=== PATIENT | male | born 1965 | race Caucasian/White ===

== ENCOUNTER → 2018-10-01 | Outpatient (CLI) | payer BC ==
--- NOTE | 2018-10-01 14:29 | ECHOF ---
Referral Reason:R07.9 Chest Pain MEASUREMENTS -------- HEIGHT: 180.3 cm WEIGHT: 95.3 kg BP: 106/49 RVIDd: 2.8 cm (< 3.3) IVSd: 1.2 cm (0.6 - 1.1) LVIDd: 4.1 cm (3.9 - 5.3) LVPWd: 1.3 cm (0.6 - 1.1) IVSs: 1.8 cm LVIDs: 2.3 cm LVPWs: 1.6 cm LA Diam: 3.8 cm (2.7 - 3.8) LAESV Index (A-L): 20.46 ml/m Ao Diam: 3.0 cm (2.0 - 3.7) AV Cusp: 2.0 cm (1.5 - 2.6) MV EXCURSION: 24.078 mm (> 18.000) MV EF SLOPE: 111 mm/s (70 - 150) EPSS: 0.5 cm MV E Todd: 1.04 m/s MV DecT: 201 ms MV A Todd: 0.70 m/s MV E/A Ratio: 1.48 RAP: 5.00 mmHg RVSP: 22.70 mmHg FINDINGS -------- Sinus rhythm. This was a technically good study. The left ventricular size is normal. There is mild concentric left ventricular hypertrophy. Overa ll left ventricular systolic function is normal with, an EF between 60 - 65 %. The right ventricle is normal in size. Normal LA size by volume 22+/-6 ml/m2. The right atrium is normal in size. Interatrial and interventricular septum intact. The aortic valve is trileaflet and appears structurally normal. Trace amount of aortic regurgitatio n. There is trace mitral regurgitation. Mild tricuspid regurgitation present. Right ventricular systolic pressure is normal at < 35 mmHg. Trace/mild (physiologic) pulmonic regurgitation. The aortic root size is normal. Normal inferior vena cava with normal inspiratory collapse consistent with estimated right atrial pre ssure of 5 mmHg. There is no pericardial effusion. CONCLUSIONS -------- 1. Sinus rhythm. 2. This was a technically good study. 3. The left ventricular size is normal. 4. There is mild concentric left ventricular hypertrophy. 5. Overall left ventricular systolic function is normal with, an EF between 60 - 65 %. 6. The right ventricle is normal in size. 7. Normal LA size by volume 22+/-6 ml/m2. 8. The right atrium is normal in size. 9. Interatrial and interventricular septum intact. 10. The aortic valve is trileaflet and appears structurally normal. 11. Trace amount of aortic regurgitation. 12. There is trace mitral regurgitation. 13. Mild tricuspid regurgitation present. 14. Right ventricular systolic pressure is normal at < 35 mmHg. 15. Trace/mild (physiologic) pulmonic regurgitation. 16. The aortic root size is normal. 17. Normal inferior vena cava with normal inspiratory collapse consistent with estimated right atrial pressure of 5 mmHg. 18. There is no pericardial effusion. MOTORCYCLE FABRICATOR: Janell Gil RDCS
--- NOTE | 2018-10-01 15:06 | ECHOS ---
STRESS ECHOCARDIOGRAM DATE OF SERVICE: 10/01/2018 INDICATIONS: Chest pain. MEDICATIONS: Dutasteride, bupropion. BASELINE HEART RATE: 75 BASELINE BLOOD PRESSURE: 106/49 MAXIMUM HEART RATE: 147 MAXIMUM BLOOD PRESSURE: 150/66 85% MPHR: 142 100% MPHR: 167 METS: 9.7 MAXIMUM STAGE REACHED: 3 TOTAL EXERCISE TIME: 8:00 CLINICAL INFORMATION: STRESS DATA: Heart rate is 75. Pressure is 106/49 mmHg. Baseline EKG showed sinus mechanism. The patient exercised on a treadmill according to Lior protocol for a total of 8 minutes and achieved 9.7 METS. Maximum heart rate was 147, which is about 88% of maximum predicted heart rate. Maximum blood pressure was 150/66 mmHg. Clinically the patient developed chest discomfort in response to exercise, and the EKG did show significant ST and T-wave abnormalities concerning for ischemia. ECHOCARDIOGRAM IMAGES: Echocardiogram images from parasternal long-axis view, parasternal short-axis view, apical 4-chamber and apical 2-chamber view were obtained as the baseline images, at the peak of the heart rate as well as on recovery. Wall motion abnormalities concerning for ischemia in the anterior and lateral segments of the LV. CONCLUSION: 1. Good exercise tolerance. 2. EKG changes in response to exercise concerning for ischemia. 3. Echocardiogram in response to exercise concerning for severe CAD. 4. Essentially abnormal stress echocardiogram for the patient. MMODL / IJN: [id number] /
== END | disposition home or self-care (01) ==
LOC: RADECHMAIN 08:20
PROVIDERS: ATTEND Family Medicine
DX: I37.1 Nonrheumatic pulmonary valve insufficiency (principal); I07.1 Rheumatic tricuspid insufficiency; R94.31 Abnormal electrocardiogram [ECG] [EKG]; R07.9 Chest pain, unspecified
CPT/HCPCS: 93306; 93351

== ENCOUNTER 2018-10-11 06:22 | Inpatient (IN) | payer BC ==
[~2018-10-11 06:22] MED LIST: ALPRAZolam 0.25 MG TAB PO PRN; ALPRAZolam 0.5 MG TAB PO PRN; ASPIRIN 325 MG TAB PO STA; ATORVASTATIN 80 MG TAB PO STA; NITROGLYCERIN SL TABS 0.4 MG TAB SUBLINGUAL PRN; SODIUM CHLORIDE 0.9% 1,000 ML in EMPTY BAG 1 BAG IV ONE
[2018-10-11] MEDS ORDERED: LIDOCAINE 1% INJ 10MG/ML (20 ML MDV) SQ ONE (07:50)
[2018-10-11] MEDS ORDERED: MIDAZOLAM (PF) 2 MG/2 ML VIAL IV ONE (07:50)
[2018-10-11] MEDS ORDERED: VERAPAMIL SYRINGE (5 MG/10 ML) INTRAARTER ONE (07:51)
[2018-10-11] MEDS ORDERED: HEPARIN SODIUM 1,000 UN/ML (10ML VL) IV ONE (07:52)
[2018-10-11] MEDS ORDERED: IOPAMIDOL-370 125ML BTL INJ ONE (07:59)
[2018-10-11] MEDS ORDERED: RX INFO: IV CONTRAST WAS GIVEN 1 EACH MISC MISCELLANE PRN (08:26)
[2018-10-11] MEDS ORDERED: SODIUM CHLORIDE 0.9% 1,000 ML IV SCH (08:30)
--- NOTE | 2018-10-11 08:35 | P.PCN ---
Date of Procedure: 10/11/18 Operative Findings: CARDIAC CATHETERIZATION PERFORMING PHYSICIAN: Aung Sheffield MD, VI PREPROCEDURE DIAGNOSES: #1 exertional shortness of breath concerning for angina #2 abnormal stress echocardiogram with evidence off anterior hypokinesia #3 significant family history of coronary artery disease POSTPROCEDURE DIAGNOSES: #1 critical disease involving the distal left main with a complex plaque #2 calcified right and left coronary system PROCEDURE PERFORMED: 1. Selective right and left coronary angiogram 2. Left heart catheterization APPROACH: Right radial artery PROCEDURE DESCRIPTION: After obtaining an informed consent and explaining the procedure benefits, risks, and complications, the patient was brought to cardiac component lab tech. Local anesthesia was performed using lidocaine subcutaneously. The right radial artery was cannulated using Seldinger technique, the guidewire passed easily, following that we advanced a 6-Nepalese sheath dilator assembly, the wire and dilator were removed and sheath was flushed. Following that, 2 mg of verapamil along with 3000 unit heparin were given. Selective right and left coronary angiogram using a 6-Nepalese JR4 and JL 3.5 catheters. Following that we did left heart catheterization using 6-Nepalese pigtail catheter. The procedure was completed there was no complication. SELECTIVE CORONARY ANGIOGRAM: The right coronary artery: Is a large caliber vessel and is a dominant vessel. It does have mild disease only. Distally bifurcates into PDA and PLV branches and both appeared to have mild disease only. Left main: Is a large caliber vessel with distal disease appears to be in the range of 80- 90% with a complex plaque involving the LCx and LAD. The left circumflex: Is a large caliber vessel and codominant vessel. The proximal LCx has mild disease only. The mid LCx appeared to be angiographically normal and gives rises into an OM branch which is a large caliber vessel was mild disease only. Distally the LCx bifurcates into PDA and PLV branches and both appeared to be angiographically normal. The left anterior descending artery: It is a large caliber vessel. The proximal LAD appears to have mild disease only. It gives rises into a small diagonal branch. The mid LAD has mild disease only as well and gives rises into the second diagonal branch which appears to have mild disease only. The LAD distally appears to be angiographically normal. HEMODYNAMICS: The left ventricular end-diastolic pressure was 10-15 mmHg without significant gradient across aortic valve POSTPROCEDURE MANAGEMENT: #1 refer the patient to undergo coronary artery bypass grafting after he will be seen by a cardiothoracic surgeon #2 I did recommend the patient to stay in the hospital and to be started on heparin until he has his surgery done.
[2018-10-11] MEDS ORDERED: MD COMMUNICATION TO PHARMACY 1 EACH MISC PO ONE (10:54)
[2018-10-11 12:24] LABS: Basophils % (A) 1 %; Eosinophils # (A) 0.1 k/uL (0-0.7); Eosinophils % (A) 2 %; HCT 39.5 % (39.0-53.0); HGB 12.8 gm/dL (13.0-17.5); Lymphocytes # (A) 1.9 k/uL (1.0-4.8); Lymphocytes % (A) 27 %; MCH 28.3 pg (25.0-35.0); MCHC 32.4 g/dL (31.0-37.0); MCV 87.5 fL (80.0-100.0); Mean Platelet Volume 7.7; Monocytes # (A) 0.3 k/uL (0-1.0); Monocytes % (A) 4 %; Neutrophils # (A) 4.8 k/uL (1.3-7.7); Neutrophils % (A) 65 %; Platelet Count 225 k/uL (150-450); RBC 4.51 m/uL (4.30-5.90); RDW 14.2 % (11.5-15.5); WBC 7.3 k/uL (3.8-10.6)
[2018-10-11 12:31] LABS: ALT 28 U/L (21-72); AST 21 U/L (17-59); African American GFR (CKD) >90 (>60 ml/min/1.73 sqM); Albumin 3.6 g/dL (3.5-5.0); Alkaline Phosphatase 57 U/L (38-126); Anion Gap 6 mmol/L; Blood Urea Nitrogen 12 mg/dL (9-20); Calcium 8.7 mg/dL (8.4-10.2); Carbon Dioxide 25 mmol/L (22-30); Chloride 109 mmol/L (98-107); Cholesterol 83 mg/dL (<200); Glucose 90 mg/dL (74-99); HDL Cholesterol 28 mg/dL (40-60); LDL Cholesterol,Calculated 46 mg/dL (0-99); Magnesium 2.1 mg/dL (1.6-2.3); Partial Thromboplastin Time 41.7 sec (22.0-30.0); Potassium 4.6 mmol/L (3.5-5.1); Prothrombin Time 10.4 sec (9.0-12.0); Sodium 140 mmol/L (137-145); Total Bilirubin 1.4 mg/dL (0.2-1.3); Total Protein 6.3 g/dL (6.3-8.2); Triglycerides 44 mg/dL (<150)
[2018-10-11 12:50] LABS: Appearance,Urine Clear (Clear); Bilirubin,Urine Negative (Negative); Blood,Urine Negative (Negative); Color,Urine Light Yellow; Glucose,Urine (UA) Negative (Negative); Ketones,Urine Negative (Negative); Leukocyte Esterase,Urine Negative (Negative); Nitrite,Urine Negative (Negative); PH, Urine 6.5 (5.0-8.0); Protein,Urine Negative (Negative); Specific Gravity,Urine 1.015 (1.001-1.035); Urobilinogen,Urine <2.0 mg/dL (<2.0)
--- NOTE | 2018-10-11 13:20 | P.GSCN ---
<Aisha Hickman - Last Filed: 10/11/18 12:55> History of Present Illness Consult date: 10/11/18 Reason for Consult: Coronary artery disease with significant left main disease, surgical recommendat ions Requesting physician: Aung Sheffield History of present illness: This is a 53-year-old active gentleman who follows on an outpatient basis with Dr. Gentry Banegas. He has no significant previous medical history other than obstructive sleep apnea with home CPAP use, remote tobacco dependence greater than 30 years ago and significant family history of coronary artery disease. He had been experiencing exertional chest tightness and burning sensation associated with shortness of breath for approximately 1 year. He did discuss this at his yearly follow-up exams with Dr. Banegas, however EKG done in the office was normal and he was having no other symptoms so this continued to be monitored. His symptoms continued, he had decreased exercise tolerance associated with shortness of breath and profuse sweating, and he was referred to Dr. Sheffield at [facility] for evaluation. He underwent stress testing which demonstrated anterior and lateral wall EKG changes. He was recommended to undergo heart catheterization which was completed today and which demonstrated distal left main disease with 80-90% stenosis at the bifurcation of the LAD and left circumflex with no other significant arterial stenosis. Due to the patient's symptoms and significant left main disease consultation was placed to Dr. Tijerina for surgical revascularization recommendations. Of note, the patient had a transthoracic echocardiogram on 10/01/2018 which demonstrated normal LV function with EF 60-65%, trace aortic regurgitation, trace mitral regurgitation, and mild tricuspid regurgitation. Review of Systems Review of systems was completed and was negative except as noted. - Cardiovascular Reports as per HPI, Reports chest pain, Reports decreased exercise tolerance, Reports dyspnea on exertion, Reports shortness of breath Past Medical History Past Medical History: Chest Pain / Angina, Sleep Apnea/CPAP/BIPAP Additional Past Medical History / Comment(s): chest discomfort & burning w/exertion History of Any Multi-Drug Resistant Organisms: None Reported Past Surgical History: Hernia Repair Past Anesthesia/Blood Transfusion Reactions: No Reported Reaction Past Psychological History: No Psychological Hx Reported Smoking Status: Former smoker Past Alcohol Use History: Rare Past Drug Use History: None Reported - Past Family History Father Family Medical History: Myocardial Infarction ([place]) Additional Family Medical History / Comment(s): Cardiac stenting and 62 years old. Also maternal grandfather of massive myocardial infarction Medications and Allergies Home Medications Medication Instructions Recorded Confirmed Type Aspirin 81 mg PO DAILY 10/07/18 10/11/18 History Atorvastatin [Lipitor] 80 mg PO DAILY 10/07/18 10/11/18 History Dutasteride 0.5 mg PO DAILY 10/07/18 10/11/18 History Isosorbide Mononitrate [Isosorbide 30 mg PO DAILY 10/07/18 10/11/18 History Mononitrate ER] Metoprolol Tartrate [Lopressor] 12.5 mg PO BID 10/07/18 10/11/18 History buPROPion HCL [Wellbutrin Sr] 100 mg PO DAILY 10/07/18 10/11/18 History Allergies Allergy/AdvReac Type Severity Reaction Status Date / Time bee venom protein (honey bee) Allergy Rash/Hives Verified 10/11/18 19:44 Sulfa (Sulfonamide Allergy Rash/Hives Verified 10/11/18 19:44 Antibiotics) Surgical - Exam Vital Signs Temp Pulse Resp BP Pulse Ox 98.1 F 63 18 112/67 97 10/11/18 07:02 10/11/18 07:02 10/11/18 07:02 10/11/18 07:02 10/11/18 07:02 - General well developed, well nourished, no distress, no pain - Eyes PERRL, normal ocular movement - ENT no hearing loss - Neck no masses, no bruits, trachea midline - Respiratory Lungs sounds clear bilaterally. Respirations even, nonlabored. Currently on room air oxygen saturation 95%. No chest wall deformities. - Cardiovascular S1, S2 present. Slow but regular rate and rhythm, sinus bradycardia on telemetry with heart rate in the 50s. Palpable peripheral pulses bilaterally. No edema present. No calf pain or tenderness noted. No varicosities noted. Negative Cornelius's test to left radial artery. Right radial heart catheterization site without swelling or drainage, T-Band in place. - Abdomen Abdomen: soft, non tender, bowel sounds - Genitourinary Deferred - Rectum Deferred - Integumentary no rash, no growths, no abnormal pigmentation - Neurologic normal coordination, normal sensation - Musculoskeletal normal posture - Psychiatric oriented to time, oriented to person, oriented to place, speech is normal, memory intact Results - Labs 10/11/18 11:53 10/11/18 11:53 Abnormal Lab Results - Last 24 Hours (Table) 10/11/18 10/11/18 10/11/18 Range/Units 11:53 11:53 11:53 Hgb 12.8 L (13.0-17.5) gm/dL APTT 41.7 H (22.0-30.0) sec Chloride 109 H (98-107) mmol/L Total Bilirubin 1.4 H (0.2-1.3) mg/dL HDL Cholesterol 28 L (40-60) mg/dL Diabetes panel 10/11/18 Range/Units 11:53 Sodium 140 (137-145) mmol/L Potassium 4.6 (3.5-5.1) mmol/L Chloride 109 H (98-107) mmol/L Carbon Dioxide 25 (22-30) mmol/L BUN 12 (9-20) mg/dL Creatinine 0.77 (0.66-1.25) mg/dL Glucose 90 (74-99) mg/dL Calcium 8.7 (8.4-10.2) mg/dL AST 21 (17-59) U/L ALT 28 (21-72) U/L Alkaline Phosphatase 57 (38-126) U/L Total Protein 6.3 (6.3-8.2) g/dL Albumin 3.6 (3.5-5.0) g/dL Triglycerides 44 (<150) mg/dL HDL Cholesterol 28 L (40-60) mg/dL Calcium panel 10/11/18 Range/Units 11:53 Calcium 8.7 (8.4-10.2) mg/dL Albumin 3.6 (3.5-5.0) g/dL Pituitary panel 10/11/18 Range/Units 11:53 Sodium 140 (137-145) mmol/L Potassium 4.6 (3.5-5.1) mmol/L Chloride 109 H (98-107) mmol/L Carbon Dioxide 25 (22-30) mmol/L BUN 12 (9-20) mg/dL Creatinine 0.77 (0.66-1.25) mg/dL Glucose 90 (74-99) mg/dL Calcium 8.7 (8.4-10.2) mg/dL Adrenal panel 10/11/18 Range/Units 11:53 Sodium 140 (137-145) mmol/L Potassium 4.6 (3.5-5.1) mmol/L Chloride 109 H (98-107) mmol/L Carbon Dioxide 25 (22-30) mmol/L BUN 12 (9-20) mg/dL Creatinine 0.77 (0.66-1.25) mg/dL Glucose 90 (74-99) mg/dL Calcium 8.7 (8.4-10.2) mg/dL Total Bilirubin 1.4 H (0.2-1.3) mg/dL AST 21 (17-59) U/L ALT 28 (21-72) U/L Alkaline Phosphatase 57 (38-126) U/L Total Protein 6.3 (6.3-8.2) g/dL Albumin 3.6 (3.5-5.0) g/dL - Imaging Additional studies: Heart catheterization results reviewed Assessment and Plan Assessment: 1. Coronary artery disease with significant left main disease 2. Obstructive sleep apnea with home CPAP use 3. Family history of significant coronary artery disease 4. Remote tobacco dependence Plan: The patient was seen and examined at the bedside in the extended stay unit. Chart/diagnostics were reviewed. The case will be discussed in detail with Dr. Tijerina. The usual perioperative course was discussed in detail with the patient and his , all risks and benefits were explained, all questions were answer ed. Preoperative testing was initiated. The patient remains chest pain free. At this time we recommend continuing to maximize medical therapy with aspirin, statin, beta blockers. We will review preoperative testing as it becomes available and calculate an STS risk score. 5 m walk test will be completed. Activity should be increased as tolerated. Patient should be encouraged to use incentive spirometry. Continue medical management per Dr. Sheffield. More recommendations to follow regarding surgical revascularization once Dr. Tijerina has had the opportunity to review heart catheterization films and preoperative testing. Thank you Dr. Sheffield for this consult. We look forward to working with you in the care of your patient. Time with Patient: Greater than 30 <Chuck Tijerina - Last Filed: 10/12/18 14:05> Surgical - Exam Vital Signs Temp Pulse Resp BP Pulse Ox 98.1 F 63 18 112/67 97 10/11/18 07:02 10/11/18 07:02 10/11/18 07:02 10/11/18 07:02 10/11/18 07:02 Results - Labs 10/11/18 11:53 10/11/18 11:53 Abnormal Lab Results - Last 24 Hours (Table) 10/12/18 10/12/18 10/12/18 Range/Units 01:45 01:45 08:23 APTT 36.0 H (22.0-30.0) sec ABG pH (7.35-7.45) ABG pCO2 (35-45) mmHg ABG pO2 (83-108) mmHg ABG Total CO2 25 H (19-24) mmol/L ABG O2 Saturation (94-97) % ABG Hematocrit (34.0-46.0) % ABG Sodium (135-146) mmol/L ABG Potassium (3.4-4.5) mmol/L ABG Ionized Calcium (4.5-5.3) mg/dL ABG Glucose (75-99) mg/dL Hemoglobin (13.0-17.5) gm/dL Arterial Blood Potassium (3.4-4.5) mmol/L Arterial Blood Glucose (75-99) mg/dL Crossmatch See Detail 10/12/18 10/12/18 10/12/18 Range/Units 09:50 10:57 10:57 APTT (22.0-30.0) sec ABG pH 7.31 L 7.31 L (7.35-7.45) ABG pCO2 49 H 48 H (35-45) mmHg ABG pO2 125 H 50 L* >420 H (83-108) mmHg ABG Total CO2 26 H 26 H (19-24) mmol/L ABG O2 Saturation 98.9 H 85.5 L 100.0 H (94-97) % ABG Hematocrit 30 L 30 L (34.0-46.0) % ABG Sodium 131 L 131 L (135-146) mmol/L ABG Potassium 6.0 H 5.6 H (3.4-4.5) mmol/L ABG Ionized Calcium 4.1 L 4.0 L (4.5-5.3) mg/dL ABG Glucose 130 H 219 H 217 H (75-99) mg/dL Hemoglobin 9.8 L 9.7 L (13.0-17.5) gm/dL Arterial Blood Potassium 6.0 H 5.6 H (3.4-4.5) mmol/L Arterial Blood Glucose 130 H 219 H 217 H (75-99) mg/dL Crossmatch 10/12/18 10/12/18 Range/Units 11:28 11:56 APTT (22.0-30.0) sec ABG pH (7.35-7.45) ABG pCO2 (35-45) mmHg ABG pO2 407 H 412 H (83-108) mmHg ABG Total CO2 26 H 27 H (19-24) mmol/L ABG O2 Saturation 100.0 H 100.0 H (94-97) % ABG Hematocrit 30 L 30 L (34.0-46.0) % ABG Sodium 133 L 134 L (135-146) mmol/L ABG Potassium 5.1 H 4.6 H (3.4-4.5) mmol/L ABG Ionized Calcium 4.1 L 4.2 L (4.5-5.3) mg/dL ABG Glucose 209 H 215 H (75-99) mg/dL Hemoglobin 9.6 L 9.7 L (13.0-17.5) gm/dL Arterial Blood Potassium 5.1 H 4.6 H (3.4-4.5) mmol/L Arterial Blood Glucose 209 H 215 H (75-99) mg/dL Crossmatch Microbiology - Last 24 Hours (Table) 10/11/18 12:20 Nasal Screen MRSA/MSSA - Preliminary Nasal Swab 10/11/18 12:20 Urine Culture - Preliminary Urine,Clean Catch Diabetes panel 10/11/18 Range/Units 11:53 Hemoglobin A1c 5.8 (4.0-6.0) % Assessment and Plan Plan: The patient was seen and examined. I agree with the above assessment and plan. The patient is a 53-year-old male who reports exertional chest pain and shortness of breath over the past several months. Cardiac workup today revealed a tight left main coronary artery lesion. A coronary artery bypass is r ecommended. The risks, benefits, and alternatives to this procedure including but not limited to the risk of stroke, infection, need for blood transfusion, myocardial infarction, dialysis, and were discussed with the patient. All his questions were answered. Consent was obtained. The patient is currently hemodynamically stable and chest pain-free. We will begin intravenous heparin later this evening. His preoperative workup is underway. We will plan on performing his procedure tomorrow morning
--- NOTE | 2018-10-11 15:46 | XR ---
EXAMINATION TYPE: XR chest 2V DATE OF EXAM: 10/11/2018 COMPARISON: None HISTORY: 53-year-old male preop cardiac surgery TECHNIQUE: Frontal and lateral views FINDINGS: Heart normal size. Aorta and pulmonary vasculature within normal limits. Mild interstitial densities in the lower lungs with some strandy atelectasis at the left base. Upper and mid lungs appear clear. No pleural effusion. IMPRESSION: Accentuated interstitial changes at the lung bases may be chronic related to some underlying fibrosis versus hypoventilatory changes. Upper and mid lungs are clear.
[2018-10-11 18:10] LABS: Hepatitis A Antibody IgM Non-Reactive (Non-Reactive); Hepatitis B Core IgM Non-Reactive (Non-Reactive)
[2018-10-11] MEDS ORDERED: HEPARIN SOD,PORK IN 0.45% NACL 25,000 UNIT in 0.45% NACL 1 250ML.BAG IV SCH (20:00)
[2018-10-11 20:03] LABS: Glucose,Whole Blood 95 mg/dL (75-99)
[2018-10-11 20:17] LABS: Hemoglobin A1C 5.8 % (4.0-6.0)
[2018-10-11] MEDS ORDERED: LACTATED RINGERS 1,000 ML IV SCH (21:32)
--- NOTE | 2018-10-11 22:48 | US ---
EXAMINATION TYPE: US carotid duplex BILAT DATE OF EXAM: 10/11/2018 COMPARISON: NONE CLINICAL HISTORY: Pre-Op Cardiac Surgery. EXAM MEASUREMENTS: RIGHT: Peak Systolic Velocity (PSV) cm/sec ----- Right CCA: 82.3 ----- Right ICA: 84.6 ----- Right ECA: 95.1 ICA/CCA ratio: 1.0 RIGHT: End Diastole cm/sec ----- Right CCA: 15.3 ----- Right ICA: 29.9 ----- Right ECA: 10. LEFT: Peak Systolic Velocity (PSV) cm/sec ----- Left CCA: 71.6 ----- Left ICA: 66.4 ----- Left ECA: 125.0 ICA/CCA ratio: 0.9 LEFT: End Diastole cm/sec ----- Left CCA: 15.5 ----- Left ICA: 0 ----- Left ECA: 12.4 VERTEBRALS (direction of flow): Right Vertebral: Antegrade Left Vertebral: Antegrade Rhythm: Normal IMPRESSION: No significant stenoses.
[2018-10-12] MEDS ORDERED: HEPARIN SODIUM,PORCINE 5,000 UNIT/ML 1 ML VIAL IV STA (02:30)
[2018-10-12] MEDS ORDERED: PROTAMINE SULFATE 10 MG/ML 25 ML VIAL IV ONE ×2 (05:00→07:30)
[2018-10-12] MEDS ORDERED: ALBUMIN HUMAN 25% 50 ML in EMPTY BAG 1 BAG IVPB ONE (06:00)
[2018-10-12] MEDS ORDERED: ceFAZolin 2,000 MG in SODIUM CHLORIDE 0.9% 30 ML IVPB ONE (06:00)
[2018-10-12] MEDS ORDERED: DILTIAZEM 125 MG in SODIUM CHLORIDE 0.9% 100 ML IV SCH (06:00)
[2018-10-12] MEDS ORDERED: DEXTROSE 5% IN WATER 1,000 ML with POTASSIUM CHLORIDE 110 MEQ, MAGNESIUM SULFATE 16 MEQ... IV SCH ×5 (06:00)
[2018-10-12] MEDS ORDERED: CLEVIDIPINE BUTYRATE 25 MG in EMPTY BAG 1 BAG IV SCH ×2 (06:00→13:51)
[2018-10-12] MEDS ORDERED: MANNITOL 25% 12.5 GM/50 ML VIAL IV ONE ×2 (06:00)
[2018-10-12] MEDS ORDERED: PHENYLEPHRINE 40 MG in SODIUM CHLORIDE 0.9% 250 ML IV ONE (06:00)
[2018-10-12] MEDS ORDERED: NITROGLYCERIN-D5W PMX 25 MG/250 ML BTL IV ONE (06:00)
[2018-10-12] MEDS ORDERED: TRANEXAMIC ACID 2,000 MG in SODIUM CHLORIDE 0.9% 80 ML IV ONE (06:00)
[2018-10-12] MEDS ORDERED: ALBUMIN HUMAN 5% 500 ML in EMPTY BAG 1 BAG IVPB ONE ×6 (06:00)
[2018-10-12] MEDS ORDERED: CALCIUM CHLORIDE 100 MG/ML 10 ML SYRINGE IVP ONE (06:00)
[2018-10-12] MEDS ORDERED: LACTATED RINGERS 1,000 ML IV SCH (06:00)
[2018-10-12] MEDS ORDERED: HEPARIN SODIUM 1,000 UN/ML (10ML VL) IV ONE (06:00)
[2018-10-12] MEDS ORDERED: PROTAMINE SULFATE 250 MG in EMPTY BAG 1 BAG IV ONE (06:00)
[2018-10-12] MEDS ORDERED: DEXTROSE 5% IN WATER 1,000 ML with POTASSIUM CHLORIDE 25 MEQ, SODIUM CHLORIDE 2.5MEQ/ML... IV SCH ×6 (06:00)
[2018-10-12] MEDS ORDERED: NOREPINEPHRINE 4 MG in SODIUM CHLORIDE 0.9% 250 ML IV SCH (06:00)
[2018-10-12] MEDS ORDERED: MAGNESIUM SULFATE SYG 4.06 MEQ/ML SYRINGE IV ONE (06:00)
[2018-10-12] MEDS ORDERED: SODIUM BICARB 8.4% 50 ML SYR (1 MEQ/ML) IV ONE (06:00)
[2018-10-12] MEDS ORDERED: INSULIN REGULAR 100 UNIT in SODIUM CHLORIDE 0.9% 100 ML IV SCH ×2 (06:00→14:15)
[2018-10-12] MEDS ORDERED: ceFAZolin 2 GM in SODIUM CHLORIDE 0.9% 30 ML IVPB ONE (06:00)
[2018-10-12] MEDS ORDERED: CHLORHEXIDINE GLUCONATE 15 ML CUP MUCOUS MEM ONE (06:00)
[2018-10-12] MEDS ORDERED: PHENYLEPHRINE 10 MG/ML VIAL IV ONE (06:00)
[2018-10-12] MEDS ORDERED: ceFAZolin 1,000 MG in SODIUM CHLORIDE 0.9% IRRIGATIO 1,000 ML IRRIGATION ONE (06:00)
[2018-10-12] MEDS ORDERED: ATORVASTATIN 10 MG TAB PO ONE (06:00)
[2018-10-12] MEDS ORDERED: ASPIRIN 325 MG TAB PO ONE (06:00)
[2018-10-12] MEDS ORDERED: METOPROLOL TARTRATE 12.5 MG TAB PO ONE (06:00)
[2018-10-12] MEDS ORDERED: PROPOFOL 1,000 MG in EMPTY BAG 1 BAG IV PRN (06:00)
--- NOTE | 2018-10-12 06:09 | P.PN ---
Progress Note - Text Progress Note Date: 10/12/18 5 meter walk test completed: #1 5.12 sec #2 4.87 sec #3 4.28 sec
[2018-10-12] MEDS ORDERED: LACTATED RINGERS 1,000 ML BAG IV ONE (07:30)
[2018-10-12] MEDS ORDERED: fentaNYL (PF) 50 MCG/ML 50 ML VIAL ONE (07:30)
[2018-10-12] MEDS ORDERED: PHENYLEPHRINE-0.9% NACL SYG 1 MG/10 ML SYRINGE ONE (07:30)
[2018-10-12] MEDS ORDERED: PROTAMINE SULFATE 10 MG/ML 5 ML VIAL IV ONE (07:30)
[2018-10-12] MEDS ORDERED: ELECTROLYTE-R (PH 7.4) 1,000 ML IV.SOLN IV ONE (07:30)
[2018-10-12] MEDS ORDERED: POTASSIUM CHLORIDE OPEN HEART 20 MEQ/50 ML BAG IVPB ONE (07:30)
[2018-10-12] MEDS ORDERED: fentaNYL (PF) 50 MCG/ML 2 ML AMP ONE (07:30)
[2018-10-12] MEDS ORDERED: SUCCINYLCHOLINE CHLORIDE 100 MG/5 ML SYR IV ONE (07:30)
[2018-10-12] MEDS ORDERED: MIDAZOLAM 2 MG/2 ML VIAL ONE (07:30)
[2018-10-12] MEDS ORDERED: PROPOFOL 10 MG/ML 20 ML VIAL IV ONE (07:30)
[2018-10-12] MEDS ORDERED: HEPARIN SODIUM,PORCINE 5,000 UNIT/ML 1 ML VIAL ONE (07:30)
[2018-10-12] MEDS ORDERED: NITROGLYCERIN-D5W PMX 50 MG/250 ML BOTTLE IV ONE (07:30)
[2018-10-12] MEDS ORDERED: CALCIUM CHLORIDE 100 MG/ML 10 ML SYRINGE ONE (07:30)
[2018-10-12] MEDS ORDERED: HEPARIN SODIUM,PORCINE 10,000 UNIT/ML 1 ML VIAL ONE (07:30)
[2018-10-12] MEDS ORDERED: INSULIN REGULAR 100 UNIT/ML VIAL ONE (07:30)
[2018-10-12] MEDS ORDERED: VECURONIUM 10 MG VIAL IV ONE (07:30)
[2018-10-12] MEDS ORDERED: MAGNESIUM SULFATE 4 MEQ/ML 10ML VIAL ONE (07:30)
[2018-10-12] MEDS ORDERED: SODIUM CHLORIDE 0.9% 250 ML BAG ONE (07:30)
[2018-10-12] MEDS ORDERED: TRANEXAMIC ACID 1,000 MG/10 ML VIAL ONE (07:30)
[2018-10-12 08:22] LABS: ABG Base Excess -2.2 mmol/L; ABG Glucose Whole Blood 99 mg/dL (75-99); ABG HCO3 23 mmol/L (21-25); ABG Hematocrit 40 % (34.0-46.0); ABG Ionized Calcium 4.6 mg/dL (4.5-5.3); ABG Lactic Acid Whole Blood 1.3 mmol/L (0.5-1.6); ABG Oxygen Saturation 96.8 % (94-97); ABG PCO2 42 mmHg (35-45); ABG PH 7.35 (7.35-7.45); ABG PO2 85 mmHg (83-108); ABG Potassium Whole Blood 4.4 mmol/L (3.4-4.5); ABG Sodium Whole Blood 138 mmol/L (135-146); ABG TCO2 25 mmol/L (19-24)
[2018-10-12] MEDS: HEPARIN SODIUM,PORCINE 5,000 UNIT in SODIUM CHLORIDE 0.9% 500 ML 500 ML IV ONE ×3 (08:53→09:47)
[2018-10-12] MEDS: PAPAVERINE 360 MG in SODIUM CHLORIDE 0.9% 90 ML IV ONE ×3 (08:53→09:46)
[2018-10-12 09:50] LABS: ABG Base Excess -2.2 mmol/L; ABG Glucose Whole Blood 130 mg/dL (75-99); ABG HCO3 25 mmol/L (21-25); ABG Hematocrit 41 % (34.0-46.0); ABG Ionized Calcium 4.6 mg/dL (4.5-5.3); ABG Lactic Acid Whole Blood 0.7 mmol/L (0.5-1.6); ABG Oxygen Saturation 98.9 % (94-97); ABG PCO2 49 mmHg (35-45); ABG PH 7.31 (7.35-7.45); ABG PO2 125 mmHg (83-108); ABG Potassium Whole Blood 4.3 mmol/L (3.4-4.5); ABG Sodium Whole Blood 138 mmol/L (135-146); ABG TCO2 26 mmol/L (19-24)
[2018-10-12 10:54] LABS: ABG Base Excess -2.2 mmol/L; ABG Glucose Whole Blood 219 mg/dL (75-99); ABG HCO3 24 mmol/L (21-25); ABG Hematocrit 30 % (34.0-46.0); ABG Ionized Calcium 4.1 mg/dL (4.5-5.3); ABG Lactic Acid Whole Blood 0.8 mmol/L (0.5-1.6); ABG Oxygen Saturation 85.5 % (94-97); ABG PCO2 48 mmHg (35-45); ABG PH 7.31 (7.35-7.45); ABG Sodium Whole Blood 131 mmol/L (135-146); ABG TCO2 26 mmol/L (19-24)
[2018-10-12 10:56] LABS: ABG Base Excess -2.3 mmol/L; ABG Glucose Whole Blood 217 mg/dL (75-99); ABG HCO3 23 mmol/L (21-25); ABG Hematocrit 30 % (34.0-46.0); ABG Lactic Acid Whole Blood 0.8 mmol/L (0.5-1.6); ABG PCO2 40 mmHg (35-45); ABG PH 7.37 (7.35-7.45); ABG Potassium Whole Blood 5.6 mmol/L (3.4-4.5); ABG Sodium Whole Blood 131 mmol/L (135-146); ABG TCO2 24 mmol/L (19-24)
[2018-10-12 11:27] LABS: ABG Base Excess 0.4 mmol/L; ABG Glucose Whole Blood 209 mg/dL (75-99); ABG HCO3 25 mmol/L (21-25); ABG Hematocrit 30 % (34.0-46.0); ABG Ionized Calcium 4.1 mg/dL (4.5-5.3); ABG Lactic Acid Whole Blood 0.9 mmol/L (0.5-1.6); ABG PCO2 40 mmHg (35-45); ABG PH 7.41 (7.35-7.45); ABG PO2 407 mmHg (83-108); ABG Potassium Whole Blood 5.1 mmol/L (3.4-4.5); ABG Sodium Whole Blood 133 mmol/L (135-146); ABG TCO2 26 mmol/L (19-24)
[2018-10-12 11:54] LABS: ABG Base Excess 0.6 mmol/L; ABG Glucose Whole Blood 215 mg/dL (75-99); ABG HCO3 25 mmol/L (21-25); ABG Hematocrit 30 % (34.0-46.0); ABG Ionized Calcium 4.2 mg/dL (4.5-5.3); ABG PCO2 41 mmHg (35-45); ABG PO2 412 mmHg (83-108); ABG Potassium Whole Blood 4.6 mmol/L (3.4-4.5); ABG Sodium Whole Blood 134 mmol/L (135-146); ABG TCO2 27 mmol/L (19-24)
[2018-10-12] MEDS ORDERED: ONDANSETRON 4 MG/2 ML VIAL IVP PRN (13:51)
[2018-10-12] MEDS ORDERED: AMIODARONE 300 MG in DEXTROSE 5% IN WATER 250 ML IV PRN ×2 (13:51)
[2018-10-12] MEDS ORDERED: IPRATROPIUM-ALBUTEROL 3 ML NEB INHALATION PRN (13:51)
[2018-10-12] MEDS ORDERED: Phosphorus Replacement Protoco 1 EACH MISC MISCELLANE PRN (13:51)
[2018-10-12] MEDS ORDERED: BENZOCAINE/MENTHOL LOZENG 1 EACH LOZENGE MUCOUS MEM PRN (13:51)
[2018-10-12] MEDS ORDERED: METOCLOPRAMIDE 5 MG/ML 2 ML VIAL IVP PRN (13:51)
[2018-10-12] MEDS ORDERED: Magnesium Replacement Protocol 1 EACH MISC MISCELLANE PRN (13:51)
[2018-10-12] MEDS ORDERED: PROPOFOL 1,000 MG in EMPTY BAG 1 BAG IV SCH (13:51)
[2018-10-12] MEDS ORDERED: AMIODARONE 360 MG in DEXTROSE 5% IN WATER 200 ML IV PRN ×2 (13:51)
[2018-10-12] MEDS ORDERED: Potassium Replacement Protocol 1 EACH MISC MISCELLANE PRN (13:51)
[2018-10-12 13:59] LABS: ABG PO2 50 mmHg (83-108); ABG PO2 >420 mmHg (83-108)
[2018-10-12] MEDS ORDERED: DEXTROSE 5% IN WATER 100 ML with AMIODARONE 150 MG IV PRN (14:03)
[2018-10-12 14:11] LABS: Glucose,Whole Blood 121 mg/dL (75-99)
[2018-10-12 14:25] LABS: Ionized Calcium 5.1 mg/dL (4.5-5.3)
[2018-10-12 14:27] LABS: INR 1.1 (<1.2)
[2018-10-12 14:28] LABS: Basophils % (A) 0 %; Eosinophils # (A) 0.1 k/uL (0-0.7); Eosinophils % (A) 1 %; HCT 34.2 % (39.0-53.0); HGB 11.8 gm/dL (13.0-17.5); Lymphocytes % (A) 10 %; MCH 29.3 pg (25.0-35.0); MCHC 34.4 g/dL (31.0-37.0); Mean Platelet Volume 8.2; Monocytes # (A) 0.3 k/uL (0-1.0); Monocytes % (A) 3 %; Neutrophils # (A) 9.3 k/uL (1.3-7.7); Neutrophils % (A) 87 %; Partial Thromboplastin Time 24.5 sec (22.0-30.0); Platelet Count 147 k/uL (150-450); Prothrombin Time 11.4 sec (9.0-12.0); RBC 4.03 m/uL (4.30-5.90); RDW 14.1 % (11.5-15.5); WBC 10.7 k/uL (3.8-10.6)
[2018-10-12 14:30] LABS: ABG Base Excess 1.9 mmol/L; ABG HCO3 27 mmol/L (21-25); ABG Oxygen Saturation 99.4 % (94-97); ABG PCO2 44 mmHg (35-45); ABG PH 7.39 (7.35-7.45); ABG PO2 184 mmHg (83-108); ABG TCO2 28 mmol/L (19-24)
[2018-10-12 14:34] LABS: Allen Test Performed? no
[2018-10-12 14:37] LABS: ALT 28 U/L (21-72); AST 42 U/L (17-59); African American GFR (CKD) >90 (>60 ml/min/1.73 sqM); Albumin 2.8 g/dL (3.5-5.0); Alkaline Phosphatase 41 U/L (38-126); Anion Gap 3 mmol/L; Blood Urea Nitrogen 9 mg/dL (9-20); Calcium 8.4 mg/dL (8.4-10.2); Carbon Dioxide 27 mmol/L (22-30); Chloride 108 mmol/L (98-107); Glucose 124 mg/dL (74-99); Magnesium 2.7 mg/dL (1.6-2.3); Potassium 4.7 mmol/L (3.5-5.1); Sodium 138 mmol/L (137-145); Total Protein 5.1 g/dL (6.3-8.2)
--- NOTE | 2018-10-12 14:37 | XR ---
EXAMINATION TYPE: XR chest 1V portable DATE OF EXAM: 10/12/2018 CLINICAL HISTORY: Post open cardiac surgery. TECHNIQUE: Single AP portable supine view of the chest is obtained. COMPARISON: Chest x-ray from one day earlier. FINDINGS: There is new endotracheal tube terminating at inferior clavicular margin, approximately 4 cm above the pilar. There is new orogastric tube projecting below diaphragm. There is new right inte rnal jugular Belton-Alejandro catheter projecting at level of pulmonary outflow tract. There are 2 new media stinal drainage catheters and left-sided chest tube. Low lung volumes are redemonstrated. There is pa tchy lateral left basilar atelectasis and/or infiltrate. New sternal wires and mediastinal clips are seen. Overlying EKG leads are redemonstrated. Subcutaneous emphysema lateral left chest wall is now n oted. No sizable pneumothorax. Patchy medial right basilar atelectasis. Cardiac silhouette size is st able and upper limits of normal. IMPRESSION: 1. New tubes and lines as detailed above felt satisfactory in position. 2. Low lung volumes with patchy left greater than right bibasilar atelectasis and/or infiltrate. New left-sided subcutaneous emphysema without pneumothorax. Left-sided chest tube noted.
[2018-10-12] MEDS ORDERED: CALCIUM GLUCONATE 2 GM in SODIUM CHLORIDE 0.9% 100 ML IVPB PRN (15:00)
[2018-10-12 15:04] LABS: Glucose,Whole Blood 110 mg/dL (75-99)
--- NOTE | 2018-10-12 15:19 | P.CNPUL ---
History of Present Illness Consult date: 10/12/18 Requesting physician: Chuck Tijerina Reason for consult: other Chief complaint: Coronary artery disease, left main stenosis History of present illness: This is a 53-year-old white male patient Bassam, with past medical history of obstructive sleep apnea with home CPAP use, remote tobacco dependence greater than 30 years ago, and significant family history of coronary artery disease with has been experiencing exertional chest tightness and burning sensation associated with shortness of breath for a period of one year. Patient was also having decreased exercise tolerance, associated with diaphoresis, and shortness of breath, and she was referred to Dr. Rutledge for evaluation, stress test reveal ed anterior and lateral wall EKG changes, patient underwent heart catheterization which showed distal left main disease with 80-90% stenosis at the bifurcation of the LAD and left circumflex with no other significant arterial stenosis. Echocardiogram showed preserved left ventricular systolic function with an EF of 60-65%, trace aortic regurgitation, trace mitral regurgitation, and mild tricuspid regurgitation. Patient was referred to cardiothoracic surgery, and today on 10/12/2018 patient underwent two-vessel bypass grafting, with MALHOTRA to LAD, and left radial artery to the obtuse marginal. Patient is seen in the intensive care unit, he is sedated, intubated on mechanical ventilator, with current vent settings of SIMV with a rate of 12, tidal volume of 600, FiO2 of 100%, and PEEP of 5, and postop blood gases showed pO2 of 184, pCO2 44, and pH of 7.39, this was done and FiO2 100%, and patient is taken small tidal volumes with spontaneous breaths, patient was placed on assist-control mode of ventilation, the same rate, tidal volume, FiO2 is currently at 80%, and PEEP of 5. Ringer's at rate of 50 ML per hour, nitroglycerin drip is at 5 mics per minute, clever proximal is at 4 mg per hour, Cardizem drip is at 5 mg per hour, Diprivan and is at 10 mics per kilo per minute. Midsternal incision is clean dry and intact, covered with surgical dressing, 2 mediastinal and left pleural chest tube, with scant amount of sanguinous output. Cardiac index is 5.4 and 2.5. Patient is sinus rhythm on the monitor with a rate of 73, epicardial wires with backup rate on the external pacemaker. Patient has a Castelan catheter in place, and producing clear yellow urine. Patient is nonoliguric. Review of Systems All systems: negative Constitutional: Denies chills, Denies fever Eyes: denies blurred vision, denies pain Ears, nose, mouth and throat: Denies headache, Denies sore throat Cardiovascular: Denies chest pain, Denies shortness of breath Respiratory: Denies cough Gastrointestinal: Denies abdominal pain, Denies diarrhea, Denies nausea, Denies vomiting Musculoskeletal: Denies myalgias Integumentary: Denies pruritus, Denies rash Neurological: Denies numbness, Denies weakness Psychiatric: Denies anxiety, Denies depression Endocrine: Denies fatigue, Denies weight change Past Medical History Past Medical History: Chest Pain / Angina, Sleep Apnea/CPAP/BIPAP Additional Past Medical History / Comment(s): chest discomfort & burning w/exertion, pt had sleep study and was given an appliance in 2016. does not wear cpap History of Any Multi-Drug Resistant Organisms: None Reported Past Surgical History: Hernia Repair Past Anesthesia/Blood Transfusion Reactions: No Reported Reaction Past Psychological History: No Psychological Hx Reported Smoking Status: Former smoker Past Alcohol Use History: Rare Additional Past Alcohol Use History / Comment(s): quit smoking >30 yrs. ago, smoked <ppd for 15 yrs. Past Drug Use History: None Reported - Past Family History Father Family Medical History: Myocardial Infarction ([place]) Additional Family Medical History / Comment(s): Cardiac stenting and 62 years old. Also maternal grandfather of massive myocardial infarction Medications and Allergies Home Medications Medication Instructions Recorded Confirmed Type Aspirin 81 mg PO DAILY 10/07/18 10/11/18 History Atorvastatin [Lipitor] 80 mg PO DAILY 10/07/18 10/11/18 History Dutasteride 0.5 mg PO DAILY 10/07/18 10/11/18 History Isosorbide Mononitrate [Isosorbide 30 mg PO DAILY 10/07/18 10/11/18 History Mononitrate ER] Metoprolol Tartrate [Lopressor] 12.5 mg PO BID 10/07/18 10/11/18 History buPROPion HCL [Wellbutrin Sr] 100 mg PO DAILY 10/07/18 10/11/18 History Allergies Allergy/AdvReac Type Severity Reaction Status Date / Time bee venom protein (honey bee) Allergy Rash/Hives Verified 06/10/19 19:44 Sulfa (Sulfonamide Allergy Rash/Hives Verified 10/11/18 19:44 Antibiotics) Physical Exam Vitals: Vital Signs Temp Pulse Pulse Resp BP BP BP 10/12/18 05:00 97.5 F L 68 16 144/81 144/81 122/74 10/12/18 04:00 97.5 F L 65 15 122/74 10/12/18 03:00 64 12 137/82 10/12/18 02:00 63 12 10/12/18 00:00 98.5 F 58 L 15 139/81 10/11/18 23:00 62 15 10/11/18 21:00 75 12 138/80 10/11/18 20:10 72 14 138/80 10/11/18 20:00 62 14 10/11/18 19:30 75 16 10/11/18 19:20 98.5 F 69 17 120/81 10/11/18 18:00 62 18 142/74 10/11/18 17:42 98.5 F 97 10 L 120/81 10/11/18 17:00 78 18 140/74 10/11/18 16:00 63 18 130/69 10/11/18 15:00 58 L 18 130/69 Pulse Ox 10/12/18 05:00 97 10/12/18 04:00 98 10/12/18 03:00 97 10/12/18 02:00 99 10/12/18 00:00 99 10/11/18 23:00 10/11/18 21:00 10/11/18 20:10 10/11/18 20:00 97 10/11/18 19:30 10/11/18 19:20 97 10/11/18 18:00 98 10/11/18 17:42 10/11/18 17:00 98 10/11/18 16:00 98 10/11/18 15:00 98 Intake and Output 10/11/18 10/12/18 10/12/18 22:59 06:59 14:59 Intake Total 400 861.321 63 Output Total 2375 Balance 400 861.321 -2312 Intake: IV 400 800 63 Sodium Chloride 0.9% 1, 400 800 000 ml @ 100 mls/hr IV . Q10H [facility] Rx#:[id number] Intake, IV Titration 61.321 Amount Heparin Sod,Pork in 0.45% 61.321 NaCl 25,000 unit In 0.45 % NaCl 1 250ml.bag @ 10.3 UNITS/KG/HR 9.998 mls/hr IV .Q24H [facility] Rx#: [id number] Output: Urine 975 Estimated Blood Loss 1400 Other: Voiding Method Toilet # Voids 1 2 # Bowel Movements 1 1 Weight 98.1 kg GENERAL EXAM: Sedated, intubated, 53-year-old white male, comfortable in no apparent distress. HEAD: Normocephalic/atraumatic. EYES: Normal reaction of pupils, equal size. Conjunctiva pink, sclera white. NOSE: Clear with pink turbinates. THROAT: No erythema or exudates. NECK: No masses, no JVD, no thyroid enlargement, no adenopathy. CHEST: No chest wall deformity. Symmetrical expansion. Midsternal incision is covered with surgical dressing, clean dry and intact, 2 mediastinal and one left pleural chest tubes in place, to Pleur-evac, with tiny amount of sanguinous output in the chest tubes, no air leak. Precordial wires are in place, connected to an external pacemaker, with a backup rate, intrinsic rhythm is sinus rhythm with a rate of 73 LUNGS: Equal air entry with no crackles, wheeze, rhonchi or dullness. CVS: Regular rate and rhythm, normal S1 and S2, no gallops, no murmurs, no rubs ABDOMEN: Soft, nontender. No hepatosplenomegaly, normal bowel sounds, no guarding or rigidity. EXTREMITIES: No clubbing, no edema, no cyanosis, 2+ pulses and upper and lower extremities. Right radial graft site with the NICK drain in place, NICK drain is compressed, and draining scant amount of sanguinous output, right arm is emerson wrapped MUSCULOSKELETAL: Muscle strength and tone normal. SPINE: No scoliosis or deformity SKIN: No rashes CENTRAL NERVOUS SYSTEM: Sedated, intubated. No focal deficits, tone is normal in all 4 extremities. Results - Laboratory Findings CBC and BMP: 10/12/18 14:05 10/12/18 14:05 ABG ABG pH 7.39 (7.35-7.45) 10/12/18 14:28 ABG pCO2 44 mmHg (35-45) 10/12/18 14:28 ABG pO2 184 mmHg (83-108) H 10/12/18 14:28 ABG O2 Saturation 99.4 % (94-97) H 10/12/18 14:28 PT/INR, D-dimer PT 11.4 sec (9.0-12.0) 10/12/18 14:05 INR 1.1 (<1.2) 10/12/18 14:05 Abnormal lab findings: Abnormal Labs 10/11/18 10/11/18 10/11/18 11:53 11:53 11:53 WBC RBC Hgb 12.8 L Hct Plt Count Neutrophils # APTT 41.7 H ABG pH ABG pCO2 ABG pO2 ABG HCO3 ABG Total CO2 ABG O2 Saturation ABG Hematocrit ABG Sodium ABG Potassium ABG Ionized Calcium ABG Glucose Hemoglobin Chloride 109 H Creatinine Glucose POC Glucose (mg/dL) Magnesium Total Bilirubin 1.4 H Total Protein Albumin HDL Cholesterol 28 L Arterial Blood Potassium Arterial Blood Glucose Crossmatch 10/12/18 10/12/18 10/12/18 01:45 01:45 08:23 WBC RBC Hgb Hct Plt Count Neutrophils # APTT 36.0 H ABG pH ABG pCO2 ABG pO2 ABG HCO3 ABG Total CO2 25 H ABG O2 Saturation ABG Hematocrit ABG Sodium ABG Potassium ABG Ionized Calcium ABG Glucose Hemoglobin Chloride Creatinine Glucose POC Glucose (mg/dL) Magnesium Total Bilirubin Total Protein Albumin HDL Cholesterol Arterial Blood Potassium Arterial Blood Glucose Crossmatch See Detail 10/12/18 10/12/18 10/12/18 09:50 10:57 10:57 WBC RBC Hgb Hct Plt Count Neutrophils # APTT ABG pH 7.31 L 7.31 L ABG pCO2 49 H 48 H ABG pO2 125 H 50 L* >420 H ABG HCO3 ABG Total CO2 26 H 26 H ABG O2 Saturation 98.9 H 85.5 L 100.0 H ABG Hematocrit 30 L 30 L ABG Sodium 131 L 131 L ABG Potassium 6.0 H 5.6 H ABG Ionized Calcium 4.1 L 4.0 L ABG Glucose 130 H 219 H 217 H Hemoglobin 9.8 L 9.7 L Chloride Creatinine Glucose POC Glucose (mg/dL) Magnesium Total Bilirubin Total Protein Albumin HDL Cholesterol Arterial Blood Potassium 6.0 H 5.6 H Arterial Blood Glucose 130 H 219 H 217 H Crossmatch 10/12/18 10/12/18 10/12/18 11:28 11:56 14:05 WBC 10.7 H RBC 4.03 L Hgb 11.8 L Hct 34.2 L Plt Count 147 L Neutrophils # 9.3 H APTT ABG pH ABG pCO2 ABG pO2 407 H 412 H ABG HCO3 ABG Total CO2 26 H 27 H ABG O2 Saturation 100.0 H 100.0 H ABG Hematocrit 30 L 30 L ABG Sodium 133 L 134 L ABG Potassium 5.1 H 4.6 H ABG Ionized Calcium 4.1 L 4.2 L ABG Glucose 209 H 215 H Hemoglobin 9.6 L 9.7 L Chloride Creatinine Glucose POC Glucose (mg/dL) Magnesium Total Bilirubin Total Protein Albumin HDL Cholesterol Arterial Blood Potassium 5.1 H 4.6 H Arterial Blood Glucose 209 H 215 H Crossmatch 10/12/18 10/12/18 10/12/18 14:05 14:09 14:28 WBC RBC Hgb Hct Plt Count Neutrophils # APTT ABG pH ABG pCO2 ABG pO2 184 H ABG HCO3 27 H ABG Total CO2 28 H ABG O2 Saturation 99.4 H ABG Hematocrit ABG Sodium ABG Potassium ABG Ionized Calcium ABG Glucose Hemoglobin Chloride 108 H Creatinine 0.60 L Glucose 124 H POC Glucose (mg/dL) 121 H Magnesium 2.7 H Total Bilirubin Total Protein 5.1 L Albumin 2.8 L HDL Cholesterol Arterial Blood Potassium Arterial Blood Glucose Crossmatch - Diagnostic Findings Chest x-ray: report reviewed, image reviewed Additional studies: Postoperative blood gases, labs reviewed Assessment and Plan Plan: Assessment: #1. Coronary artery disease, left main stenosis, of 80-90% at the distal portion of the left main coronary artery, status post 2 vessel bypass grafting, with MALHOTRA to LAD, and left radial arterial graft to the obtuse marginal, postop day 0 #2. Exertional shortness of breath, positive stress test, related to the above #3. Routine postoperative ventilator management #4. Obstructive sleep apnea on home CPAP #5. History of remote tobacco dependence 30 years ago #6. Family history of coronary artery disease Plan: Postop chest x-ray, blood gases have been reviewed by Dr. Porras, necessary vent adjustments have been made, will continue weaning FiO2 per protocol, we'll proceed with spontaneous breathing trials, and extubation once the patient is awake and following commands. Hemodynamically stable, no bleeding from the chest tubes. Labs have been reviewed. We'll continue breathing treatments, incentive spirometry to the bedside, will encourage deep breathing and coughing after extubation. Pain control. Continue to closely follow. GI and DVT pro phylaxis per surgery. Daily labs, daily chest x-rays I performed a history & physical examination of the patient and discussed their management with my nurse practitioner, Beatrice Corrales. I reviewed the nurse practitioner's note and agree with the documented findings and plan of care. Lung sounds are positive for clear breath sounds. The findings and the impression was discussed with the patient. I attest to the documentation by the nurse practitioner. Time with Patient: Greater than 30
[2018-10-12 15:59] LABS: Glucose,Whole Blood 123 mg/dL (75-99)
[2018-10-12] MEDS ORDERED: IPRATROPIUM-ALBUTEROL 3 ML NEB INHALATION SCH (16:00)
[2018-10-12] MEDS: NITROGLYCERIN-D5W PMX 50 MG in DEXTROSE/WATER 1 250ML.BAG IV SCH ×2 (16:00→23:00)
[2018-10-12] MEDS: LACTATED RINGERS 1,000 ML IV SCH (16:04)
[2018-10-12] MEDS: ceFAZolin IN SWFI 2 GM/20 ML SYRINGE IVP SCH (16:05)
[2018-10-12] MEDS: DILTIAZEM 125 MG in SODIUM CHLORIDE 0.9% 100 ML IV SCH (16:05)
--- NOTE | 2018-10-12 16:23 | OP ---
OPERATIVE REPORT DATE OF SURGERY: 10/12/2018 PREOPERATIVE DIAGNOSIS: Coronary artery disease. POSTOPERATIVE DIAGNOSIS: Coronary artery disease. PROCEDURES: 1. Coronary artery bypass grafting x2 vessels (left internal mammary artery to left anterior descending artery, radial artery to obtuse marginal artery). 2. Endoscopic harvest of left radial artery. 3. Epiaortic ultrasound. 4. Transesophageal echocardiogram. SURGEON: 1. Chuck Tijerina MD. ASSISTANTS: 1. PATRICE Dickerson. 2. Jevon Fox NP. ANESTHESIA: General. SPECIMEN: None. COMPLICATIONS: None. INDICATION: The patient is a 53-year-old male with a past medical history significant for tobacco use and sleep apnea who reports exertional chest discomfort associated with shortness of breath. Workup revealed a tight left main coronary artery lesion. Coronary artery bypass was recommended. The risks, benefits and alternatives to this procedure were discussed with the patient. All his questions were answered. Consent was obtained. FINDINGS: The left internal mammary artery was a good conduit. The radial artery was a good conduit. The LAD measured 1.5 mm. The obtuse marginal artery measured 1.3 mm. PROCEDURE IN DETAIL: The patient was taken to the operating room and placed supine on the operating table. After the induction of general anesthesia, he was prepped and draped in the usual sterile fashion. Preoperative transesophageal echocardiogram revealed a preserved left ventricular ejection fraction with no significant valvular pathology. A median sternotomy was performed. The left internal mammary artery was harvested in the standard fashion, taking care to clip all branches. Intravenous heparin was administered and the vessel was transected distally revealing brisk flow. Simultaneously, radial artery was harvested from the left upper extremity using endoscopic technique. All branches were tied. Both the radial artery and mammary artery were good conduits. A pericardial cradle was created. The ascending aorta was palpated and was free of obvious calcific disease. Epi-aortic ultrasound was then performed on the ascending aorta and again revealed no evidence of calcific plaque or atheromatous disease. An arterial cannula was placed in the distal ascending aorta. A venous cannula was placed through the right atrial appendage and directed into the IVC. Both antegrade and retrograde catheters were placed as well. The patient was then placed on cardiopulmonary bypass with good decompression of the heart. The aortic crossclamp was applied. Cold blood potassium cardioplegia was delivered in both antegrade and retrograde fashion to achieve arrest of the heart. Of note, cardioplegia was delivered every 15-20 minutes while the patient remained under cross-clamp. I began by inspecting the lateral wall. The obtuse marginal artery 1 was identified and dissected free. A small arteriotomy was created. This vessel accepted a 1 mm probe. Using the radial artery, an end-to-side anastomosis was created. This was performed using running 7-0 Prolene suture. The graft was hemostatic and had great flow. The radial artery was then tacked down to the surface of the heart. Attention was then turned to the left anterior descending artery. I dissected it free and a small arteriotomy was created at its mid portion. Using the left internal mammary artery, an end-to-side anastomosis was created. This was performed running 8-0 Prolene suture. The graft was hemostatic. The mammary pedicle was then tacked down to the anterior surface of the heart. Attention was then turned to the proximal anastomosis. This was performed in end-to- side fashion using running 6-0 Prolene suture. One liter of warm blood was delivered in retrograde fashion. Both lidocaine and magnesium were administered as well. The aortic cross-clamp was removed. The graft was de-aired in the standard fashion. Distal anastomoses were inspected and appeared to be hemostatic. Temporary atrial and ventricular pacing wires were placed and brought through the skin. The patient was then weaned off cardiopulmonary bypass. He without difficulty. He did not require the use of any pressors. Follow-up transesophageal echocardiogram confirmed a good left ventricular ejection fraction and no valvular pathology. Protamine was administered. There were no adverse reactions. The remaining cannulas were removed. The mediastinum was copiously irrigated with warm saline solution. All surgical sites were again inspected and appeared to be hemostatic. Soft tissues were reapproximated over the ascending aorta as well as over the apex of the heart. Straight 32- Maori chest tubes were placed and directed into both the left pleural space and the mediastinum. These were all secured to the skin using sutures. The sternum was then reapproximated using the Nunnelly cable system. The wires were placed in a [id number] fashion. At the completion of the closure, the sternum was well aligned. The remainder of the wound was closed in layers. Sterile dressing was applied. The patient appeared to tolerate the procedure well. There were no immediate complications. He returned to the ICU in critical but stable condition. MMODL / IJN: [id number] / MTDD
[2018-10-12 17:05] LABS: Glucose,Whole Blood 149 mg/dL (75-99)
[2018-10-12] MEDS: KETOROLAC 30 MG/ML 1 ML VIAL IVP SCH (17:07)
[2018-10-12 17:08] LABS: Basophils % (A) 0 %; Eosinophils % (A) 0 %; HCT 40.8 % (39.0-53.0); HGB 13.7 gm/dL (13.0-17.5); Lymphocytes # (A) 1.6 k/uL (1.0-4.8); Lymphocytes % (A) 10 %; MCH 28.7 pg (25.0-35.0); MCHC 33.7 g/dL (31.0-37.0); MCV 85.2 fL (80.0-100.0); Mean Platelet Volume 7.9; Monocytes # (A) 0.8 k/uL (0-1.0); Monocytes % (A) 5 %; Neutrophils # (A) 14.1 k/uL (1.3-7.7); Neutrophils % (A) 84 %; Platelet Count 219 k/uL (150-450); RBC 4.78 m/uL (4.30-5.90); RDW 14.3 % (11.5-15.5); WBC 16.7 k/uL (3.8-10.6)
[2018-10-12] MEDS: ACETAMINOPHEN IV (For NPO) 1,000 MG in EMPTY BAG 1 BAG IVPB SCH (17:08)
--- NOTE | 2018-10-12 17:35 | P.HPIM ---
History of Present Illness 53-year-old male came with complaints of chest tightness burning sensation found to have significant occlusion of LAD cardio thoracic surgery evaluate the patient patient underwent a coronary bypass grafting patient is EF of 60-60% p atient is presently intubated plan is to extubate the patient today patient has a too many asked in left pleural chest use which is still draining and the patient is on the assist-control ventilation with set up respiratory to follow patient is breathing over the ventilator set up volume of 600 FiO2 of's 50% now people 5. Patient is a nitroglycerin drip lactated Ringer's, daily pain and drape, propofol which is off now. Patient has a Brady-Alejandro in place . Review of Systems Unable to obtain Past Medical History Past Medical History: Chest Pain / Angina, Sleep Apnea/CPAP/BIPAP Additional Past Medical History / Comment(s): chest discomfort & burning w/exertion, pt had sleep study and was given an appliance in 2016. does not wear cpap History of Any Multi-Drug Resistant Organisms: None Reported Past Surgical History: Hernia Repair Past Anesthesia/Blood Transfusion Reactions: No Reported Reaction Past Psychological History: No Psychological Hx Reported Smoking Status: Former smoker Past Alcohol Use History: Rare Additional Past Alcohol Use History / Comment(s): quit smoking >30 yrs. ago, smoked <ppd for 15 yrs. Past Drug Use History: None Reported - Past Family History Father Family Medical History: Myocardial Infarction ([place]) Additional Family Medical History / Comment(s): Cardiac stenting and 62 years old. Also maternal grandfather of massive myocardial infarction Medications and Allergies Home Medications Medication Instructions Recorded Confirmed Type Aspirin 81 mg PO DAILY 10/07/18 10/11/18 History Atorvastatin [Lipitor] 80 mg PO DAILY 10/07/18 10/11/18 History Dutasteride 0.5 mg PO DAILY 10/07/18 10/11/18 History Isosorbide Mononitrate [Isosorbide 30 mg PO DAILY 10/07/18 10/11/18 History Mononitrate ER] Metoprolol Tartrate [Lopressor] 12.5 mg PO BID 10/07/18 10/11/18 History buPROPion HCL [Wellbutrin Sr] 100 mg PO DAILY 10/07/18 10/11/18 History Allergies Allergy/AdvReac Type Severity Reaction Status Date / Time bee venom protein (honey bee) Allergy Rash/Hives Verified 10/11/18 19:44 Sulfa (Sulfonamide Allergy Rash/Hives Verified 10/11/18 19:44 Antibiotics) Physical Exam Vitals: Vital Signs Temp Pulse Pulse Resp BP BP BP 10/12/18 16:09 88 10/12/18 15:52 86 10/12/18 15:00 76 19 10/12/18 14:45 71 12 10/12/18 14:30 68 11 L 10/12/18 14:15 68 10 L 10/12/18 05:00 97.5 F L 68 16 144/81 144/81 122/74 10/12/18 04:00 97.5 F L 65 15 122/74 10/12/18 03:00 64 12 137/82 10/12/18 02:00 63 12 10/12/18 00:00 98.5 F 58 L 15 139/81 10/11/18 23:00 62 15 10/11/18 21:00 75 12 138/80 10/11/18 20:10 72 14 138/80 10/11/18 20:00 62 14 10/11/18 19:30 75 16 10/11/18 19:20 98.5 F 69 17 120/81 10/11/18 18:00 62 18 142/74 10/11/18 17:42 98.5 F 97 10 L 120/81 Pulse Ox 10/12/18 16:09 10/12/18 15:52 10/12/18 15:00 100 10/12/18 14:45 99 10/12/18 14:30 100 10/12/18 14:15 100 10/12/18 05:00 97 10/12/18 04:00 98 10/12/18 03:00 97 10/12/18 02:00 99 10/12/18 00:00 99 10/11/18 23:00 10/11/18 21:00 10/11/18 20:10 10/11/18 20:00 97 10/11/18 19:30 10/11/18 19:20 97 10/11/18 18:00 98 10/11/18 17:42 Intake and Output 10/12/18 10/12/18 10/12/18 06:59 14:59 22:59 Intake Total 861.321 102 78 Output Total 2580 841 Balance 861.321 -2478 -763 Intake: IV 800 102 78 CO/CI 20 40 Diltiazem 125 mg In 5 10 Sodium Chloride 0.9% 100 ml @ 5 MG/HR 5 mls/hr IV .Q24H [facility] Rx#:[id number] Nitroglycerin-D5w Pmx 50 5 10 mg In Dextrose/Water 1 250ml.bag @ 5 MCG/MIN 1.5 mls/hr IV .Q24H [facility] Rx#: [id number] Pressure Bag 9 18 Sodium Chloride 0.9% 1, 800 000 ml @ 100 mls/hr IV . Q10H [facility] Rx#:[id number] Intake, IV Titration 61.321 Amount Heparin Sod,Pork in 0.45% 61.321 NaCl 25,000 unit In 0.45 % NaCl 1 250ml.bag @ 10.3 UNITS/KG/HR 9.998 mls/hr IV .Q24H [facility] Rx#: [id number] Output: Chest Tube Drainage 5 21 Chest Tube Left Pleural 0 0 Chest Tube Mediastinal 5 21 Urine 1175 820 Estimated Blood Loss 1400 Other: Voiding Method Toilet # Voids 2 # Bowel Movements 1 Weight 98.1 kg ABP, PAP, CO, CI - Last 8 Hours Arterial Blood Pressure 137/77 Arterial Blood Pressure 139/80 Arterial Blood Pressure 129/73 Arterial Blood Pressure 134/66 Pulmonary Artery Pressure 35/25 Pulmonary Artery Pressure 33/21 Pulmonary Artery Pressure 30/18 Pulmonary Artery Pressure 29/17 Cardiac Output 5.4 Cardiac Output 5 Cardiac Index 2.5 Cardiac Index 2.3 PHYSICAL EXAMINATION: GENERAL: She is intubated coming out of sedation arousable. In assist control ventilation as mentioned above HEENT: Pupils are round and equally reacting to light. EOMI. No scleral icterus. No conjunctival pallor. Normocephalic, atraumatic. No pharyngeal erythema. No thyromegaly. CARDIOVASCULAR: S1 and S2 present. No murmurs, rubs, or gallops. PULMONARY: Chest is clear to auscultation, no wheezing or crackles. Shouldn't has chest tubes as mentioned above ABDOMEN: Soft, nontender, nondistended, normoactive bowel sounds. No palpable organomegaly. MUSCULOSKELETAL: No joint swelling or deformity. EXTREMITIES: No cyanosis, clubbing, or pedal edema. NEUROLOGICAL: Unable to assess SKIN: No rashes. Results CBC & Chem 7: 10/12/18 17:00 10/12/18 14:05 Labs: Abnormal Lab Results - Last 24 Hours (Table) 10/12/18 10/12/18 10/12/18 Range/Units 01:45 01:45 08:23 WBC (3.8-10.6) k/uL RBC (4.30-5.90) m/uL Hgb (13.0-17.5) gm/dL Hct (39.0-53.0) % Plt Count (150-450) k/uL Neutrophils # (1.3-7.7) k/uL APTT 36.0 H (22.0-30.0) sec ABG pH (7.35-7.45) ABG pCO2 (35-45) mmHg ABG pO2 (83-108) mmHg ABG HCO3 (21-25) mmol/L ABG Total CO2 25 H (19-24) mmol/L ABG O2 Saturation (94-97) % ABG Hematocrit (34.0-46.0) % ABG Sodium (135-146) mmol/L ABG Potassium (3.4-4.5) mmol/L ABG Ionized Calcium (4.5-5.3) mg/dL ABG Glucose (75-99) mg/dL Hemoglobin (13.0-17.5) gm/dL Chloride (98-107) mmol/L Creatinine (0.66-1.25) mg/dL Glucose (74-99) mg/dL POC Glucose (mg/dL) (75-99) mg/dL Magnesium (1.6-2.3) mg/dL Total Protein (6.3-8.2) g/dL Albumin (3.5-5.0) g/dL Arterial Blood Potassium (3.4-4.5) mmol/L Arterial Blood Glucose (75-99) mg/dL Crossmatch See Detail 10/12/18 10/12/18 10/12/18 Range/Units 09:50 10:57 10:57 WBC (3.8-10.6) k/uL RBC (4.30-5.90) m/uL Hgb (13.0-17.5) gm/dL Hct (39.0-53.0) % Plt Count (150-450) k/uL Neutrophils # (1.3-7.7) k/uL APTT (22.0-30.0) sec ABG pH 7.31 L 7.31 L (7.35-7.45) ABG pCO2 49 H 48 H (35-45) mmHg ABG pO2 125 H 50 L* >420 H (83-108) mmHg ABG HCO3 (21-25) mmol/L ABG Total CO2 26 H 26 H (19-24) mmol/L ABG O2 Saturation 98.9 H 85.5 L 100.0 H (94-97) % ABG Hematocrit 30 L 30 L (34.0-46.0) % ABG Sodium 131 L 131 L (135-146) mmol/L ABG Potassium 6.0 H 5.6 H (3.4-4.5) mmol/L ABG Ionized Calcium 4.1 L 4.0 L (4.5-5.3) mg/dL ABG Glucose 130 H 219 H 217 H (75-99) mg/dL Hemoglobin 9.8 L 9.7 L (13.0-17.5) gm/dL Chloride (98-107) mmol/L Creatinine (0.66-1.25) mg/dL Glucose (74-99) mg/dL POC Glucose (mg/dL) (75-99) mg/dL Magnesium (1.6-2.3) mg/dL Total Protein (6.3-8.2) g/dL Albumin (3.5-5.0) g/dL Arterial Blood Potassium 6.0 H 5.6 H (3.4-4.5) mmol/L Arterial Blood Glucose 130 H 219 H 217 H (75-99) mg/dL Crossmatch 10/12/18 10/12/18 10/12/18 Range/Units 11:28 11:56 14:05 WBC 10.7 H (3.8-10.6) k/uL RBC 4.03 L (4.30-5.90) m/uL Hgb 11.8 L (13.0-17.5) gm/dL Hct 34.2 L (39.0-53.0) % Plt Count 147 L (150-450) k/uL Neutrophils # 9.3 H (1.3-7.7) k/uL APTT (22.0-30.0) sec ABG pH (7.35-7.45) ABG pCO2 (35-45) mmHg ABG pO2 407 H 412 H (83-108) mmHg ABG HCO3 (21-25) mmol/L ABG Total CO2 26 H 27 H (19-24) mmol/L ABG O2 Saturation 100.0 H 100.0 H (94-97) % ABG Hematocrit 30 L 30 L (34.0-46.0) % ABG Sodium 133 L 134 L (135-146) mmol/L ABG Potassium 5.1 H 4.6 H (3.4-4.5) mmol/L ABG Ionized Calcium 4.1 L 4.2 L (4.5-5.3) mg/dL ABG Glucose 209 H 215 H (75-99) mg/dL Hemoglobin 9.6 L 9.7 L (13.0-17.5) gm/dL Chloride (98-107) mmol/L Creatinine (0.66-1.25) mg/dL Glucose (74-99) mg/dL POC Glucose (mg/dL) (75-99) mg/dL Magnesium (1.6-2.3) mg/dL Total Protein (6.3-8.2) g/dL Albumin (3.5-5.0) g/dL Arterial Blood Potassium 5.1 H 4.6 H (3.4-4.5) mmol/L Arterial Blood Glucose 209 H 215 H (75-99) mg/dL Crossmatch 10/12/18 10/12/18 10/12/18 Range/Units 14:05 14:09 14:28 WBC (3.8-10.6) k/uL RBC (4.30-5.90) m/uL Hgb (13.0-17.5) gm/dL Hct (39.0-53.0) % Plt Count (150-450) k/uL Neutrophils # (1.3-7.7) k/uL APTT (22.0-30.0) sec ABG pH (7.35-7.45) ABG pCO2 (35-45) mmHg ABG pO2 184 H (83-108) mmHg ABG HCO3 27 H (21-25) mmol/L ABG Total CO2 28 H (19-24) mmol/L ABG O2 Saturation 99.4 H (94-97) % ABG Hematocrit (34.0-46.0) % ABG Sodium (135-146) mmol/L ABG Potassium (3.4-4.5) mmol/L ABG Ionized Calcium (4.5-5.3) mg/dL ABG Glucose (75-99) mg/dL Hemoglobin (13.0-17.5) gm/dL Chloride 108 H (98-107) mmol/L Creatinine 0.60 L (0.66-1.25) mg/dL Glucose 124 H (74-99) mg/dL POC Glucose (mg/dL) 121 H (75-99) mg/dL Magnesium 2.7 H (1.6-2.3) mg/dL Total Protein 5.1 L (6.3-8.2) g/dL Albumin 2.8 L (3.5-5.0) g/dL Arterial Blood Potassium (3.4-4.5) mmol/L Arterial Blood Glucose (75-99) mg/dL Crossmatch 10/12/18 10/12/18 10/12/18 Range/Units 15:01 15:55 17:00 WBC 16.7 H (3.8-10.6) k/uL RBC (4.30-5.90) m/uL Hgb (13.0-17.5) gm/dL Hct (39.0-53.0) % Plt Count (150-450) k/uL Neutrophils # 14.1 H (1.3-7.7) k/uL APTT (22.0-30.0) sec ABG pH (7.35-7.45) ABG pCO2 (35-45) mmHg ABG pO2 (83-108) mmHg ABG HCO3 (21-25) mmol/L ABG Total CO2 (19-24) mmol/L ABG O2 Saturation (94-97) % ABG Hematocrit (34.0-46.0) % ABG Sodium (135-146) mmol/L ABG Potassium (3.4-4.5) mmol/L ABG Ionized Calcium (4.5-5.3) mg/dL ABG Glucose (75-99) mg/dL Hemoglobin (13.0-17.5) gm/dL Chloride (98-107) mmol/L Creatinine (0.66-1.25) mg/dL Glucose (74-99) mg/dL POC Glucose (mg/dL) 110 H 123 H (75-99) mg/dL Magnesium (1.6-2.3) mg/dL Total Protein (6.3-8.2) g/dL Albumin (3.5-5.0) g/dL Arterial Blood Potassium (3.4-4.5) mmol/L Arterial Blood Glucose (75-99) mg/dL Crossmatch 10/12/18 Range/Units 17:02 WBC (3.8-10.6) k/uL RBC (4.30-5.90) m/uL Hgb (13.0-17.5) gm/dL Hct (39.0-53.0) % Plt Count (150-450) k/uL Neutrophils # (1.3-7.7) k/uL APTT (22.0-30.0) sec ABG pH (7.35-7.45) ABG pCO2 (35-45) mmHg ABG pO2 (83-108) mmHg ABG HCO3 (21-25) mmol/L ABG Total CO2 (19-24) mmol/L ABG O2 Saturation (94-97) % ABG Hematocrit (34.0-46.0) % ABG Sodium (135-146) mmol/L ABG Potassium (3.4-4.5) mmol/L ABG Ionized Calcium (4.5-5.3) mg/dL ABG Glucose (75-99) mg/dL Hemoglobin (13.0-17.5) gm/dL Chloride (98-107) mmol/L Creatinine (0.66-1.25) mg/dL Glucose (74-99) mg/dL POC Glucose (mg/dL) 149 H (75-99) mg/dL Magnesium (1.6-2.3) mg/dL Total Protein (6.3-8.2) g/dL Albumin (3.5-5.0) g/dL Arterial Blood Potassium (3.4-4.5) mmol/L Arterial Blood Glucose (75-99) mg/dL Crossmatch Microbiology - Last 24 Hours (Table) 10/11/18 12:20 Nasal Screen MRSA/MSSA - Preliminary Nasal Swab 10/11/18 12:20 Urine Culture - Preliminary Urine,Clean Catch Thrombosis Risk Factor Assmnt - Choose All That Apply Each Factor Represents 1 point: Age 41-60 years, Obesity (BMI >25) Other Risk Factors: Yes Each Risk Factor Represents 2 Points: Major surgery Other congenital or acquired thrombophilia - If yes, enter type in comment: No Thrombosis Risk Factor Assessment Total Risk Factor Score: 4 Thrombosis Risk Factor Assessment Level: Moderate Risk Assessment and Plan Plan: -Unstable angina coronary artery disease with left main stenosis status post bypass grafting patient is on above-mentioned drips and chest use -Postoperative respiratory failure question will be extubated later today off sedation. -Obstructive sleep apnea -Nicotine dependence Plan is continue with present management
[2018-10-12 18:00] LABS: Glucose,Whole Blood 149 mg/dL (75-99)
[2018-10-12 19:06] LABS: Glucose,Whole Blood 146 mg/dL (75-99)
[2018-10-12] MEDS: IPRATROPIUM-ALBUTEROL 3 ML NEB INHALATION SCH ×2 (19:38→19:51)
[2018-10-12 20:02] LABS: Glucose,Whole Blood 139 mg/dL (75-99)
[2018-10-12 20:06] LABS: Basophils % (A) 0 %; Eosinophils % (A) 0 %; HCT 39.6 % (39.0-53.0); HGB 13.3 gm/dL (13.0-17.5); Lymphocytes # (A) 0.7 k/uL (1.0-4.8); Lymphocytes % (A) 6 %; MCH 28.9 pg (25.0-35.0); MCHC 33.7 g/dL (31.0-37.0); MCV 85.6 fL (80.0-100.0); Mean Platelet Volume 7.8; Monocytes # (A) 0.4 k/uL (0-1.0); Monocytes % (A) 3 %; Neutrophils # (A) 11.7 k/uL (1.3-7.7); Neutrophils % (A) 91 %; Platelet Count 191 k/uL (150-450); RBC 4.62 m/uL (4.30-5.90); WBC 12.9 k/uL (3.8-10.6)
[2018-10-12] MEDS: MUPIROCIN 2% OINT 22 GM TUBE NASAL SCH (20:35)
[2018-10-12] MEDS: METOPROLOL TARTRATE 12.5 MG TAB PO SCH (20:35)
[2018-10-12 20:50] LABS: Glucose,Whole Blood 135 mg/dL (75-99)
[2018-10-12 22:21] LABS: Glucose,Whole Blood 112 mg/dL (75-99)
[2018-10-12 22:54] LABS: Glucose,Whole Blood 133 mg/dL (75-99)
[2018-10-13] MEDS: ACETAMINOPHEN IV (For NPO) 1,000 MG in EMPTY BAG 1 BAG IVPB SCH (00:07)
[2018-10-13] MEDS: ceFAZolin IN SWFI 2 GM/20 ML SYRINGE IVP SCH ×2 (00:08→09:34)
[2018-10-13] MEDS: HEPARIN SODIUM,PORCINE 5,000 UNIT/ML 1 ML VIAL SQ SCH ×4 (00:09→23:13)
[2018-10-13] MEDS: KETOROLAC 30 MG/ML 1 ML VIAL IVP SCH ×5 (00:09→23:13)
[2018-10-13 00:30] LABS: Glucose,Whole Blood 136 mg/dL (75-99)
[2018-10-13 01:13] LABS: Glucose,Whole Blood 147 mg/dL (75-99)
[2018-10-13] MEDS ORDERED: HYDROcodone/APAP 5-325MG 1 EACH TAB PO PRN (01:20)
[2018-10-13 02:08] LABS: Glucose,Whole Blood 139 mg/dL (75-99)
[2018-10-13 04:15] LABS: Glucose,Whole Blood 142 mg/dL (75-99)
[2018-10-13] MEDS: HYDROcodone/APAP 5-325MG 1 EACH TAB PO PRN ×3 (04:23→18:01)
[2018-10-13 04:32] LABS: Basophils % (A) 0 %; Eosinophils % (A) 0 %; HCT 37.4 % (39.0-53.0); HGB 12.3 gm/dL (13.0-17.5); Lymphocytes # (A) 0.9 k/uL (1.0-4.8); Lymphocytes % (A) 7 %; MCH 28.4 pg (25.0-35.0); MCHC 32.9 g/dL (31.0-37.0); MCV 86.4 fL (80.0-100.0); Mean Platelet Volume 7.3; Monocytes # (A) 0.5 k/uL (0-1.0); Monocytes % (A) 4 %; Neutrophils # (A) 11.7 k/uL (1.3-7.7); Neutrophils % (A) 88 %; Platelet Count 205 k/uL (150-450); RBC 4.33 m/uL (4.30-5.90); RDW 13.5 % (11.5-15.5); WBC 13.3 k/uL (3.8-10.6)
[2018-10-13 04:35] LABS: Ionized Calcium 4.7 mg/dL (4.5-5.3)
[2018-10-13 04:44] LABS: ALT 28 U/L (21-72); AST 47 U/L (17-59); African American GFR (CKD) >90 (>60 ml/min/1.73 sqM); Albumin 3.3 g/dL (3.5-5.0); Alkaline Phosphatase 50 U/L (38-126); Anion Gap 7 mmol/L; Blood Urea Nitrogen 12 mg/dL (9-20); Calcium 8.2 mg/dL (8.4-10.2); Carbon Dioxide 25 mmol/L (22-30); Chloride 103 mmol/L (98-107); Glucose 132 mg/dL (74-99); Magnesium 2.1 mg/dL (1.6-2.3); Potassium 4.1 mmol/L (3.5-5.1); Sodium 135 mmol/L (137-145); Total Bilirubin 1.4 mg/dL (0.2-1.3); Total Protein 5.7 g/dL (6.3-8.2)
[2018-10-13] MEDS: ALBUMIN HUMAN 5% 250 ML in EMPTY BAG 1 BAG IVPB PRN ×3 (05:32→10:42)
[2018-10-13 06:33] LABS: Glucose,Whole Blood 147 mg/dL (75-99)
[2018-10-13] MEDS: DILTIAZEM 125 MG in SODIUM CHLORIDE 0.9% 100 ML IV SCH (06:52)
[2018-10-13 07:12] LABS: Glucose,Whole Blood 147 mg/dL (75-99)
[2018-10-13] MEDS ORDERED: ACETAMINOPHEN TAB 500 MG TAB PO PRN (07:15)
--- NOTE | 2018-10-13 08:05 | P.PN ---
Subjective Progress Note Date: 10/13/18 Principal diagnosis: Coronary artery disease with left main disease. History of obstructive sleep apnea with CPAP use, remote tobacco dependence with preoperative FEV1 70% of predicted, family history of significant coronary artery disease. POD#1 urgent coronary artery bypass grafting 2 vessels, left internal mammary artery to the left anterior descending artery, radial artery to the obtuse marginal artery, endoscopic harvesting of the left radial artery, epi-aortic ultrasound, intraoperative transesophageal echocardiogram. The patient is currently sitting up in the recliner in no acute distress in the intensive care unit. He was successfully extubated last night at 18:53. Remains in normal sinus rhythm. Hemodynamically stable on IV Cardizem for radial artery spasm and IV nitro. Actively using his incentive spirometry. States pain is well controlled on current medication regimen. Denies shortness of breath. No new complaints. Objective - Vital Signs Vital signs: Vital Signs Temp 98.8 F 10/13/18 04:00 Pulse 80 10/13/18 07:30 Resp 15 10/13/18 07:30 BP 81/55 10/13/18 07:30 Pulse Ox 94 L 10/13/18 07:30 Intake & Output 10/12/18 10/13/18 10/13/18 18:59 06:59 18:59 Intake Total 616.456 6913.505 69 Output Total 3753 876 15 Balance -3342.054 636.505 54 Weight 100.5 kg Intake: IV 408 1418 69 Albumin Human 5% 250 ml 500 In Empty Bag 1 bag @ 250 mls/hr IVPB Q1HR PRN Rx#: [id number] CO/CI 100 90 Diltiazem 125 mg In 25 60 5 Sodium Chloride 0.9% 100 ml @ 5 MG/HR 5 mls/hr IV .Q24H [facility] Rx#:[id number] Lactated Ringers 1,000 ml 150 600 50 @ 20 mls/hr IV .Q24H [facility] Rx#:[id number] Nitroglycerin-D5w Pmx 50 25 60 5 mg In Dextrose/Water 1 250ml.bag @ 5 MCG/MIN 1.5 mls/hr IV .Q24H [facility] Rx#: [id number] Pressure Bag 45 108 9 Intake, IV Titration 2.946 94.505 Amount Diltiazem 125 mg In 73.917 Sodium Chloride 0.9% 100 ml @ 5 MG/HR 5 mls/hr IV .Q24H [facility] Rx#:[id number] Insulin Regular 100 unit 2.946 20.588 In Sodium Chloride 0.9% 100 ml @ Per Protocol IV .Q0M [facility] Rx#:[id number] Output: Chest Tube Drainage 68 296 Chest Tube Left Pleural 8 98 Chest Tube Mediastinal 60 198 Drainage 10 Left Wrist 10 Urine 2285 580 5 Estimated Blood Loss 1400 Other: Voiding Method Indwelling Catheter Indwelling Catheter ABP, PAP, CO, CI - Last Documented Arterial Blood Pressure 109/61 Pulmonary Artery Pressure 29/12 Cardiac Output 4.6 Cardiac Index 2.1 - Constitutional General appearance: Present: cooperative, no acute distress, obese - Respiratory Details: Lungs sounds diminished bilaterally. Respirations even, nonlabored. Currently on 4 L nasal cannula with oxygen saturation 94%. Able to achieve 1000 mL on his incentive spirometry. Strong cough. Mediastinal chest tube to continuous wall suction, 150 mL serosanguineous drainage overnight, 250 mL since surgery. Left pleural chest tube to continuous wall suction, 65 mL serosanguineous drainage overnight, 100 mL since surgery. No air leaks present. - Cardiovascular Details: S1, S2 present. Regular rate and rhythm, sinus rhythm on telemetry. Sternum stable. A/V epicardial pacemaker wires present, connected to generator, DDD mode with backup rate 50 bpm. Palpable peripheral pulses bilaterally. No edema present. No calf pain or tenderness noted. Right internal jugular Louise/Cordis, right radial arterial line present. Last CO/CI 4.6/2.1 on no inotropes or pressors. Heart hugger in place with patient demonstrating appropriate use. Antiembolism stockings, SCDs present. - Gastrointestinal Gastrointestinal Comment(s): Abdomen soft, nontender, nondistended. Hypoactive bowel sounds present 4 quadrants. Tolerating clear liquids. Positive belching, positive flatus. - Genitourinary Genitourinary Comment(s): Castelan present draining clear, yellow urine. Output was 35-70 mL/h overnight, down to 25 mL/h this morning. - Integumentary Integumentary Comment(s): Skin is warm and dry with evidence of good perfusion. Anterior chest incision well approximated and covered with dry intact dressing. Left radial artery harvest site well approximated, NICK drain present with minimal serosanguineous drainage. Patient has full mobility in his left hand, good cap refill, no numbness or tingling. - Neurologic Neurologic: Present: CNII-XII intact - Musculoskeletal Musculoskeletal: Present: gait normal, strength equal bilaterally - Psychiatric Psychiatric: Present: A&O x's 3, appropriate affect, intact judgment & insight - Allied health notes Allied health notes reviewed: nursing - Labs CBC & Chem 7: 10/13/18 04:03 10/13/18 04:03 Labs: Abnormal Lab Results - Last 24 Hours (Table) 10/12/18 10/12/18 10/12/18 Range/Units 01:45 08:23 09:50 WBC (3.8-10.6) k/uL RBC (4.30-5.90) m/uL Hgb (13.0-17.5) gm/dL Hct (39.0-53.0) % Plt Count (150-450) k/uL Neutrophils # (1.3-7.7) k/uL Lymphocytes # (1.0-4.8) k/uL ABG pH 7.31 L (7.35-7.45) ABG pCO2 49 H (35-45) mmHg ABG pO2 125 H (83-108) mmHg ABG HCO3 (21-25) mmol/L ABG Total CO2 25 H 26 H (19-24) mmol/L ABG O2 Saturation 98.9 H (94-97) % ABG Hematocrit (34.0-46.0) % ABG Sodium (135-146) mmol/L ABG Potassium (3.4-4.5) mmol/L ABG Ionized Calcium (4.5-5.3) mg/dL ABG Glucose 130 H (75-99) mg/dL Hemoglobin (13.0-17.5) gm/dL Sodium (137-145) mmol/L Chloride (98-107) mmol/L Creatinine (0.66-1.25) mg/dL Glucose (74-99) mg/dL POC Glucose (mg/dL) (75-99) mg/dL Calcium (8.4-10.2) mg/dL Magnesium (1.6-2.3) mg/dL Total Bilirubin (0.2-1.3) mg/dL Total Protein (6.3-8.2) g/dL Albumin (3.5-5.0) g/dL Arterial Blood Potassium (3.4-4.5) mmol/L Arterial Blood Glucose 130 H (75-99) mg/dL Crossmatch See Detail 10/12/18 10/12/18 10/12/18 Range/Units 10:57 10:57 11:28 WBC (3.8-10.6) k/uL RBC (4.30-5.90) m/uL Hgb (13.0-17.5) gm/dL Hct (39.0-53.0) % Plt Count (150-450) k/uL Neutrophils # (1.3-7.7) k/uL Lymphocytes # (1.0-4.8) k/uL ABG pH 7.31 L (7.35-7.45) ABG pCO2 48 H (35-45) mmHg ABG pO2 50 L* >420 H 407 H (83-108) mmHg ABG HCO3 (21-25) mmol/L ABG Total CO2 26 H 26 H (19-24) mmol/L ABG O2 Saturation 85.5 L 100.0 H 100.0 H (94-97) % ABG Hematocrit 30 L 30 L 30 L (34.0-46.0) % ABG Sodium 131 L 131 L 133 L (135-146) mmol/L ABG Potassium 6.0 H 5.6 H 5.1 H (3.4-4.5) mmol/L ABG Ionized Calcium 4.1 L 4.0 L 4.1 L (4.5-5.3) mg/dL ABG Glucose 219 H 217 H 209 H (75-99) mg/dL Hemoglobin 9.8 L 9.7 L 9.6 L (13.0-17.5) gm/dL Sodium (137-145) mmol/L Chloride (98-107) mmol/L Creatinine (0.66-1.25) mg/dL Glucose (74-99) mg/dL POC Glucose (mg/dL) (75-99) mg/dL Calcium (8.4-10.2) mg/dL Magnesium (1.6-2.3) mg/dL Total Bilirubin (0.2-1.3) mg/dL Total Protein (6.3-8.2) g/dL Albumin (3.5-5.0) g/dL Arterial Blood Potassium 6.0 H 5.6 H 5.1 H (3.4-4.5) mmol/L Arterial Blood Glucose 219 H 217 H 209 H (75-99) mg/dL Crossmatch 10/12/18 10/12/18 10/12/18 Range/Units 11:56 14:05 14:05 WBC 10.7 H (3.8-10.6) k/uL RBC 4.03 L (4.30-5.90) m/uL Hgb 11.8 L (13.0-17.5) gm/dL Hct 34.2 L (39.0-53.0) % Plt Count 147 L (150-450) k/uL Neutrophils # 9.3 H (1.3-7.7) k/uL Lymphocytes # (1.0-4.8) k/uL ABG pH (7.35-7.45) ABG pCO2 (35-45) mmHg ABG pO2 412 H (83-108) mmHg ABG HCO3 (21-25) mmol/L ABG Total CO2 27 H (19-24) mmol/L ABG O2 Saturation 100.0 H (94-97) % ABG Hematocrit 30 L (34.0-46.0) % ABG Sodium 134 L (135-146) mmol/L ABG Potassium 4.6 H (3.4-4.5) mmol/L ABG Ionized Calcium 4.2 L (4.5-5.3) mg/dL ABG Glucose 215 H (75-99) mg/dL Hemoglobin 9.7 L (13.0-17.5) gm/dL Sodium (137-145) mmol/L Chloride 108 H (98-107) mmol/L Creatinine 0.60 L (0.66-1.25) mg/dL Glucose 124 H (74-99) mg/dL POC Glucose (mg/dL) (75-99) mg/dL Calcium (8.4-10.2) mg/dL Magnesium 2.7 H (1.6-2.3) mg/dL Total Bilirubin (0.2-1.3) mg/dL Total Protein 5.1 L (6.3-8.2) g/dL Albumin 2.8 L (3.5-5.0) g/dL Arterial Blood Potassium 4.6 H (3.4-4.5) mmol/L Arterial Blood Glucose 215 H (75-99) mg/dL Crossmatch 10/12/18 10/12/18 10/12/18 Range/Units 14:09 14:28 15:01 WBC (3.8-10.6) k/uL RBC (4.30-5.90) m/uL Hgb (13.0-17.5) gm/dL Hct (39.0-53.0) % Plt Count (150-450) k/uL Neutrophils # (1.3-7.7) k/uL Lymphocytes # (1.0-4.8) k/uL ABG pH (7.35-7.45) ABG pCO2 (35-45) mmHg ABG pO2 184 H (83-108) mmHg ABG HCO3 27 H (21-25) mmol/L ABG Total CO2 28 H (19-24) mmol/L ABG O2 Saturation 99.4 H (94-97) % ABG Hematocrit (34.0-46.0) % ABG Sodium (135-146) mmol/L ABG Potassium (3.4-4.5) mmol/L ABG Ionized Calcium (4.5-5.3) mg/dL ABG Glucose (75-99) mg/dL Hemoglobin (13.0-17.5) gm/dL Sodium (137-145) mmol/L Chloride (98-107) mmol/L Creatinine (0.66-1.25) mg/dL Glucose (74-99) mg/dL POC Glucose (mg/dL) 121 H 110 H (75-99) mg/dL Calcium (8.4-10.2) mg/dL Magnesium (1.6-2.3) mg/dL Total Bilirubin (0.2-1.3) mg/dL Total Protein (6.3-8.2) g/dL Albumin (3.5-5.0) g/dL Arterial Blood Potassium (3.4-4.5) mmol/L Arterial Blood Glucose (75-99) mg/dL Crossmatch 10/12/18 10/12/18 10/12/18 Range/Units 15:55 17:00 17:02 WBC 16.7 H (3.8-10.6) k/uL RBC (4.30-5.90) m/uL Hgb (13.0-17.5) gm/dL Hct (39.0-53.0) % Plt Count (150-450) k/uL Neutrophils # 14.1 H (1.3-7.7) k/uL Lymphocytes # (1.0-4.8) k/uL ABG pH (7.35-7.45) ABG pCO2 (35-45) mmHg ABG pO2 (83-108) mmHg ABG HCO3 (21-25) mmol/L ABG Total CO2 (19-24) mmol/L ABG O2 Saturation (94-97) % ABG Hematocrit (34.0-46.0) % ABG Sodium (135-146) mmol/L ABG Potassium (3.4-4.5) mmol/L ABG Ionized Calcium (4.5-5.3) mg/dL ABG Glucose (75-99) mg/dL Hemoglobin (13.0-17.5) gm/dL Sodium (137-145) mmol/L Chloride (98-107) mmol/L Creatinine (0.66-1.25) mg/dL Glucose (74-99) mg/dL POC Glucose (mg/dL) 123 H 149 H (75-99) mg/dL Calcium (8.4-10.2) mg/dL Magnesium (1.6-2.3) mg/dL Total Bilirubin (0.2-1.3) mg/dL Total Protein (6.3-8.2) g/dL Albumin (3.5-5.0) g/dL Arterial Blood Potassium (3.4-4.5) mmol/L Arterial Blood Glucose (75-99) mg/dL Crossmatch 10/12/18 10/12/18 10/12/18 Range/Units 17:58 18:59 19:59 WBC (3.8-10.6) k/uL RBC (4.30-5.90) m/uL Hgb (13.0-17.5) gm/dL Hct (39.0-53.0) % Plt Count (150-450) k/uL Neutrophils # (1.3-7.7) k/uL Lymphocytes # (1.0-4.8) k/uL ABG pH (7.35-7.45) ABG pCO2 (35-45) mmHg ABG pO2 (83-108) mmHg ABG HCO3 (21-25) mmol/L ABG Total CO2 (19-24) mmol/L ABG O2 Saturation (94-97) % ABG Hematocrit (34.0-46.0) % ABG Sodium (135-146) mmol/L ABG Potassium (3.4-4.5) mmol/L ABG Ionized Calcium (4.5-5.3) mg/dL ABG Glucose (75-99) mg/dL Hemoglobin (13.0-17.5) gm/dL Sodium (137-145) mmol/L Chloride (98-107) mmol/L Creatinine (0.66-1.25) mg/dL Glucose (74-99) mg/dL POC Glucose (mg/dL) 149 H 146 H 139 H (75-99) mg/dL Calcium (8.4-10.2) mg/dL Magnesium (1.6-2.3) mg/dL Total Bilirubin (0.2-1.3) mg/dL Total Protein (6.3-8.2) g/dL Albumin (3.5-5.0) g/dL Arterial Blood Potassium (3.4-4.5) mmol/L Arterial Blood Glucose (75-99) mg/dL Crossmatch 10/12/18 10/12/18 10/12/18 Range/Units 20:00 20:47 21:57 WBC 12.9 H (3.8-10.6) k/uL RBC (4.30-5.90) m/uL Hgb (13.0-17.5) gm/dL Hct (39.0-53.0) % Plt Count (150-450) k/uL Neutrophils # 11.7 H (1.3-7.7) k/uL Lymphocytes # 0.7 L (1.0-4.8) k/uL ABG pH (7.35-7.45) ABG pCO2 (35-45) mmHg ABG pO2 (83-108) mmHg ABG HCO3 (21-25) mmol/L ABG Total CO2 (19-24) mmol/L ABG O2 Saturation (94-97) % ABG Hematocrit (34.0-46.0) % ABG Sodium (135-146) mmol/L ABG Potassium (3.4-4.5) mmol/L ABG Ionized Calcium (4.5-5.3) mg/dL ABG Glucose (75-99) mg/dL Hemoglobin (13.0-17.5) gm/dL Sodium (137-145) mmol/L Chloride (98-107) mmol/L Creatinine (0.66-1.25) mg/dL Glucose (74-99) mg/dL POC Glucose (mg/dL) 135 H 112 H (75-99) mg/dL Calcium (8.4-10.2) mg/dL Magnesium (1.6-2.3) mg/dL Total Bilirubin (0.2-1.3) mg/dL Total Protein (6.3-8.2) g/dL Albumin (3.5-5.0) g/dL Arterial Blood Potassium (3.4-4.5) mmol/L Arterial Blood Glucose (75-99) mg/dL Crossmatch 10/12/18 10/13/18 10/13/18 Range/Units 22:51 00:05 01:10 WBC (3.8-10.6) k/uL RBC (4.30-5.90) m/uL Hgb (13.0-17.5) gm/dL Hct (39.0-53.0) % Plt Count (150-450) k/uL Neutrophils # (1.3-7.7) k/uL Lymphocytes # (1.0-4.8) k/uL ABG pH (7.35-7.45) ABG pCO2 (35-45) mmHg ABG pO2 (83-108) mmHg ABG HCO3 (21-25) mmol/L ABG Total CO2 (19-24) mmol/L ABG O2 Saturation (94-97) % ABG Hematocrit (34.0-46.0) % ABG Sodium (135-146) mmol/L ABG Potassium (3.4-4.5) mmol/L ABG Ionized Calcium (4.5-5.3) mg/dL ABG Glucose (75-99) mg/dL Hemoglobin (13.0-17.5) gm/dL Sodium (137-145) mmol/L Chloride (98-107) mmol/L Creatinine (0.66-1.25) mg/dL Glucose (74-99) mg/dL POC Glucose (mg/dL) 133 H 136 H 147 H (75-99) mg/dL Calcium (8.4-10.2) mg/dL Magnesium (1.6-2.3) mg/dL Total Bilirubin (0.2-1.3) mg/dL Total Protein (6.3-8.2) g/dL Albumin (3.5-5.0) g/dL Arterial Blood Potassium (3.4-4.5) mmol/L Arterial Blood Glucose (75-99) mg/dL Crossmatch 10/13/18 10/13/18 10/13/18 Range/Units 02:06 04:03 04:03 WBC 13.3 H (3.8-10.6) k/uL RBC (4.30-5.90) m/uL Hgb 12.3 L (13.0-17.5) gm/dL Hct 37.4 L (39.0-53.0) % Plt Count (150-450) k/uL Neutrophils # 11.7 H (1.3-7.7) k/uL Lymphocytes # 0.9 L (1.0-4.8) k/uL ABG pH (7.35-7.45) ABG pCO2 (35-45) mmHg ABG pO2 (83-108) mmHg ABG HCO3 (21-25) mmol/L ABG Total CO2 (19-24) mmol/L ABG O2 Saturation (94-97) % ABG Hematocrit (34.0-46.0) % ABG Sodium (135-146) mmol/L ABG Potassium (3.4-4.5) mmol/L ABG Ionized Calcium (4.5-5.3) mg/dL ABG Glucose (75-99) mg/dL Hemoglobin (13.0-17.5) gm/dL Sodium 135 L (137-145) mmol/L Chloride (98-107) mmol/L Creatinine 0.62 L (0.66-1.25) mg/dL Glucose 132 H (74-99) mg/dL POC Glucose (mg/dL) 139 H (75-99) mg/dL Calcium 8.2 L (8.4-10.2) mg/dL Magnesium (1.6-2.3) mg/dL Total Bilirubin 1.4 H (0.2-1.3) mg/dL Total Protein 5.7 L (6.3-8.2) g/dL Albumin 3.3 L (3.5-5.0) g/dL Arterial Blood Potassium (3.4-4.5) mmol/L Arterial Blood Glucose (75-99) mg/dL Crossmatch 10/13/18 10/13/18 10/13/18 Range/Units 04:12 05:57 07:09 WBC (3.8-10.6) k/uL RBC (4.30-5.90) m/uL Hgb (13.0-17.5) gm/dL Hct (39.0-53.0) % Plt Count (150-450) k/uL Neutrophils # (1.3-7.7) k/uL Lymphocytes # (1.0-4.8) k/uL ABG pH (7.35-7.45) ABG pCO2 (35-45) mmHg ABG pO2 (83-108) mmHg ABG HCO3 (21-25) mmol/L ABG Total CO2 (19-24) mmol/L ABG O2 Saturation (94-97) % ABG Hematocrit (34.0-46.0) % ABG Sodium (135-146) mmol/L ABG Potassium (3.4-4.5) mmol/L ABG Ionized Calcium (4.5-5.3) mg/dL ABG Glucose (75-99) mg/dL Hemoglobin (13.0-17.5) gm/dL Sodium (137-145) mmol/L Chloride (98-107) mmol/L Creatinine (0.66-1.25) mg/dL Glucose (74-99) mg/dL POC Glucose (mg/dL) 142 H 147 H 147 H (75-99) mg/dL Calcium (8.4-10.2) mg/dL Magnesium (1.6-2.3) mg/dL Total Bilirubin (0.2-1.3) mg/dL Total Protein (6.3-8.2) g/dL Albumin (3.5-5.0) g/dL Arterial Blood Potassium (3.4-4.5) mmol/L Arterial Blood Glucose (75-99) mg/dL Crossmatch Microbiology - Last 24 Hours (Table) 10/11/18 12:20 Nasal Screen MRSA/MSSA - Final Nasal Swab 10/11/18 12:20 Urine Culture - Final Urine,Clean Catch - Imaging and Cardiology Chest x-ray: image reviewed Assessment and Plan Assessment: 1. Coronary artery disease with significant left main disease, status post 2 vessel CABG 2. Obstructive sleep apnea with home CPAP use 3. Family history of significant coronary artery disease 4. Remote tobacco dependence with preoperative FEV1 78% of predicted Plan: 1. Continue aspirin, statin, Plavix, beta sravan therapy. Will increase beta sravan therapy as tolerated. Discontinue IV nitro. 2. Will start oral Norvasc for radial artery spasm. Discontinue IV Cardizem 30 minutes after administration of oral Norvasc. 3. Wean oxygen as tolerated. Encourage incentive spirometry use 10 times every hour while awake. Encourage continued smoking cessation. 4. Bronchodilators per pulmonology. 5. Increase activity, ambulate as tolerated. PT/OT/cardiac rehab following. 6. Will monitor daily labs and chest x-rays. Electrolyte replacement per protocol. No transfusion. 7. Pain control with current medication regimen. 8. Insulin management per primary care service. 9. Discontinue Louise. Connect cordis to continuous CVP monitoring. 10. Continue chest tubes for another 24 hours. 11. Continue Castelan for another 24 hours for strict accurate intake and output. 12. GI/DVT prophylaxis. 13. Home medications readmitted. 14. More recommendations to follow based on patient's progress. Time with Patient: Greater than 30
--- NOTE | 2018-10-13 08:22 | XR ---
EXAMINATION TYPE: XR chest 1V portable DATE OF EXAM: 10/13/2018 COMPARISON: Prior chest x-ray 10/12/2018 HISTORY: Postop cardiac surgery TECHNIQUE: Single frontal view of the chest is obtained. FINDINGS: Patient is post median sternotomy. Right jugular central venous catheter is present with t he distal tip overlying the pulmonary artery. Left-sided chest tube is in place as on prior exam. End otracheal tube and orogastric tube have been removed. Median sternal drain is in place. No evident pn eumothorax. Exam shows decreased lung volume, subsegmental atelectatic changes are present at the shiva g bases. Heart size is likely stable. IMPRESSION: Expiratory rotated exam. Interval extubation. Basilar atelectasis.
[2018-10-13] MEDS: ATORVASTATIN 40 MG TAB PO SCH (08:25)
[2018-10-13] MEDS: ASPIRIN 325 MG TAB PO SCH (08:25)
[2018-10-13] MEDS: CLOPIDOGREL 75 MG TAB PO SCH (08:25)
[2018-10-13] MEDS: METOPROLOL TARTRATE 12.5 MG TAB PO SCH (08:25)
[2018-10-13] MEDS: MUPIROCIN 2% OINT 22 GM TUBE NASAL SCH (08:26)
[2018-10-13] MEDS: IPRATROPIUM-ALBUTEROL 3 ML NEB INHALATION SCH ×4 (08:33→20:40)
[2018-10-13 08:35] LABS: Glucose,Whole Blood 190 mg/dL (75-99)
[2018-10-13] MEDS ORDERED: MAGNESIUM HYDROXIDE 2,400 MG/10 ML CUP PO PRN (09:00)
[2018-10-13] MEDS ORDERED: METOPROLOL TARTRATE 12.5 MG TAB PO SCH (09:00)
[2018-10-13] MEDS ORDERED: amLODIPine 2.5 MG TAB PO SCH (09:00)
[2018-10-13] MEDS ORDERED: FINASTERIDE 5 MG TAB PO SCH (09:00)
[2018-10-13] MEDS ORDERED: BISACODYL 10 MG SUPP RECTAL PRN (09:00)
[2018-10-13] MEDS ORDERED: PANTOPRAZOLE 40 MG/10 ML VIAL IVP SCH (09:00)
[2018-10-13 09:37] VITALS: BMI 30.9
--- NOTE | 2018-10-13 09:41 | P.PN ---
Subjective Progress Note Date: 10/13/18 This is a 53-year-old gentleman who recently had a strongly positive stress echocardiogram. 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 His undergone aortocoronary bypass surgery with the MALHOTRA graft to the LAD and radial graft to the OM branch. Patient is sitting up in the chair. He does complain of chest pain which is postsurgical. Patient is maintaining sinus rhythm. Patient still has some chest tubes and also [place]-Alejandro catheter from overall he patient symptomatically stable. No arrhythmias detected Objective - Vital Signs Vital signs: Vital Signs Temp 98.8 F 10/13/18 04:00 Pulse 77 10/13/18 09:00 Resp 17 10/13/18 09:00 BP 81/55 10/13/18 09:00 Pulse Ox 93 L 10/13/18 09:00 Intake & Output 10/12/18 10/13/18 10/13/18 18:59 06:59 18:59 Intake Total 092.839 2947.505 145.484 Output Total 3753 876 60 Balance -3342.054 636.505 85.484 Weight 100.5 kg 100.5 kg Intake: IV 408 1418 134.5 Albumin Human 5% 250 ml 500 In Empty Bag 1 bag @ 250 mls/hr IVPB Q1HR PRN Rx#: [id number] CO/CI 100 90 Diltiazem 125 mg In 25 60 10 Sodium Chloride 0.9% 100 ml @ 5 MG/HR 5 mls/hr IV .Q24H [facility] Rx#:[id number] Lactated Ringers 1,000 ml 150 600 100 @ 20 mls/hr IV .Q24H [facility] Rx#:[id number] Nitroglycerin-D5w Pmx 50 25 60 6.5 mg In Dextrose/Water 1 250ml.bag @ 5 MCG/MIN 1.5 mls/hr IV .Q24H [facility] Rx#: [id number] Pressure Bag 45 108 18 Intake, IV Titration 2.946 94.505 10.984 Amount Diltiazem 125 mg In 73.917 Sodium Chloride 0.9% 100 ml @ 5 MG/HR 5 mls/hr IV .Q24H [facility] Rx#:[id number] Insulin Regular 100 unit 2.946 20.588 10.984 In Sodium Chloride 0.9% 100 ml @ Per Protocol IV .Q0M [facility] Rx#:[id number] Output: Chest Tube Drainage 68 296 25 Chest Tube Left Pleural 8 98 15 Chest Tube Mediastinal 60 198 10 Drainage 10 Left Wrist 10 Urine 2285 580 25 Estimated Blood Loss 1400 Other: Voiding Method Indwelling Catheter Indwelling Catheter ABP, PAP, CO, CI - Last Documented Arterial Blood Pressure 117/56 Pulmonary Artery Pressure 29/14 Cardiac Output 4.6 Cardiac Index 2.1 - Exam GENERAL EXAM: Patient is alert and oriented and doesn't appear to be in any acute distress HEENT: Normocephalic. Normal reaction of pupils, equal size, normal range of ext raocular motion. No erythema or exudates in the throat. NECK: No masses, no nuchal rigidity. CHEST: Post CABG and postsurgical LUNGS: Rales at both bases HEART: S1 and S2 normal with no audible mumurs or gallops. Regular rhythm, femorals equal on both sides.. ABDOMEN: No hepatosplenomegaly, normal bowel sounds, no guarding or rigidity. SKIN: No rashes CENTRAL NERVOUS SYSTEM: No focal deficits. EXTREMITIES: No cyanosis, clubbing or edema. - Labs CBC & Chem 7: 10/13/18 04:03 10/13/18 04:03 Labs: Abnormal Lab Results - Last 24 Hours (Table) 10/12/18 10/12/18 10/12/18 Range/Units 01:45 08:23 09:50 WBC (3.8-10.6) k/uL RBC (4.30-5.90) m/uL Hgb (13.0-17.5) gm/dL Hct (39.0-53.0) % Plt Count (150-450) k/uL Neutrophils # (1.3-7.7) k/uL Lymphocytes # (1.0-4.8) k/uL ABG pH 7.31 L (7.35-7.45) ABG pCO2 49 H (35-45) mmHg ABG pO2 125 H (83-108) mmHg ABG HCO3 (21-25) mmol/L ABG Total CO2 25 H 26 H (19-24) mmol/L ABG O2 Saturation 98.9 H (94-97) % ABG Hematocrit (34.0-46.0) % ABG Sodium (135-146) mmol/L ABG Potassium (3.4-4.5) mmol/L ABG Ionized Calcium (4.5-5.3) mg/dL ABG Glucose 130 H (75-99) mg/dL Hemoglobin (13.0-17.5) gm/dL Sodium (137-145) mmol/L Chloride (98-107) mmol/L Creatinine (0.66-1.25) mg/dL Glucose (74-99) mg/dL POC Glucose (mg/dL) (75-99) mg/dL Calcium (8.4-10.2) mg/dL Magnesium (1.6-2.3) mg/dL Total Bilirubin (0.2-1.3) mg/dL Total Protein (6.3-8.2) g/dL Albumin (3.5-5.0) g/dL Arterial Blood Potassium (3.4-4.5) mmol/L Arterial Blood Glucose 130 H (75-99) mg/dL Crossmatch See Detail 10/12/18 10/12/18 10/12/18 Range/Units 10:57 10:57 11:28 WBC (3.8-10.6) k/uL RBC (4.30-5.90) m/uL Hgb (13.0-17.5) gm/dL Hct (39.0-53.0) % Plt Count (150-450) k/uL Neutrophils # (1.3-7.7) k/uL Lymphocytes # (1.0-4.8) k/uL ABG pH 7.31 L (7.35-7.45) ABG pCO2 48 H (35-45) mmHg ABG pO2 50 L* >420 H 407 H (83-108) mmHg ABG HCO3 (21-25) mmol/L ABG Total CO2 26 H 26 H (19-24) mmol/L ABG O2 Saturation 85.5 L 100.0 H 100.0 H (94-97) % ABG Hematocrit 30 L 30 L 30 L (34.0-46.0) % ABG Sodium 131 L 131 L 133 L (135-146) mmol/L ABG Potassium 6.0 H 5.6 H 5.1 H (3.4-4.5) mmol/L ABG Ionized Calcium 4.1 L 4.0 L 4.1 L (4.5-5.3) mg/dL ABG Glucose 219 H 217 H 209 H (75-99) mg/dL Hemoglobin 9.8 L 9.7 L 9.6 L (13.0-17.5) gm/dL Sodium (137-145) mmol/L Chloride (98-107) mmol/L Creatinine (0.66-1.25) mg/dL Glucose (74-99) mg/dL POC Glucose (mg/dL) (75-99) mg/dL Calcium (8.4-10.2) mg/dL Magnesium (1.6-2.3) mg/dL Total Bilirubin (0.2-1.3) mg/dL Total Protein (6.3-8.2) g/dL Albumin (3.5-5.0) g/dL Arterial Blood Potassium 6.0 H 5.6 H 5.1 H (3.4-4.5) mmol/L Arterial Blood Glucose 219 H 217 H 209 H (75-99) mg/dL Crossmatch 10/12/18 10/12/18 10/12/18 Range/Units 11:56 14:05 14:05 WBC 10.7 H (3.8-10.6) k/uL RBC 4.03 L (4.30-5.90) m/uL Hgb 11.8 L (13.0-17.5) gm/dL Hct 34.2 L (39.0-53.0) % Plt Count 147 L (150-450) k/uL Neutrophils # 9.3 H (1.3-7.7) k/uL Lymphocytes # (1.0-4.8) k/uL ABG pH (7.35-7.45) ABG pCO2 (35-45) mmHg ABG pO2 412 H (83-108) mmHg ABG HCO3 (21-25) mmol/L ABG Total CO2 27 H (19-24) mmol/L ABG O2 Saturation 100.0 H (94-97) % ABG Hematocrit 30 L (34.0-46.0) % ABG Sodium 134 L (135-146) mmol/L ABG Potassium 4.6 H (3.4-4.5) mmol/L ABG Ionized Calcium 4.2 L (4.5-5.3) mg/dL ABG Glucose 215 H (75-99) mg/dL Hemoglobin 9.7 L (13.0-17.5) gm/dL Sodium (137-145) mmol/L Chloride 108 H (98-107) mmol/L Creatinine 0.60 L (0.66-1.25) mg/dL Glucose 124 H (74-99) mg/dL POC Glucose (mg/dL) (75-99) mg/dL Calcium (8.4-10.2) mg/dL Magnesium 2.7 H (1.6-2.3) mg/dL Total Bilirubin (0.2-1.3) mg/dL Total Protein 5.1 L (6.3-8.2) g/dL Albumin 2.8 L (3.5-5.0) g/dL Arterial Blood Potassium 4.6 H (3.4-4.5) mmol/L Arterial Blood Glucose 215 H (75-99) mg/dL Crossmatch 10/12/18 10/12/18 10/12/18 Range/Units 14:09 14:28 15:01 WBC (3.8-10.6) k/uL RBC (4.30-5.90) m/uL Hgb (13.0-17.5) gm/dL Hct (39.0-53.0) % Plt Count (150-450) k/uL Neutrophils # (1.3-7.7) k/uL Lymphocytes # (1.0-4.8) k/uL ABG pH (7.35-7.45) ABG pCO2 (35-45) mmHg ABG pO2 184 H (83-108) mmHg ABG HCO3 27 H (21-25) mmol/L ABG Total CO2 28 H (19-24) mmol/L ABG O2 Saturation 99.4 H (94-97) % ABG Hematocrit (34.0-46.0) % ABG Sodium (135-146) mmol/L ABG Potassium (3.4-4.5) mmol/L ABG Ionized Calcium (4.5-5.3) mg/dL ABG Glucose (75-99) mg/dL Hemoglobin (13.0-17.5) gm/dL Sodium (137-145) mmol/L Chloride (98-107) mmol/L Creatinine (0.66-1.25) mg/dL Glucose (74-99) mg/dL POC Glucose (mg/dL) 121 H 110 H (75-99) mg/dL Calcium (8.4-10.2) mg/dL Magnesium (1.6-2.3) mg/dL Total Bilirubin (0.2-1.3) mg/dL Total Protein (6.3-8.2) g/dL Albumin (3.5-5.0) g/dL Arterial Blood Potassium (3.4-4.5) mmol/L Arterial Blood Glucose (75-99) mg/dL Crossmatch 10/12/18 10/12/18 10/12/18 Range/Units 15:55 17:00 17:02 WBC 16.7 H (3.8-10.6) k/uL RBC (4.30-5.90) m/uL Hgb (13.0-17.5) gm/dL Hct (39.0-53.0) % Plt Count (150-450) k/uL Neutrophils # 14.1 H (1.3-7.7) k/uL Lymphocytes # (1.0-4.8) k/uL ABG pH (7.35-7.45) ABG pCO2 (35-45) mmHg ABG pO2 (83-108) mmHg ABG HCO3 (21-25) mmol/L ABG Total CO2 (19-24) mmol/L ABG O2 Saturation (94-97) % ABG Hematocrit (34.0-46.0) % ABG Sodium (135-146) mmol/L ABG Potassium (3.4-4.5) mmol/L ABG Ionized Calcium (4.5-5.3) mg/dL ABG Glucose (75-99) mg/dL Hemoglobin (13.0-17.5) gm/dL Sodium (137-145) mmol/L Chloride (98-107) mmol/L Creatinine (0.66-1.25) mg/dL Glucose (74-99) mg/dL POC Glucose (mg/dL) 123 H 149 H (75-99) mg/dL Calcium (8.4-10.2) mg/dL Magnesium (1.6-2.3) mg/dL Total Bilirubin (0.2-1.3) mg/dL Total Protein (6.3-8.2) g/dL Albumin (3.5-5.0) g/dL Arterial Blood Potassium (3.4-4.5) mmol/L Arterial Blood Glucose (75-99) mg/dL Crossmatch 10/12/18 10/12/18 10/12/18 Range/Units 17:58 18:59 19:59 WBC (3.8-10.6) k/uL RBC (4.30-5.90) m/uL Hgb (13.0-17.5) gm/dL Hct (39.0-53.0) % Plt Count (150-450) k/uL Neutrophils # (1.3-7.7) k/uL Lymphocytes # (1.0-4.8) k/uL ABG pH (7.35-7.45) ABG pCO2 (35-45) mmHg ABG pO2 (83-108) mmHg ABG HCO3 (21-25) mmol/L ABG Total CO2 (19-24) mmol/L ABG O2 Saturation (94-97) % ABG Hematocrit (34.0-46.0) % ABG Sodium (135-146) mmol/L ABG Potassium (3.4-4.5) mmol/L ABG Ionized Calcium (4.5-5.3) mg/dL ABG Glucose (75-99) mg/dL Hemoglobin (13.0-17.5) gm/dL Sodium (137-145) mmol/L Chloride (98-107) mmol/L Creatinine (0.66-1.25) mg/dL Glucose (74-99) mg/dL POC Glucose (mg/dL) 149 H 146 H 139 H (75-99) mg/dL Calcium (8.4-10.2) mg/dL Magnesium (1.6-2.3) mg/dL Total Bilirubin (0.2-1.3) mg/dL Total Protein (6.3-8.2) g/dL Albumin (3.5-5.0) g/dL Arterial Blood Potassium (3.4-4.5) mmol/L Arterial Blood Glucose (75-99) mg/dL Crossmatch 10/12/18 10/12/18 10/12/18 Range/Units 20:00 20:47 21:57 WBC 12.9 H (3.8-10.6) k/uL RBC (4.30-5.90) m/uL Hgb (13.0-17.5) gm/dL Hct (39.0-53.0) % Plt Count (150-450) k/uL Neutrophils # 11.7 H (1.3-7.7) k/uL Lymphocytes # 0.7 L (1.0-4.8) k/uL ABG pH (7.35-7.45) ABG pCO2 (35-45) mmHg ABG pO2 (83-108) mmHg ABG HCO3 (21-25) mmol/L ABG Total CO2 (19-24) mmol/L ABG O2 Saturation (94-97) % ABG Hematocrit (34.0-46.0) % ABG Sodium (135-146) mmol/L ABG Potassium (3.4-4.5) mmol/L ABG Ionized Calcium (4.5-5.3) mg/dL ABG Glucose (75-99) mg/dL Hemoglobin (13.0-17.5) gm/dL Sodium (137-145) mmol/L Chloride (98-107) mmol/L Creatinine (0.66-1.25) mg/dL Glucose (74-99) mg/dL POC Glucose (mg/dL) 135 H 112 H (75-99) mg/dL Calcium (8.4-10.2) mg/dL Magnesium (1.6-2.3) mg/dL Total Bilirubin (0.2-1.3) mg/dL Total Protein (6.3-8.2) g/dL Albumin (3.5-5.0) g/dL Arterial Blood Potassium (3.4-4.5) mmol/L Arterial Blood Glucose (75-99) mg/dL Crossmatch 10/12/18 10/13/18 10/13/18 Range/Units 22:51 00:05 01:10 WBC (3.8-10.6) k/uL RBC (4.30-5.90) m/uL Hgb (13.0-17.5) gm/dL Hct (39.0-53.0) % Plt Count (150-450) k/uL Neutrophils # (1.3-7.7) k/uL Lymphocytes # (1.0-4.8) k/uL ABG pH (7.35-7.45) ABG pCO2 (35-45) mmHg ABG pO2 (83-108) mmHg ABG HCO3 (21-25) mmol/L ABG Total CO2 (19-24) mmol/L ABG O2 Saturation (94-97) % ABG Hematocrit (34.0-46.0) % ABG Sodium (135-146) mmol/L ABG Potassium (3.4-4.5) mmol/L ABG Ionized Calcium (4.5-5.3) mg/dL ABG Glucose (75-99) mg/dL Hemoglobin (13.0-17.5) gm/dL Sodium (137-145) mmol/L Chloride (98-107) mmol/L Creatinine (0.66-1.25) mg/dL Glucose (74-99) mg/dL POC Glucose (mg/dL) 133 H 136 H 147 H (75-99) mg/dL Calcium (8.4-10.2) mg/dL Magnesium (1.6-2.3) mg/dL Total Bilirubin (0.2-1.3) mg/dL Total Protein (6.3-8.2) g/dL Albumin (3.5-5.0) g/dL Arterial Blood Potassium (3.4-4.5) mmol/L Arterial Blood Glucose (75-99) mg/dL Crossmatch 10/13/18 10/13/18 10/13/18 Range/Units 02:06 04:03 04:03 WBC 13.3 H (3.8-10.6) k/uL RBC (4.30-5.90) m/uL Hgb 12.3 L (13.0-17.5) gm/dL Hct 37.4 L (39.0-53.0) % Plt Count (150-450) k/uL Neutrophils # 11.7 H (1.3-7.7) k/uL Lymphocytes # 0.9 L (1.0-4.8) k/uL ABG pH (7.35-7.45) ABG pCO2 (35-45) mmHg ABG pO2 (83-108) mmHg ABG HCO3 (21-25) mmol/L ABG Total CO2 (19-24) mmol/L ABG O2 Saturation (94-97) % ABG Hematocrit (34.0-46.0) % ABG Sodium (135-146) mmol/L ABG Potassium (3.4-4.5) mmol/L ABG Ionized Calcium (4.5-5.3) mg/dL ABG Glucose (75-99) mg/dL Hemoglobin (13.0-17.5) gm/dL Sodium 135 L (137-145) mmol/L Chloride (98-107) mmol/L Creatinine 0.62 L (0.66-1.25) mg/dL Glucose 132 H (74-99) mg/dL POC Glucose (mg/dL) 139 H (75-99) mg/dL Calcium 8.2 L (8.4-10.2) mg/dL Magnesium (1.6-2.3) mg/dL Total Bilirubin 1.4 H (0.2-1.3) mg/dL Total Protein 5.7 L (6.3-8.2) g/dL Albumin 3.3 L (3.5-5.0) g/dL Arterial Blood Potassium (3.4-4.5) mmol/L Arterial Blood Glucose (75-99) mg/dL Crossmatch 10/13/18 10/13/18 10/13/18 Range/Units 04:12 05:57 07:09 WBC (3.8-10.6) k/uL RBC (4.30-5.90) m/uL Hgb (13.0-17.5) gm/dL Hct (39.0-53.0) % Plt Count (150-450) k/uL Neutrophils # (1.3-7.7) k/uL Lymphocytes # (1.0-4.8) k/uL ABG pH (7.35-7.45) ABG pCO2 (35-45) mmHg ABG pO2 (83-108) mmHg ABG HCO3 (21-25) mmol/L ABG Total CO2 (19-24) mmol/L ABG O2 Saturation (94-97) % ABG Hematocrit (34.0-46.0) % ABG Sodium (135-146) mmol/L ABG Potassium (3.4-4.5) mmol/L ABG Ionized Calcium (4.5-5.3) mg/dL ABG Glucose (75-99) mg/dL Hemoglobin (13.0-17.5) gm/dL Sodium (137-145) mmol/L Chloride (98-107) mmol/L Creatinine (0.66-1.25) mg/dL Glucose (74-99) mg/dL POC Glucose (mg/dL) 142 H 147 H 147 H (75-99) mg/dL Calcium (8.4-10.2) mg/dL Magnesium (1.6-2.3) mg/dL Total Bilirubin (0.2-1.3) mg/dL Total Protein (6.3-8.2) g/dL Albumin (3.5-5.0) g/dL Arterial Blood Potassium (3.4-4.5) mmol/L Arterial Blood Glucose (75-99) mg/dL Crossmatch 10/13/18 Range/Units 08:33 WBC (3.8-10.6) k/uL RBC (4.30-5.90) m/uL Hgb (13.0-17.5) gm/dL Hct (39.0-53.0) % Plt Count (150-450) k/uL Neutrophils # (1.3-7.7) k/uL Lymphocytes # (1.0-4.8) k/uL ABG pH (7.35-7.45) ABG pCO2 (35-45) mmHg ABG pO2 (83-108) mmHg ABG HCO3 (21-25) mmol/L ABG Total CO2 (19-24) mmol/L ABG O2 Saturation (94-97) % ABG Hematocrit (34.0-46.0) % ABG Sodium (135-146) mmol/L ABG Potassium (3.4-4.5) mmol/L ABG Ionized Calcium (4.5-5.3) mg/dL ABG Glucose (75-99) mg/dL Hemoglobin (13.0-17.5) gm/dL Sodium (137-145) mmol/L Chloride (98-107) mmol/L Creatinine (0.66-1.25) mg/dL Glucose (74-99) mg/dL POC Glucose (mg/dL) 190 H (75-99) mg/dL Calcium (8.4-10.2) mg/dL Magnesium (1.6-2.3) mg/dL Total Bilirubin (0.2-1.3) mg/dL Total Protein (6.3-8.2) g/dL Albumin (3.5-5.0) g/dL Arterial Blood Potassium (3.4-4.5) mmol/L Arterial Blood Glucose (75-99) mg/dL Crossmatch Microbiology - Last 24 Hours (Table) 10/11/18 12:20 Nasal Screen MRSA/MSSA - Final Nasal Swab 10/11/18 12:20 Urine Culture - Final Urine,Clean Catch Assessment and Plan (1) Left main coronary artery disease Current Visit: Yes Status: Acute Code(s): I25.10 - ATHSCL HEART DISEASE OF [place] CORONARY ARTERY W/O ANG PCTRS SNOMED Code(s): 600391132 (2) S/P CABG (coronary artery bypass graft) Current Visit: Yes Status: Acute Code(s): Z95.1 - PRESENCE OF AORTOCORONARY BYPASS GRAFT SNOMED Code(s): 487591453 Plan: Patient is making good progress. Sitting up in the chair. No arrhythmias dete cted. Hemodynamically stable. We'll follow
[2018-10-13 09:54] LABS: Glucose,Whole Blood 212 mg/dL (75-99)
[2018-10-13] MEDS: buPROPion SR 100 MG TABLET.ER PO SCH (10:29)
[2018-10-13 10:39] LABS: Glucose,Whole Blood 154 mg/dL (75-99)
[2018-10-13] MEDS: LACTATED RINGERS 1,000 ML IV SCH (10:43)
[2018-10-13 11:42] LABS: Glucose,Whole Blood 126 mg/dL (75-99)
[2018-10-13 12:37] LABS: Glucose,Whole Blood 122 mg/dL (75-99)
[2018-10-13 14:06] LABS: Glucose,Whole Blood 134 mg/dL (75-99)
[2018-10-13] MEDS ORDERED: METOPROLOL TARTRATE 12.5 MG TAB PO STA (14:17)
--- NOTE | 2018-10-13 14:59 | P.PN ---
Subjective Patient is status post CABG postoperative day one, clinically doing well patient is extubated patient still has 2 chest tubes currently feeling well sitting on the chair patient's [place]-Alejandro was removed, remains on insulin drip was started on oral Norvasc for radial artery spasm of IV insulin will be discontinued patient will be started on sliding scale Constitutional: Denied any fatigue denied any fever. Cardio vascular: denied any chest pain, palpitations Gastrointestinal denied any nausea vomiting Pulmonary: Denied any shortness of breath cough Neurologic denied any new focal deficits All inpatient medications were reviewed and appropriate changes in these medications as dictated in the interval history and assessment and plan. Objective - Vital Signs Vital signs: Vital Signs Temp 98 F 10/13/18 12:30 Pulse 92 10/13/18 14:00 Resp 23 10/13/18 14:00 BP 81/55 10/13/18 09:00 Pulse Ox 92 L 10/13/18 14:00 Intake & Output 10/12/18 10/13/18 10/13/18 18:59 06:59 18:59 Intake Total 613.764 7030.505 1008.063 Output Total 3753 876 820 Balance -3342.054 636.505 188.063 Weight 100.5 kg 100.5 kg Intake: IV 408 1418 616.5 Albumin Human 5% 250 ml 500 250 In Empty Bag 1 bag @ 250 mls/hr IVPB Q1HR PRN Rx#: [id number] CO/CI 100 90 Diltiazem 125 mg In 25 60 10 Sodium Chloride 0.9% 100 ml @ 5 MG/HR 5 mls/hr IV .Q24H [facility] Rx#:[id number] Lactated Ringers 1,000 ml 150 600 290 @ 20 mls/hr IV .Q24H [facility] Rx#:[id number] Nitroglycerin-D5w Pmx 50 25 60 6.5 mg In Dextrose/Water 1 250ml.bag @ 5 MCG/MIN 1.5 mls/hr IV .Q24H [facility] Rx#: [id number] Pressure Bag 45 108 60 Intake, IV Titration 2.946 94.505 31.563 Amount Diltiazem 125 mg In 73.917 Sodium Chloride 0.9% 100 ml @ 5 MG/HR 5 mls/hr IV .Q24H [facility] Rx#:[id number] Insulin Regular 100 unit 2.946 20.588 31.563 In Sodium Chloride 0.9% 100 ml @ Per Protocol IV .Q0M [facility] Rx#:[id number] Oral 360 Output: Chest Tube Drainage 68 296 45 Chest Tube Left Pleural 8 98 25 Chest Tube Mediastinal 60 198 20 Drainage 10 Left Wrist 10 Urine 2285 580 765 Estimated Blood Loss 1400 Other: Voiding Method Indwelling Catheter Indwelling Catheter Indwelling Catheter # Voids 2 ABP, PAP, CO, CI - Last Documented Arterial Blood Pressure 139/58 Pulmonary Artery Pressure 26/11 Cardiac Output 4.6 Cardiac Index 2.1 - Exam PHYSICAL EXAMINATION: GENERAL: She is alert oriented 3 still has chest tubes feeling well HEENT: Pupils are round and equally reacting to light. EOMI. No scleral icterus. No conjunctival pallor. Normocephalic, atraumatic. No pharyngeal erythema. No thyromegaly. CARDIOVASCULAR: S1 and S2 present. No murmurs, rubs, or gallops. PULMONARY: Chest is clear to auscultation, no wheezing or crackles. Shouldn't has chest tubes as mentioned above ABDOMEN: Soft, nontender, nondistended, normoactive bowel sounds. No palpable organomegaly. MUSCULOSKELETAL: No joint swelling or deformity. EXTREMITIES: No cyanosis, clubbing, or pedal edema. NEUROLOGICAL: Unable to assess SKIN: No rashes. - Labs CBC & Chem 7: 10/13/18 04:03 10/13/18 04:03 Labs: Abnormal Lab Results - Last 24 Hours (Table) 10/12/18 10/12/18 10/12/18 Range/Units 15:01 15:55 17:00 WBC 16.7 H (3.8-10.6) k/uL Hgb (13.0-17.5) gm/dL Hct (39.0-53.0) % Neutrophils # 14.1 H (1.3-7.7) k/uL Lymphocytes # (1.0-4.8) k/uL Sodium (137-145) mmol/L Creatinine (0.66-1.25) mg/dL Glucose (74-99) mg/dL POC Glucose (mg/dL) 110 H 123 H (75-99) mg/dL Calcium (8.4-10.2) mg/dL Total Bilirubin (0.2-1.3) mg/dL Total Protein (6.3-8.2) g/dL Albumin (3.5-5.0) g/dL 10/12/18 10/12/18 10/12/18 Range/Units 17:02 17:58 18:59 WBC (3.8-10.6) k/uL Hgb (13.0-17.5) gm/dL Hct (39.0-53.0) % Neutrophils # (1.3-7.7) k/uL Lymphocytes # (1.0-4.8) k/uL Sodium (137-145) mmol/L Creatinine (0.66-1.25) mg/dL Glucose (74-99) mg/dL POC Glucose (mg/dL) 149 H 149 H 146 H (75-99) mg/dL Calcium (8.4-10.2) mg/dL Total Bilirubin (0.2-1.3) mg/dL Total Protein (6.3-8.2) g/dL Albumin (3.5-5.0) g/dL 10/12/18 10/12/18 10/12/18 Range/Units 19:59 20:00 20:47 WBC 12.9 H (3.8-10.6) k/uL Hgb (13.0-17.5) gm/dL Hct (39.0-53.0) % Neutrophils # 11.7 H (1.3-7.7) k/uL Lymphocytes # 0.7 L (1.0-4.8) k/uL Sodium (137-145) mmol/L Creatinine (0.66-1.25) mg/dL Glucose (74-99) mg/dL POC Glucose (mg/dL) 139 H 135 H (75-99) mg/dL Calcium (8.4-10.2) mg/dL Total Bilirubin (0.2-1.3) mg/dL Total Protein (6.3-8.2) g/dL Albumin (3.5-5.0) g/dL 10/12/18 10/12/18 10/13/18 Range/Units 21:57 22:51 00:05 WBC (3.8-10.6) k/uL Hgb (13.0-17.5) gm/dL Hct (39.0-53.0) % Neutrophils # (1.3-7.7) k/uL Lymphocytes # (1.0-4.8) k/uL Sodium (137-145) mmol/L Creatinine (0.66-1.25) mg/dL Glucose (74-99) mg/dL POC Glucose (mg/dL) 112 H 133 H 136 H (75-99) mg/dL Calcium (8.4-10.2) mg/dL Total Bilirubin (0.2-1.3) mg/dL Total Protein (6.3-8.2) g/dL Albumin (3.5-5.0) g/dL 10/13/18 10/13/18 10/13/18 Range/Units 01:10 02:06 04:03 WBC 13.3 H (3.8-10.6) k/uL Hgb 12.3 L (13.0-17.5) gm/dL Hct 37.4 L (39.0-53.0) % Neutrophils # 11.7 H (1.3-7.7) k/uL Lymphocytes # 0.9 L (1.0-4.8) k/uL Sodium (137-145) mmol/L Creatinine (0.66-1.25) mg/dL Glucose (74-99) mg/dL POC Glucose (mg/dL) 147 H 139 H (75-99) mg/dL Calcium (8.4-10.2) mg/dL Total Bilirubin (0.2-1.3) mg/dL Total Protein (6.3-8.2) g/dL Albumin (3.5-5.0) g/dL 10/13/18 10/13/18 10/13/18 Range/Units 04:03 04:12 05:57 WBC (3.8-10.6) k/uL Hgb (13.0-17.5) gm/dL Hct (39.0-53.0) % Neutrophils # (1.3-7.7) k/uL Lymphocytes # (1.0-4.8) k/uL Sodium 135 L (137-145) mmol/L Creatinine 0.62 L (0.66-1.25) mg/dL Glucose 132 H (74-99) mg/dL POC Glucose (mg/dL) 142 H 147 H (75-99) mg/dL Calcium 8.2 L (8.4-10.2) mg/dL Total Bilirubin 1.4 H (0.2-1.3) mg/dL Total Protein 5.7 L (6.3-8.2) g/dL Albumin 3.3 L (3.5-5.0) g/dL 10/13/18 10/13/18 10/13/18 Range/Units 07:09 08:33 09:41 WBC (3.8-10.6) k/uL Hgb (13.0-17.5) gm/dL Hct (39.0-53.0) % Neutrophils # (1.3-7.7) k/uL Lymphocytes # (1.0-4.8) k/uL Sodium (137-145) mmol/L Creatinine (0.66-1.25) mg/dL Glucose (74-99) mg/dL POC Glucose (mg/dL) 147 H 190 H 212 H (75-99) mg/dL Calcium (8.4-10.2) mg/dL Total Bilirubin (0.2-1.3) mg/dL Total Protein (6.3-8.2) g/dL Albumin (3.5-5.0) g/dL 10/13/18 10/13/18 10/13/18 Range/Units 10:36 11:39 12:34 WBC (3.8-10.6) k/uL Hgb (13.0-17.5) gm/dL Hct (39.0-53.0) % Neutrophils # (1.3-7.7) k/uL Lymphocytes # (1.0-4.8) k/uL Sodium (137-145) mmol/L Creatinine (0.66-1.25) mg/dL Glucose (74-99) mg/dL POC Glucose (mg/dL) 154 H 126 H 122 H (75-99) mg/dL Calcium (8.4-10.2) mg/dL Total Bilirubin (0.2-1.3) mg/dL Total Protein (6.3-8.2) g/dL Albumin (3.5-5.0) g/dL 10/13/18 Range/Units 14:03 WBC (3.8-10.6) k/uL Hgb (13.0-17.5) gm/dL Hct (39.0-53.0) % Neutrophils # (1.3-7.7) k/uL Lymphocytes # (1.0-4.8) k/uL Sodium (137-145) mmol/L Creatinine (0.66-1.25) mg/dL Glucose (74-99) mg/dL POC Glucose (mg/dL) 134 H (75-99) mg/dL Calcium (8.4-10.2) mg/dL Total Bilirubin (0.2-1.3) mg/dL Total Protein (6.3-8.2) g/dL Albumin (3.5-5.0) g/dL Microbiology - Last 24 Hours (Table) 10/11/18 12:20 Nasal Screen MRSA/MSSA - Final Nasal Swab 10/11/18 12:20 Urine Culture - Final Urine,Clean Catch Assessment and Plan Plan: -Unstable angina coronary artery disease with left main stenosis status post bypass grafting patient is on above-mentioned drips and chest use -Postoperative respiratory failure question will be extubated later today off sedation. -Obstructive sleep apnea -Nicotine dependence Plan is continue with present management dyspnea IV insulin patient will be started on sliding scale insulin
[2018-10-13] MEDS ORDERED: VANCOMYCIN IV PER PHARMACY 1 EACH MISC MISCELLANE PRN (15:02)
--- NOTE | 2018-10-13 15:08 | P.PN ---
Subjective Progress Note Date: 10/13/18 On 10/13/2018 the patient is postop day #1 following coronary artery bypass surgery which involved a MALHOTRA to LAD and the radiograph to obtuse marginal artery. The patient is doing well. The patient was extubated immediately with a few hours after he arrived to the intensive care units. He has a good lung function. The patient currently is on oxygen and his 40s per minute nasal cannula. No signs of any respiratory distress. He has mediastinal and left pleural chest tube. Output is minimal at this point in time. No issues with pain and the patient is using incentive spirometer and he is pulling approximately 1000 mL on his incentive spirometer. No chest pain. No shortness of breath. Cardiac rhythm is sinus. He is on no pressors. He is on Cardizem drip per protocol following a radial artery harvesting. No nausea. No vomiting. No abdominal pain. He is going to ambulate today. Objective - Vital Signs Vital signs: Vital Signs Temp 98 F 10/13/18 12:30 Pulse 92 10/13/18 14:00 Resp 23 10/13/18 14:00 BP 81/55 10/13/18 09:00 Pulse Ox 92 L 10/13/18 14:00 Intake & Output 10/12/18 10/13/18 10/13/18 18:59 06:59 18:59 Intake Total 979.915 7974.505 1008.063 Output Total 3753 876 820 Balance -3342.054 636.505 188.063 Weight 100.5 kg 100.5 kg Intake: IV 408 1418 616.5 Albumin Human 5% 250 ml 500 250 In Empty Bag 1 bag @ 250 mls/hr IVPB Q1HR PRN Rx#: [id number] CO/CI 100 90 Diltiazem 125 mg In 25 60 10 Sodium Chloride 0.9% 100 ml @ 5 MG/HR 5 mls/hr IV .Q24H [facility] Rx#:[id number] Lactated Ringers 1,000 ml 150 600 290 @ 20 mls/hr IV .Q24H [facility] Rx#:[id number] Nitroglycerin-D5w Pmx 50 25 60 6.5 mg In Dextrose/Water 1 250ml.bag @ 5 MCG/MIN 1.5 mls/hr IV .Q24H [facility] Rx#: [id number] Pressure Bag 45 108 60 Intake, IV Titration 2.946 94.505 31.563 Amount Diltiazem 125 mg In 73.917 Sodium Chloride 0.9% 100 ml @ 5 MG/HR 5 mls/hr IV .Q24H [facility] Rx#:[id number] Insulin Regular 100 unit 2.946 20.588 31.563 In Sodium Chloride 0.9% 100 ml @ Per Protocol IV .Q0M [facility] Rx#:[id number] Oral 360 Output: Chest Tube Drainage 68 296 45 Chest Tube Left Pleural 8 98 25 Chest Tube Mediastinal 60 198 20 Drainage 10 Left Wrist 10 Urine 2285 580 765 Estimated Blood Loss 1400 Other: Voiding Method Indwelling Catheter Indwelling Catheter Indwelling Catheter # Voids 2 ABP, PAP, CO, CI - Last Documented Arterial Blood Pressure 139/58 Pulmonary Artery Pressure 26/11 Cardiac Output 4.6 Cardiac Index 2.1 - Exam - Constitutional General appearance: Present: cooperative, no acute distress, obese - Respiratory Details: Lungs sounds diminished bilaterally. Respirations even, nonlabored. Currently on 4 L nasal cannula with oxygen saturation 94%. Able to achieve 1000 mL on his incentive spirometry. Strong cough. Mediastinal chest tube to continuous wall suction, 150 mL serosanguineous drainage overnight, 250 mL since surgery. Left pleural chest tube to continuous wall suction, 65 mL serosanguineous drainage overnight, 100 mL since surgery. No air leaks present. - Cardiovascular Details: S1, S2 present. Regular rate and rhythm, sinus rhythm on telemetry. Sternum stable. A/V epicardial pacemaker wires present, connected to generator, DDD mode with backup rate 50 bpm. Palpable peripheral pulses bilaterally. No edema present. No calf pain or tenderness noted. Right internal jugular [place]/Cordis, right radial arterial line present. Last CO/CI 4.6/2.1 on no inotropes or pressors. Heart hugger in place with patient demonstrating appropriate use. Antiembolism stockings, SCDs present. - Gastrointestinal Gastrointestinal Comment(s): Abdomen soft, nontender, nondistended. Hypoactive bowel sounds present 4 quadrants. Tolerating clear liquids. Positive belching, positive flatus. - Genitourinary Genitourinary Comment(s): Castelan present draining clear, yellow urine. Output was 35-70 mL/h overnight, down to 25 mL/h this morning. - Integumentary Integumentary Comment(s): Skin is warm and dry with evidence of good perfusion. Anterior chest incision well approximated and covered with dry intact dressing. Left radial artery harvest site well approximated, NICK drain present with minimal serosanguineous drainage. Patient has full mobility in his left hand, good cap refill, no numbness or tingling. - Neurologic Neurologic: Present: CNII-XII intact - Musculoskeletal Musculoskeletal: Present: gait normal, strength equal bilaterally - Psychiatric Psychiatric: Present: A&O x's 3, appropriate affect, intact judgment & insight - Labs CBC & Chem 7: 10/13/18 04:03 10/13/18 04:03 Labs: Abnormal Lab Results - Last 24 Hours (Table) 10/12/18 10/12/18 10/12/18 Range/Units 15:55 17:00 17:02 WBC 16.7 H (3.8-10.6) k/uL Hgb (13.0-17.5) gm/dL Hct (39.0-53.0) % Neutrophils # 14.1 H (1.3-7.7) k/uL Lymphocytes # (1.0-4.8) k/uL Sodium (137-145) mmol/L Creatinine (0.66-1.25) mg/dL Glucose (74-99) mg/dL POC Glucose (mg/dL) 123 H 149 H (75-99) mg/dL Calcium (8.4-10.2) mg/dL Total Bilirubin (0.2-1.3) mg/dL Total Protein (6.3-8.2) g/dL Albumin (3.5-5.0) g/dL 10/12/18 10/12/18 10/12/18 Range/Units 17:58 18:59 19:59 WBC (3.8-10.6) k/uL Hgb (13.0-17.5) gm/dL Hct (39.0-53.0) % Neutrophils # (1.3-7.7) k/uL Lymphocytes # (1.0-4.8) k/uL Sodium (137-145) mmol/L Creatinine (0.66-1.25) mg/dL Glucose (74-99) mg/dL POC Glucose (mg/dL) 149 H 146 H 139 H (75-99) mg/dL Calcium (8.4-10.2) mg/dL Total Bilirubin (0.2-1.3) mg/dL Total Protein (6.3-8.2) g/dL Albumin (3.5-5.0) g/dL 10/12/18 10/12/18 10/12/18 Range/Units 20:00 20:47 21:57 WBC 12.9 H (3.8-10.6) k/uL Hgb (13.0-17.5) gm/dL Hct (39.0-53.0) % Neutrophils # 11.7 H (1.3-7.7) k/uL Lymphocytes # 0.7 L (1.0-4.8) k/uL Sodium (137-145) mmol/L Creatinine (0.66-1.25) mg/dL Glucose (74-99) mg/dL POC Glucose (mg/dL) 135 H 112 H (75-99) mg/dL Calcium (8.4-10.2) mg/dL Total Bilirubin (0.2-1.3) mg/dL Total Protein (6.3-8.2) g/dL Albumin (3.5-5.0) g/dL 10/12/18 10/13/18 10/13/18 Range/Units 22:51 00:05 01:10 WBC (3.8-10.6) k/uL Hgb (13.0-17.5) gm/dL Hct (39.0-53.0) % Neutrophils # (1.3-7.7) k/uL Lymphocytes # (1.0-4.8) k/uL Sodium (137-145) mmol/L Creatinine (0.66-1.25) mg/dL Glucose (74-99) mg/dL POC Glucose (mg/dL) 133 H 136 H 147 H (75-99) mg/dL Calcium (8.4-10.2) mg/dL Total Bilirubin (0.2-1.3) mg/dL Total Protein (6.3-8.2) g/dL Albumin (3.5-5.0) g/dL 10/13/18 10/13/18 10/13/18 Range/Units 02:06 04:03 04:03 WBC 13.3 H (3.8-10.6) k/uL Hgb 12.3 L (13.0-17.5) gm/dL Hct 37.4 L (39.0-53.0) % Neutrophils # 11.7 H (1.3-7.7) k/uL Lymphocytes # 0.9 L (1.0-4.8) k/uL Sodium 135 L (137-145) mmol/L Creatinine 0.62 L (0.66-1.25) mg/dL Glucose 132 H (74-99) mg/dL POC Glucose (mg/dL) 139 H (75-99) mg/dL Calcium 8.2 L (8.4-10.2) mg/dL Total Bilirubin 1.4 H (0.2-1.3) mg/dL Total Protein 5.7 L (6.3-8.2) g/dL Albumin 3.3 L (3.5-5.0) g/dL 10/13/18 10/13/18 10/13/18 Range/Units 04:12 05:57 07:09 WBC (3.8-10.6) k/uL Hgb (13.0-17.5) gm/dL Hct (39.0-53.0) % Neutrophils # (1.3-7.7) k/uL Lymphocytes # (1.0-4.8) k/uL Sodium (137-145) mmol/L Creatinine (0.66-1.25) mg/dL Glucose (74-99) mg/dL POC Glucose (mg/dL) 142 H 147 H 147 H (75-99) mg/dL Calcium (8.4-10.2) mg/dL Total Bilirubin (0.2-1.3) mg/dL Total Protein (6.3-8.2) g/dL Albumin (3.5-5.0) g/dL 10/13/18 10/13/18 10/13/18 Range/Units 08:33 09:41 10:36 WBC (3.8-10.6) k/uL Hgb (13.0-17.5) gm/dL Hct (39.0-53.0) % Neutrophils # (1.3-7.7) k/uL Lymphocytes # (1.0-4.8) k/uL Sodium (137-145) mmol/L Creatinine (0.66-1.25) mg/dL Glucose (74-99) mg/dL POC Glucose (mg/dL) 190 H 212 H 154 H (75-99) mg/dL Calcium (8.4-10.2) mg/dL Total Bilirubin (0.2-1.3) mg/dL Total Protein (6.3-8.2) g/dL Albumin (3.5-5.0) g/dL 10/13/18 10/13/18 10/13/18 Range/Units 11:39 12:34 14:03 WBC (3.8-10.6) k/uL Hgb (13.0-17.5) gm/dL Hct (39.0-53.0) % Neutrophils # (1.3-7.7) k/uL Lymphocytes # (1.0-4.8) k/uL Sodium (137-145) mmol/L Creatinine (0.66-1.25) mg/dL Glucose (74-99) mg/dL POC Glucose (mg/dL) 126 H 122 H 134 H (75-99) mg/dL Calcium (8.4-10.2) mg/dL Total Bilirubin (0.2-1.3) mg/dL Total Protein (6.3-8.2) g/dL Albumin (3.5-5.0) g/dL Microbiology - Last 24 Hours (Table) 10/11/18 12:20 Nasal Screen MRSA/MSSA - Final Nasal Swab 10/11/18 12:20 Urine Culture - Final Urine,Clean Catch Assessment and Plan Plan: 1 coronary artery disease, symptomatic and the patient underwent two-vessel bypass surgery with MALHOTRA to LAD and a radial artery graft to obtuse marginal branch. The patient has postop day #1 2 post thoracotomy and the patient has been extubated without any major difficulties of the chest tubes are still in place with diminished output 3 obstructive sleep apnea with previous history of CPAP use 4 preop FEV1 of 70% and the patient is a ex-smoker. Plan Discontinue the Cardizem drip and switch this patient oral Norvasc. Wean off the insulin drip as the patient has no history of diabetes mellitus. Monitor the blood sugars. History of bronchodilators. Use incentive spirometer. Continue aspirin. Continue Plavix. Continue beta blockers. We'll discontinue [place]-Alejandro catheter. We will keep the chest tube management per cardiothoracic surgery. We'll keep the patient ICU for 24 hours. His condition is stable for now.
[2018-10-13] MEDS ORDERED: VANCOMYCIN 2,000 MG in SODIUM CHLORIDE 0.9% 500 ML 500 ML IVPB ONE (15:15)
[2018-10-13 15:24] LABS: Glucose,Whole Blood 119 mg/dL (75-99)
[2018-10-13 16:31] LABS: Glucose,Whole Blood 118 mg/dL (75-99)
[2018-10-13 17:53] LABS: Glucose,Whole Blood 119 mg/dL (75-99)
[2018-10-13] MEDS: INSULIN ASPART (NovoLOG) 100 UNIT/ML VIAL SQ SCH ×2 (18:06→20:14)
[2018-10-13] MEDS: SENNOSIDES-DOCUSATE SODIUM 1 EACH TAB PO SCH (19:49)
[2018-10-13] MEDS: FINASTERIDE 5 MG TAB PO SCH (19:49)
[2018-10-13 20:10] LABS: Glucose,Whole Blood 164 mg/dL (75-99)
[2018-10-13] MEDS ORDERED: amLODIPine 2.5 MG TAB PO STA (20:10)
[2018-10-13] MEDS ORDERED: METOPROLOL TARTRATE 25 MG TAB PO SCH (21:00)
[2018-10-13] MEDS ORDERED: METOPROLOL TARTRATE 25 MG TAB PO STA (22:09)
[2018-10-14] MEDS ORDERED: VANCOMYCIN 1,500 MG in SODIUM CHLORIDE 0.9% 250 ML IVPB SCH ×2
[2018-10-14 04:11] LABS: Basophils % (A) 0 %; Eosinophils # (A) 0.1 k/uL (0-0.7); Eosinophils % (A) 1 %; HCT 30.7 % (39.0-53.0); HGB 10.4 gm/dL (13.0-17.5); Lymphocytes # (A) 1.7 k/uL (1.0-4.8); Lymphocytes % (A) 17 %; MCH 29.6 pg (25.0-35.0); MCHC 33.8 g/dL (31.0-37.0); MCV 87.4 fL (80.0-100.0); Mean Platelet Volume 7.6; Monocytes # (A) 0.4 k/uL (0-1.0); Monocytes % (A) 4 %; Neutrophils # (A) 7.8 k/uL (1.3-7.7); Neutrophils % (A) 76 %; Platelet Count 122 k/uL (150-450); RBC 3.51 m/uL (4.30-5.90); RDW 13.9 % (11.5-15.5); WBC 10.2 k/uL (3.8-10.6)
[2018-10-14 04:55] LABS: ALT 21 U/L (21-72); AST 28 U/L (17-59); African American GFR (CKD) >90 (>60 ml/min/1.73 sqM); Albumin 3.1 g/dL (3.5-5.0); Alkaline Phosphatase 37 U/L (38-126); Anion Gap 3 mmol/L; Blood Urea Nitrogen 16 mg/dL (9-20); Calcium 8.3 mg/dL (8.4-10.2); Carbon Dioxide 27 mmol/L (22-30); Chloride 105 mmol/L (98-107); Glucose 113 mg/dL (74-99); Potassium 4.1 mmol/L (3.5-5.1); Sodium 135 mmol/L (137-145); Total Bilirubin 1.1 mg/dL (0.2-1.3); Total Protein 5.2 g/dL (6.3-8.2)
[2018-10-14] MEDS: PANTOPRAZOLE 40 MG TABLET PO SCH (07:16)
[2018-10-14] MEDS: KETOROLAC 30 MG/ML 1 ML VIAL IVP SCH ×3 (07:16→19:36)
[2018-10-14] MEDS: INSULIN ASPART (NovoLOG) 100 UNIT/ML VIAL SQ SCH ×4 (07:21→21:15)
[2018-10-14 07:24] LABS: Glucose,Whole Blood 93 mg/dL (75-99)
--- NOTE | 2018-10-14 07:50 | XR ---
EXAMINATION TYPE: XR chest 1V portable DATE OF EXAM: 10/14/2018 CLINICAL HISTORY: Difficulty breathing progress study. Post open cardiac surgery. TECHNIQUE: Single AP portable upright view of the chest is obtained. COMPARISON: Chest x-ray from one day earlier and older studies. FINDINGS: There is interval removal of right internal jugular [place]-Alejandro catheter, cordis sheath is n ow present. There is persistent left basilar chest tube and 2 mediastinal drainage catheters. Overlyi ng sternal wires and mediastinal clips are redemonstrated. There is persistent low lung volumes and stable cardiomegaly with increasing central vascular congest ion and bibasilar opacities. No pneumothorax is seen bilaterally. Osseous structures are intact. IMPRESSION: Low lung volumes and cardiomegaly with increasing central vascular congestion and bibasil ar acute infiltrate and/or atelectasis.
[2018-10-14] MEDS: amLODIPine 5 MG TAB PO SCH (07:53)
[2018-10-14] MEDS: HEPARIN SODIUM,PORCINE 5,000 UNIT/ML 1 ML VIAL SQ SCH ×2 (07:53→15:21)
[2018-10-14] MEDS: CLOPIDOGREL 75 MG TAB PO SCH (07:53)
[2018-10-14] MEDS: ATORVASTATIN 40 MG TAB PO SCH (07:53)
[2018-10-14] MEDS: ASPIRIN 325 MG TAB PO SCH (07:53)
[2018-10-14] MEDS: buPROPion SR 100 MG TABLET.ER PO SCH (07:55)
[2018-10-14] MEDS ORDERED: FUROSEMIDE 10 MG/ML 2 ML VIAL IV ONE (08:09)
[2018-10-14] MEDS: IPRATROPIUM-ALBUTEROL 3 ML NEB INHALATION SCH ×4 (08:10→19:20)
--- NOTE | 2018-10-14 08:37 | P.PN ---
Subjective Progress Note Date: 10/14/18 Principal diagnosis: Coronary artery disease with left main disease. History of obstructive sleep apnea with CPAP use, remote tobacco dependence with preoperative FEV1 70% of predicted, family history of significant coronary artery disease. POD#2 urgent coronary artery bypass grafting 2 vessels, left internal mammary artery to the left anterior descending artery, radial artery to the obtuse marginal artery, endoscopic harvesting of the left radial artery, epi-aortic ultrasound, intraoperative transesophageal echocardiogram. Postoperative acute blood loss anemia, expected, given hemodilution and cardiopulmonary bypass pump. The patient is currently sitting up in the recliner in no acute distress in the intensive care unit. Remains in normal sinus rhythm. Hemodynamically stable on no inotropes or pressors. Actively using his incentive spirometry. States pain is well controlled on current medication regimen. Denies shortness of breath. No new complaints. Ambulated in the hallway yesterday. Objective - Vital Signs Vital signs: Vital Signs Temp 100 F H 10/14/18 08:00 Pulse 108 H 10/14/18 08:22 Resp 27 H 10/14/18 08:00 BP 124/75 10/13/18 23:30 Pulse Ox 93 L 10/14/18 08:00 Intake & Output 10/13/18 10/14/18 10/14/18 18:59 06:59 18:59 Intake Total 1388.047 412 202 Output Total 1570 1000 165 Balance -181.953 -588 37 Weight 100.5 kg 102.5 kg Intake: IV 750.5 312 52 Albumin Human 5% 250 ml 250 In Empty Bag 1 bag @ 250 mls/hr IVPB Q1HR PRN Rx#: [id number] Diltiazem 125 mg In 10 Sodium Chloride 0.9% 100 ml @ 5 MG/HR 5 mls/hr IV .Q24H [facility] Rx#:[id number] Lactated Ringers 1,000 ml 400 240 40 @ 20 mls/hr IV .Q24H [facility] Rx#:[id number] Nitroglycerin-D5w Pmx 50 6.5 mg In Dextrose/Water 1 250ml.bag @ 5 MCG/MIN 1.5 mls/hr IV .Q24H [facility] Rx#: [id number] Pressure Bag 84 72 12 Intake, IV Titration 37.547 Amount Insulin Regular 100 unit 37.547 In Sodium Chloride 0.9% 100 ml @ Per Protocol IV .Q0M [facility] Rx#:[id number] Oral 600 100 150 Output: Chest Tube Drainage 65 105 75 Chest Tube Left Pleural 35 40 35 Chest Tube Mediastinal 30 65 40 Drainage 10 15 Left Wrist 10 15 Urine 1495 880 90 Other: Voiding Method Indwelling Catheter Indwelling Catheter Indwelling Catheter # Voids 2 ABP, PAP, CO, CI - Last Documented Arterial Blood Pressure 136/59 Pulmonary Artery Pressure 26/11 Cardiac Output 4.6 Cardiac Index 2.1 - Constitutional General appearance: Present: cooperative, no acute distress, obese - Respiratory Details: Lungs sounds diminished bilaterally. Respirations even, nonlabored. Currently on 2 L nasal cannula with oxygen saturation 92%. Able to achieve 1000 mL on his incentive spirometry. Strong cough. Mediastinal chest tube to continuous wall suction, 95 mL serosanguineous drainage overnight, 210 mL in the last 24 hours. Left pleural chest tube to continuous wall suction, 75 mL serosanguineous drainage overnight, 210 mL in the last 24 hours. No air leaks present. - Cardiovascular Details: S1, S2 present. Regular rate and rhythm, sinus rhythm on telemetry. Sternum stable. A/V epicardial pacemaker wires present, grounded. Palpable peripheral pulses bilaterally. Trace generalized edema present. No calf pain or tenderness noted. Right internal jugular Cordis, right radial arterial line present. Heart hugger in place with patient demonstrating appropriate use. Antiembolism stockings, SCDs present. - Gastrointestinal Gastrointestinal Comment(s): Abdomen soft, nontender, nondistended. Active bowel sounds present 4 quadrants. Tolerating diet. Positive flatus, negative bowel movement. - Genitourinary Genitourinary Comment(s): Castelan present draining clear, yellow urine. Output labile last night, was as low as 15 mL/h and as high as 295 mL per hour. - Integumentary Integumentary Comment(s): Skin is warm and dry with evidence of good perfusion. Anterior chest incision well approximated and covered with dry intact dressing. Left radial artery harvest site well approximated, NICK drain present with minimal serosanguineous drainage. Patient has full mobility in his left hand, good cap refill, no num bness or tingling. - Neurologic Neurologic: Present: CNII-XII intact - Musculoskeletal Musculoskeletal: Present: gait normal, strength equal bilaterally - Psychiatric Psychiatric: Present: A&O x's 3, appropriate affect, intact judgment & insight - Allied health notes Allied health notes reviewed: nursing - Labs CBC & Chem 7: 10/14/18 03:58 10/14/18 03:58 Labs: Abnormal Lab Results - Last 24 Hours (Table) 10/12/18 10/13/18 10/13/18 Range/Units 01:45 08:33 09:41 RBC (4.30-5.90) m/uL Hgb (13.0-17.5) gm/dL Hct (39.0-53.0) % Plt Count (150-450) k/uL Neutrophils # (1.3-7.7) k/uL Sodium (137-145) mmol/L Creatinine (0.66-1.25) mg/dL Glucose (74-99) mg/dL POC Glucose (mg/dL) 190 H 212 H (75-99) mg/dL Calcium (8.4-10.2) mg/dL Alkaline Phosphatase (38-126) U/L Total Protein (6.3-8.2) g/dL Albumin (3.5-5.0) g/dL Crossmatch See Detail 10/13/18 10/13/18 10/13/18 Range/Units 10:36 11:39 12:34 RBC (4.30-5.90) m/uL Hgb (13.0-17.5) gm/dL Hct (39.0-53.0) % Plt Count (150-450) k/uL Neutrophils # (1.3-7.7) k/uL Sodium (137-145) mmol/L Creatinine (0.66-1.25) mg/dL Glucose (74-99) mg/dL POC Glucose (mg/dL) 154 H 126 H 122 H (75-99) mg/dL Calcium (8.4-10.2) mg/dL Alkaline Phosphatase (38-126) U/L Total Protein (6.3-8.2) g/dL Albumin (3.5-5.0) g/dL Crossmatch 10/13/18 10/13/18 10/13/18 Range/Units 14:03 15:20 16:18 RBC (4.30-5.90) m/uL Hgb (13.0-17.5) gm/dL Hct (39.0-53.0) % Plt Count (150-450) k/uL Neutrophils # (1.3-7.7) k/uL Sodium (137-145) mmol/L Creatinine (0.66-1.25) mg/dL Glucose (74-99) mg/dL POC Glucose (mg/dL) 134 H 119 H 118 H (75-99) mg/dL Calcium (8.4-10.2) mg/dL Alkaline Phosphatase (38-126) U/L Total Protein (6.3-8.2) g/dL Albumin (3.5-5.0) g/dL Crossmatch 10/13/18 10/13/18 10/14/18 Range/Units 17:51 20:07 03:58 RBC 3.51 L (4.30-5.90) m/uL Hgb 10.4 L (13.0-17.5) gm/dL Hct 30.7 L (39.0-53.0) % Plt Count 122 L (150-450) k/uL Neutrophils # 7.8 H (1.3-7.7) k/uL Sodium (137-145) mmol/L Creatinine (0.66-1.25) mg/dL Glucose (74-99) mg/dL POC Glucose (mg/dL) 119 H 164 H (75-99) mg/dL Calcium (8.4-10.2) mg/dL Alkaline Phosphatase (38-126) U/L Total Protein (6.3-8.2) g/dL Albumin (3.5-5.0) g/dL Crossmatch 10/14/18 Range/Units 03:58 RBC (4.30-5.90) m/uL Hgb (13.0-17.5) gm/dL Hct (39.0-53.0) % Plt Count (150-450) k/uL Neutrophils # (1.3-7.7) k/uL Sodium 135 L (137-145) mmol/L Creatinine 0.63 L (0.66-1.25) mg/dL Glucose 113 H (74-99) mg/dL POC Glucose (mg/dL) (75-99) mg/dL Calcium 8.3 L (8.4-10.2) mg/dL Alkaline Phosphatase 37 L (38-126) U/L Total Protein 5.2 L (6.3-8.2) g/dL Albumin 3.1 L (3.5-5.0) g/dL Crossmatch - Imaging and Cardiology Chest x-ray: report reviewed, image reviewed Assessment and Plan Assessment: 1. Coronary artery disease with significant left main disease, status post 2 vessel CABG 2. Obstructive sleep apnea with home CPAP use 3. Family history of significant coronary artery disease 4. Remote tobacco dependence with preoperative FEV1 78% of predicted 5. Postoperative acute blood loss anemia, expected Plan: 1. Continue aspirin, statin, Plavix, beta sravan therapy. Will increase beta sravan therapy as tolerated. 2. Continue Norvasc for radial artery spasm. Do not discontinue without d iscussing with the surgeon. 3. Wean oxygen as tolerated. Encourage incentive spirometry use 10 times every hour while awake. Encourage continued smoking cessation. 4. Bronchodilators per pulmonology. 5. Increase activity, ambulate as tolerated. PT/OT/cardiac rehab following. 6. Will monitor daily labs and chest x-rays. Electrolyte replacement per protocol. No transfusion. 7. Pain control with current medication regimen. 8. Insulin management per primary care service. 9. Establish peripheral IV, discontinue Cordis, arterial line, NICK. 10. Will discontinue chest tubes today. 11. Discontinue Castelan catheter. Bladder scan every 6 hours, may straight cath for greater than 300 mL residual. 12. GI/DVT prophylaxis. 13. Will place transfer orders for 3 S. cardiac stepdown unit, may transfer when bed available. 14. Discharge planning in progress. Home care ordered. Anticipate discharge to home with home care this weekend. 15. More recommendations to follow based on patient's progress. Time with Patient: Greater than 30
[2018-10-14] MEDS ORDERED: METOPROLOL TARTRATE 25 MG TAB PO STA (08:58)
[2018-10-14] MEDS ORDERED: METOPROLOL TARTRATE 50 MG TAB PO SCH (09:00)
[2018-10-14 11:55] LABS: Glucose,Whole Blood 108 mg/dL (75-99)
--- NOTE | 2018-10-14 15:11 | P.PN ---
Subjective Progress Note Date: 10/14/18 On 10/14/2018 patient is postop day #2. Doing extremely well. He is post two- vessel bypass surgery. All of the chest tube will be removed today. He had a mediastinal and the pleural chest tube on the left. The chest x-ray from today shows some small atelectatic changes in lung bases bilaterally. No evidence of any pneumothorax. The patient's family of any chest pain. Hemodynamically stable. No chest pain. No shortness of breath. No nausea. No vomiting. No abdominal pain. Altered mentation. Heart rhythm is sinus. Objective - Vital Signs Vital signs: Vital Signs Temp 97.5 F L 10/14/18 12:00 Pulse 93 10/14/18 13:00 Resp 19 10/14/18 13:00 BP 104/69 10/14/18 13:00 Pulse Ox 96 10/14/18 13:00 Intake & Output 10/13/18 10/14/18 10/14/18 18:59 06:59 18:59 Intake Total 1388.047 412 499 Output Total 1570 1000 865 Balance -181.953 -588 -366 Weight 100.5 kg 102.5 kg Intake: IV 750.5 312 199 Albumin Human 5% 250 ml 250 In Empty Bag 1 bag @ 250 mls/hr IVPB Q1HR PRN Rx#: [id number] Diltiazem 125 mg In 10 Sodium Chloride 0.9% 100 ml @ 5 MG/HR 5 mls/hr IV .Q24H [facility] Rx#:[id number] Lactated Ringers 1,000 ml 400 240 160 @ 20 mls/hr IV .Q24H [facility] Rx#:[id number] Nitroglycerin-D5w Pmx 50 6.5 mg In Dextrose/Water 1 250ml.bag @ 5 MCG/MIN 1.5 mls/hr IV .Q24H [facility] Rx#: [id number] Pressure Bag 84 72 39 Intake, IV Titration 37.547 Amount Insulin Regular 100 unit 37.547 In Sodium Chloride 0.9% 100 ml @ Per Protocol IV .Q0M [facility] Rx#:[id number] Oral 600 100 300 Output: Chest Tube Drainage 65 105 75 Chest Tube Left Pleural 35 40 35 Chest Tube Mediastinal 30 65 40 Drainage 10 15 Left Wrist 10 15 Urine 1495 880 790 Other: Voiding Method Indwelling Catheter Indwelling Catheter Indwelling Catheter # Voids 2 ABP, PAP, CO, CI - Last Documented Arterial Blood Pressure 140/63 Pulmonary Artery Pressure 26/11 Cardiac Output 4.6 Cardiac Index 2.1 - Exam - Constitutional General appearance: Present: cooperative, no acute distress, obese - Respiratory Details: Lungs sounds diminished bilaterally. Respirations even, nonlabored. Currently on 4 L nasal cannula with oxygen saturation 94%. Able to achieve 1000 mL on his incentive spirometry. Strong cough. Mediastinal chest tube to continuous wall suction, 150 mL serosanguineous drainage overnight, 250 mL since surgery. Left pleural chest tube to continuous wall suction, 65 mL serosanguineous drainage overnight, 100 mL since surgery. No air leaks present. - Cardiovascular Details: S1, S2 present. Regular rate and rhythm, sinus rhythm on telemetry. Sternum stable. A/V epicardial pacemaker wires present, connected to generator, DDD mode with backup rate 50 bpm. Palpable peripheral pulses bilaterally. No edema present. No calf pain or tenderness noted. Right internal jugular Pickering/Cordis, right radial arterial line present. Last CO/CI 4.6/2.1 on no inotropes or pressors. Heart hugger in place with patient demonstrating appropriate use. Antiembolism stockings, SCDs present. - Gastrointestinal Gastrointestinal Comment(s): Abdomen soft, nontender, nondistended. Hypoactive bowel sounds present 4 quadrants. Tolerating clear liquids. Positive belching, positive flatus. - Genitourinary Genitourinary Comment(s): Castelan present draining clear, yellow urine. Output was 35-70 mL/h overnight, down to 25 mL/h this morning. - Integumentary Integumentary Comment(s): Skin is warm and dry with evidence of good perfusion. Anterior chest incision well approximated and covered with dry intact dressing. Left radial artery harvest site well approximated, NICK drain present with minimal serosanguineous drainage. Patient has full mobility in his left hand, good cap refill, no numbness or tingling. - Neurologic Neurologic: Present: CNII-XII intact - Musculoskeletal Musculoskeletal: Present: gait normal, strength equal bilaterally - Psychiatric Psychiatric: Present: A&O x's 3, appropriate affect, intact judgment & insight - Labs CBC & Chem 7: 10/14/18 03:58 10/14/18 03:58 Labs: Abnormal Lab Results - Last 24 Hours (Table) 10/12/18 10/13/18 10/13/18 Range/Units 01:45 15:20 16:18 RBC (4.30-5.90) m/uL Hgb (13.0-17.5) gm/dL Hct (39.0-53.0) % Plt Count (150-450) k/uL Neutrophils # (1.3-7.7) k/uL Sodium (137-145) mmol/L Creatinine (0.66-1.25) mg/dL Glucose (74-99) mg/dL POC Glucose (mg/dL) 119 H 118 H (75-99) mg/dL Calcium (8.4-10.2) mg/dL Alkaline Phosphatase (38-126) U/L Total Protein (6.3-8.2) g/dL Albumin (3.5-5.0) g/dL Crossmatch See Detail 10/13/18 10/13/18 10/14/18 Range/Units 17:51 20:07 03:58 RBC 3.51 L (4.30-5.90) m/uL Hgb 10.4 L (13.0-17.5) gm/dL Hct 30.7 L (39.0-53.0) % Plt Count 122 L (150-450) k/uL Neutrophils # 7.8 H (1.3-7.7) k/uL Sodium (137-145) mmol/L Creatinine (0.66-1.25) mg/dL Glucose (74-99) mg/dL POC Glucose (mg/dL) 119 H 164 H (75-99) mg/dL Calcium (8.4-10.2) mg/dL Alkaline Phosphatase (38-126) U/L Total Protein (6.3-8.2) g/dL Albumin (3.5-5.0) g/dL Crossmatch 10/14/18 10/14/18 Range/Units 03:58 11:53 RBC (4.30-5.90) m/uL Hgb (13.0-17.5) gm/dL Hct (39.0-53.0) % Plt Count (150-450) k/uL Neutrophils # (1.3-7.7) k/uL Sodium 135 L (137-145) mmol/L Creatinine 0.63 L (0.66-1.25) mg/dL Glucose 113 H (74-99) mg/dL POC Glucose (mg/dL) 108 H (75-99) mg/dL Calcium 8.3 L (8.4-10.2) mg/dL Alkaline Phosphatase 37 L (38-126) U/L Total Protein 5.2 L (6.3-8.2) g/dL Albumin 3.1 L (3.5-5.0) g/dL Crossmatch Assessment and Plan Plan: 1 coronary artery disease, symptomatic and the patient underwent two-vessel bypass surgery with MALHOTRA to LAD and a radial artery graft to obtuse marginal branch. The patient has postop day #2 2 post thoracotomy , extubated the patient is currently on 4 L oxygen by nasal cannula. Output from the chest tube is minimal and the patient has no pneumotho rax. 3 obstructive sleep apnea with previous history of CPAP use 4 preop FEV1 of 70% and the patient is a ex-smoker. Plan Remove all of the chest tubes. Discontinue the a line. Discontinue the Castelan catheter. Cardiac medication was noted. Continue using incentive spirometer. Wean off FiO2 as tolerated. We'll continue to follow.
--- NOTE | 2018-10-14 15:20 | P.PN ---
Subjective Patient is status post CABG postoperative day one, clinically doing well patient is extubated patient still has 2 chest tubes currently feeling well sitting on the chair patient's Mobile-Alejandro was removed, remains on insulin drip was started on oral Norvasc for radial artery spasm of IV insulin will be discontinued patient will be started on sliding scale 10/14/2018 Chest use was removed. No overnight events. Constitutional: Denied any fatigue denied any fever. Cardio vascular: denied any chest pain, palpitations Gastrointestinal denied any nausea vomiting Pulmonary: Denied any shortness of breath cough Neurologic denied any new focal deficits All inpatient medications were reviewed and appropriate changes in these medications as dictated in the interval history and assessment and plan. Objective - Vital Signs Vital signs: Vital Signs Temp 97.5 F L 10/14/18 12:00 Pulse 92 10/14/18 15:00 Resp 18 10/14/18 15:00 BP 104/64 10/14/18 15:00 Pulse Ox 94 L 10/14/18 15:00 Intake & Output 10/13/18 10/14/18 10/14/18 18:59 06:59 18:59 Intake Total 1388.047 412 499 Output Total 1570 1000 865 Balance -181.953 -588 -366 Weight 100.5 kg 102.5 kg Intake: IV 750.5 312 199 Albumin Human 5% 250 ml 250 In Empty Bag 1 bag @ 250 mls/hr IVPB Q1HR PRN Rx#: [id number] Diltiazem 125 mg In 10 Sodium Chloride 0.9% 100 ml @ 5 MG/HR 5 mls/hr IV .Q24H [facility] Rx#:[id number] Lactated Ringers 1,000 ml 400 240 160 @ 20 mls/hr IV .Q24H [facility] Rx#:[id number] Nitroglycerin-D5w Pmx 50 6.5 mg In Dextrose/Water 1 250ml.bag @ 5 MCG/MIN 1.5 mls/hr IV .Q24H [facility] Rx#: [id number] Pressure Bag 84 72 39 Intake, IV Titration 37.547 Amount Insulin Regular 100 unit 37.547 In Sodium Chloride 0.9% 100 ml @ Per Protocol IV .Q0M [facility] Rx#:[id number] Oral 600 100 300 Output: Chest Tube Drainage 65 105 75 Chest Tube Left Pleural 35 40 35 Chest Tube Mediastinal 30 65 40 Drainage 10 15 Left Wrist 10 15 Urine 1495 880 790 Other: Voiding Method Indwelling Catheter Indwelling Catheter Indwelling Catheter # Voids 2 ABP, PAP, CO, CI - Last Documented Arterial Blood Pressure 140/63 Pulmonary Artery Pressure 26/11 Cardiac Output 4.6 Cardiac Index 2.1 - Exam PHYSICAL EXAMINATION: GENERAL: She is alert oriented 3 still has chest tubes feeling well HEENT: Pupils are round and equally reacting to light. EOMI. No scleral icterus. No conjunctival pallor. Normocephalic, atraumatic. No pharyngeal erythema. No thyromegaly. CARDIOVASCULAR: S1 and S2 present. No murmurs, rubs, or gallops. PULMONARY: Chest is clear to auscultation, no wheezing or crackles. Shouldn't has chest tubes as mentioned above ABDOMEN: Soft, nontender, nondistended, normoactive bowel sounds. No palpable o rganomegaly. MUSCULOSKELETAL: No joint swelling or deformity. EXTREMITIES: No cyanosis, clubbing, or pedal edema. NEUROLOGICAL: Unable to assess SKIN: No rashes. - Labs CBC & Chem 7: 10/14/18 03:58 10/14/18 03:58 Labs: Abnormal Lab Results - Last 24 Hours (Table) 10/12/18 10/13/18 10/13/18 Range/Units 01:45 15:20 16:18 RBC (4.30-5.90) m/uL Hgb (13.0-17.5) gm/dL Hct (39.0-53.0) % Plt Count (150-450) k/uL Neutrophils # (1.3-7.7) k/uL Sodium (137-145) mmol/L Creatinine (0.66-1.25) mg/dL Glucose (74-99) mg/dL POC Glucose (mg/dL) 119 H 118 H (75-99) mg/dL Calcium (8.4-10.2) mg/dL Alkaline Phosphatase (38-126) U/L Total Protein (6.3-8.2) g/dL Albumin (3.5-5.0) g/dL Crossmatch See Detail 10/13/18 10/13/18 10/14/18 Range/Units 17:51 20:07 03:58 RBC 3.51 L (4.30-5.90) m/uL Hgb 10.4 L (13.0-17.5) gm/dL Hct 30.7 L (39.0-53.0) % Plt Count 122 L (150-450) k/uL Neutrophils # 7.8 H (1.3-7.7) k/uL Sodium (137-145) mmol/L Creatinine (0.66-1.25) mg/dL Glucose (74-99) mg/dL POC Glucose (mg/dL) 119 H 164 H (75-99) mg/dL Calcium (8.4-10.2) mg/dL Alkaline Phosphatase (38-126) U/L Total Protein (6.3-8.2) g/dL Albumin (3.5-5.0) g/dL Crossmatch 10/14/18 10/14/18 Range/Units 03:58 11:53 RBC (4.30-5.90) m/uL Hgb (13.0-17.5) gm/dL Hct (39.0-53.0) % Plt Count (150-450) k/uL Neutrophils # (1.3-7.7) k/uL Sodium 135 L (137-145) mmol/L Creatinine 0.63 L (0.66-1.25) mg/dL Glucose 113 H (74-99) mg/dL POC Glucose (mg/dL) 108 H (75-99) mg/dL Calcium 8.3 L (8.4-10.2) mg/dL Alkaline Phosphatase 37 L (38-126) U/L Total Protein 5.2 L (6.3-8.2) g/dL Albumin 3.1 L (3.5-5.0) g/dL Crossmatch Assessment and Plan Plan: -Unstable angina coronary artery disease with left main stenosis status post bypass grafting patient is doing well postoperatively chest tubes were removed. Patient is on amiodarone drip -Postoperative respiratory failure question will be extubated later today off sedation. -hypertension patient is on Norvasc which is being used for vaso-spasm as well. -Obstructive sleep apnea -Nicotine dependence Plan is continue with present management . Continue with the sliding scale insulin.
[2018-10-14 17:23] LABS: Glucose,Whole Blood 81 mg/dL (75-99)
--- NOTE | 2018-10-14 17:45 | P.PN ---
Subjective Progress Note Date: 10/14/18 This is a 53-year-old gentleman who recently had a strongly positive stress echocardiogram. 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 His undergone aortocoronary bypass surgery with the MALHOTRA graft to the LAD and radial graft to the OM branch. Patient is sitting up in the chair. He does complain of chest pain which is postsurgical. Patient is maintaining sinus rhythm. Patient still has some chest tubes and also Fallentimber-Alejandro catheter from overall he patient symptomatically stable. No arrhythmias detected 10/31/2018: Patient is status post aortic valve bypass surgery. He is progressing well. Chest keeps were taken out. Complaints of mild chest discomfort. Maintaining sinus rhythm. No arrhythmias detected. Lungs appeared to be clear. Heart is regular. Patient could be transferred to telemetry unit. Possible discharge home in about 24-48 hours Objective - Vital Signs Vital signs: Vital Signs Temp 98.2 F 10/14/18 16:00 Pulse 99 10/14/18 17:00 Resp 19 10/14/18 17:00 BP 112/69 10/14/18 17:00 Pulse Ox 92 L 10/14/18 17:00 Intake & Output 10/13/18 10/14/18 10/14/18 18:59 06:59 18:59 Intake Total 1388.047 412 499 Output Total 1570 1000 865 Balance -181.953 -588 -366 Weight 100.5 kg 102.5 kg Intake: IV 750.5 312 199 Albumin Human 5% 250 ml 250 In Empty Bag 1 bag @ 250 mls/hr IVPB Q1HR PRN Rx#: [id number] Diltiazem 125 mg In 10 Sodium Chloride 0.9% 100 ml @ 5 MG/HR 5 mls/hr IV .Q24H [facility] Rx#:[id number] Lactated Ringers 1,000 ml 400 240 160 @ 20 mls/hr IV .Q24H [facility] Rx#:[id number] Nitroglycerin-D5w Pmx 50 6.5 mg In Dextrose/Water 1 250ml.bag @ 5 MCG/MIN 1.5 mls/hr IV .Q24H [facility] Rx#: [id number] Pressure Bag 84 72 39 Intake, IV Titration 37.547 Amount Insulin Regular 100 unit 37.547 In Sodium Chloride 0.9% 100 ml @ Per Protocol IV .Q0M [facility] Rx#:[id number] Oral 600 100 300 Output: Chest Tube Drainage 65 105 75 Chest Tube Left Pleural 35 40 35 Chest Tube Mediastinal 30 65 40 Drainage 10 15 Left Wrist 10 15 Urine 1495 880 790 Other: Voiding Method Indwelling Catheter Indwelling Catheter Bedside Commode # Voids 2 ABP, PAP, CO, CI - Last Documented Arterial Blood Pressure 140/63 Pulmonary Artery Pressure 26/11 Cardiac Output 4.6 Cardiac Index 2.1 - Exam GENERAL EXAM: Patient is alert and oriented and doesn't appear to be in any acute distress HEENT: Normocephalic. Normal reaction of pupils, equal size, normal range of extraocular motion. No erythema or exudates in the throat. NECK: No masses, no nuchal rigidity. CHEST: Post CABG and postsurgical LUNGS: Rales at both bases HEART: S1 and S2 normal with no audible mumurs or gallops. Regular rhythm, femorals equal on both sides.. ABDOMEN: No hepatosplenomegaly, normal bowel sounds, no guarding or rigidity. SKIN: No rashes CENTRAL NERVOUS SYSTEM: No focal deficits. EXTREMITIES: No cyanosis, clubbing or edema. - Labs CBC & Chem 7: 10/14/18 03:58 10/14/18 03:58 Labs: Abnormal Lab Results - Last 24 Hours (Table) 10/12/18 10/13/18 10/13/18 Range/Units 01:45 17:51 20:07 RBC (4.30-5.90) m/uL Hgb (13.0-17.5) gm/dL Hct (39.0-53.0) % Plt Count (150-450) k/uL Neutrophils # (1.3-7.7) k/uL Sodium (137-145) mmol/L Creatinine (0.66-1.25) mg/dL Glucose (74-99) mg/dL POC Glucose (mg/dL) 119 H 164 H (75-99) mg/dL Calcium (8.4-10.2) mg/dL Alkaline Phosphatase (38-126) U/L Total Protein (6.3-8.2) g/dL Albumin (3.5-5.0) g/dL Crossmatch See Detail 10/14/18 10/14/18 10/14/18 Range/Units 03:58 03:58 11:53 RBC 3.51 L (4.30-5.90) m/uL Hgb 10.4 L (13.0-17.5) gm/dL Hct 30.7 L (39.0-53.0) % Plt Count 122 L (150-450) k/uL Neutrophils # 7.8 H (1.3-7.7) k/uL Sodium 135 L (137-145) mmol/L Creatinine 0.63 L (0.66-1.25) mg/dL Glucose 113 H (74-99) mg/dL POC Glucose (mg/dL) 108 H (75-99) mg/dL Calcium 8.3 L (8.4-10.2) mg/dL Alkaline Phosphatase 37 L (38-126) U/L Total Protein 5.2 L (6.3-8.2) g/dL Albumin 3.1 L (3.5-5.0) g/dL Crossmatch Assessment and Plan (1) Left main coronary artery disease Current Visit: Yes Status: Acute Code(s): I25.10 - ATHSCL HEART DISEASE OF [place] CORONARY ARTERY W/O ANG PCTRS SNOMED Code(s): 285399349 (2) S/P CABG (coronary artery bypass graft) Current Visit: Yes Status: Acute Code(s): Z95.1 - PRESENCE OF AORTOCORONARY BYPASS GRAFT SNOMED Code(s): 350591649 Plan: Patient is progressing well. Continue current medical therapy. Discharge patient in 24 hours
[2018-10-14 20:54] LABS: Glucose,Whole Blood 101 mg/dL (75-99)
[2018-10-14] MEDS: SENNOSIDES-DOCUSATE SODIUM 1 EACH TAB PO SCH (21:20)
[2018-10-14] MEDS: METOPROLOL TARTRATE 25 MG TAB PO SCH (21:20)
[2018-10-14] MEDS: FINASTERIDE 5 MG TAB PO SCH (21:21)
[2018-10-15] MEDS: KETOROLAC 30 MG/ML 1 ML VIAL IVP SCH ×5 (00:35→23:43)
[2018-10-15] MEDS: HEPARIN SODIUM,PORCINE 5,000 UNIT/ML 1 ML VIAL SQ SCH ×4 (00:35→23:42)
[2018-10-15 05:58] LABS: African American GFR (CKD) >90 (>60 ml/min/1.73 sqM); Anion Gap 6 mmol/L; Blood Urea Nitrogen 17 mg/dL (9-20); Calcium 8.3 mg/dL (8.4-10.2); Carbon Dioxide 23 mmol/L (22-30); Chloride 109 mmol/L (98-107); Glucose 87 mg/dL (74-99); Sodium 138 mmol/L (137-145)
[2018-10-15 06:28] LABS: HCT 33.7 % (39.0-53.0); HGB 10.6 gm/dL (13.0-17.5); MCH 28.4 pg (25.0-35.0); MCHC 31.6 g/dL (31.0-37.0); MCV 89.7 fL (80.0-100.0); Mean Platelet Volume 7.5; Platelet Count 177 k/uL (150-450); RBC 3.75 m/uL (4.30-5.90); RDW 13.9 % (11.5-15.5); WBC 11.2 k/uL (3.8-10.6)
[2018-10-15] MEDS: INSULIN ASPART (NovoLOG) 100 UNIT/ML VIAL SQ SCH ×4 (06:44→20:18)
[2018-10-15] MEDS: PANTOPRAZOLE 40 MG TABLET PO SCH (07:01)
--- NOTE | 2018-10-15 08:18 | XR ---
EXAMINATION TYPE: XR chest 2V DATE OF EXAM: 10/15/2018 COMPARISON: 10/14/2018 HISTORY: 53 year-old male post cardiac surgery TECHNIQUE: PA and lateral views FINDINGS: Median sternotomy wires are present with post-CABG clips in the mediastinum. Left-sided chest tube rodriguez s been removed in the interval. No appreciable pneumothorax. Mediastinal drains have also been remove d. Some patchy left basilar opacity remains. Strandy atelectasis at the right base. Heart mildly enla rged. Improved lung volumes. IMPRESSION: Removal of the left-sided chest tube and mediastinal drains. Persistent patchy left basilar atelectas is and/or infiltrate. Overall improvement in lung volumes.
[2018-10-15] MEDS: IPRATROPIUM-ALBUTEROL 3 ML NEB INHALATION SCH ×4 (08:33→20:03)
[2018-10-15] MEDS: ATORVASTATIN 40 MG TAB PO SCH (08:34)
[2018-10-15] MEDS: buPROPion SR 100 MG TABLET.ER PO SCH (08:34)
[2018-10-15] MEDS: ASPIRIN 325 MG TAB PO SCH (08:34)
[2018-10-15] MEDS: METOPROLOL TARTRATE 25 MG TAB PO SCH (08:34)
[2018-10-15] MEDS: CLOPIDOGREL 75 MG TAB PO SCH (08:34)
[2018-10-15] MEDS ORDERED: FUROSEMIDE 10 MG/ML 2 ML VIAL IV ONE (09:59)
--- NOTE | 2018-10-15 11:18 | P.PN ---
Subjective Progress Note Date: 10/15/18 Principal diagnosis: Coronary artery disease with left main disease. History of obstructive sleep apnea with CPAP use, remote tobacco dependence with preoperative FEV1 70% of predicted, family history of significant coronary artery disease. POD#3 urgent coronary artery bypass grafting 2 vessels, left internal mammary artery to the left anterior descending coronary artery, radial artery to the obtuse marginal coronary artery, endoscopic harvesting of the left radial artery, epi-aortic ultrasound and intraoperative transesophageal echocardiogram. Postoperative acute blood loss anemia, an expected outcome given hemodilution and cardiopulmonary bypass pump. The patient is currently sitting up to the bedside chair in the intensive care unit. He is in no acute distress. He denies any complaints of pain or shortness of breath at this time. Remains hemodynamically stable and is currently on no inotropic or pressor support. Oxygen saturations are 95% on room air. Achieving 1000 mL on his incentive spirometry. He reports that he has been ambulating in the intensive care unit hallway with minimal assistance. Objective - Vital Signs Vital signs: Vital Signs Temp 98.3 F 10/15/18 08:00 Pulse 97 10/15/18 08:44 Resp 18 10/15/18 08:00 BP 101/68 10/15/18 08:00 Pulse Ox 94 L 10/15/18 08:00 Intake & Output 10/14/18 10/15/18 10/15/18 18:59 06:59 18:59 Intake Total 499 250 Output Total 865 775 Balance -366 -775 250 Weight 100.4 kg Intake: IV 199 Lactated Ringers 1,000 ml 160 @ 20 mls/hr IV .Q24H [facility] Rx#:[id number] Pressure Bag 39 Oral 300 250 Output: Chest Tube Drainage 75 Chest Tube Left Pleural 35 Chest Tube Mediastinal 40 Urine 790 775 Other: Voiding Method Bedside Commode Urinal Urinal # Voids 1 1 ABP, PAP, CO, CI - Last Documented Arterial Blood Pressure 140/63 Pulmonary Artery Pressure 26/11 Cardiac Output 4.6 Cardiac Index 2.1 - Constitutional General appearance: Present: cooperative, no acute distress, obese - Respiratory Details: Lungs sounds essentially clear to his bilateral upper lobes, few scattered crackles to bilateral bases. Respirations are symmetrical and nonlabored. Oxygen saturation is 95% on room air. Achieving 1000 mL on his incentive spirometry. - Cardiovascular Details: Regular rhythm and rate. S1 and S2 present, negative for S3, gallop or murmur. Bedside telemetry showing normal sinus rhythm heart rate 97. Sternum is stable. Atrial and ventricular epicardial pacemaker wires in place and grounded. Trace edema to his bilateral lower extremities. Heart hugger is in place and he is demonstrating appropriate use. Knee-high TOD hose and sequential compression devices in place was bilateral lower extremities. - Gastrointestinal Gastrointestinal Comment(s): Abdomen is soft, nontender and nondistended. Active bowel sounds present in all 4 abdominal quadrants. Tolerating oral intake. Passing flatus. No guarding or rigidity. No organomegaly. - Genitourinary Genitourinary Comment(s): Voiding clear yellow urine. 775 mL output in the last 8 hours. - Integumentary Integumentary Comment(s): Skin is warm and dry. No clubbing or cyanosis is present. Midline sternal incision is clean, dry and well approximated. Exofin dressing is clean, dry and intact. No drainage or redness is present. Left radial artery harvest sites clean, dry and intact. No redness or drainage is present. No numbness or tingling to his left hand. Left hand is warm to touch with immediate capillary refill. - Neurologic Neurologic: Present: CNII-XII intact - Musculoskeletal Musculoskeletal: Present: gait normal, strength equal bilaterally - Psychiatric Psychiatric: Present: A&O x's 3, appropriate affect, intact judgment & insight - Allied health notes Allied health notes reviewed: nursing - Labs CBC & Chem 7: 10/15/18 06:13 10/15/18 05:26 Labs: Abnormal Lab Results - Last 24 Hours (Table) 10/14/18 10/14/18 10/15/18 Range/Units 11:53 20:51 05:26 WBC (3.8-10.6) k/uL RBC (4.30-5.90) m/uL Hgb (13.0-17.5) gm/dL Hct (39.0-53.0) % Chloride 109 H (98-107) mmol/L Creatinine 0.61 L (0.66-1.25) mg/dL POC Glucose (mg/dL) 108 H 101 H (75-99) mg/dL Calcium 8.3 L (8.4-10.2) mg/dL 06/14/19 Range/Units 06:13 WBC 11.2 H (3.8-10.6) k/uL RBC 3.75 L (4.30-5.90) m/uL Hgb 10.6 L (13.0-17.5) gm/dL Hct 33.7 L (39.0-53.0) % Chloride (98-107) mmol/L Creatinine (0.66-1.25) mg/dL POC Glucose (mg/dL) (75-99) mg/dL Calcium (8.4-10.2) mg/dL - Imaging and Cardiology Chest x-ray: report reviewed, image reviewed Assessment and Plan Assessment: 1. Coronary artery disease with significant left main disease, status post 2 vessel CABG 2. Obstructive sleep apnea with home CPAP use 3. Family history of significant coronary artery disease 4. Remote tobacco dependence with preoperative FEV1 78% of predicted 5. Postoperative acute blood loss anemia, expected Plan: 1. Continue aspirin, statin, Plavix and beta sravan. Will increase beta sravan as tolerated. 2. Continue Norvasc for radial artery spasm prophylaxis. Do not discontinue without discussing with the cardiothoracic surgeon. 3. Encourage incentive spirometry use 10 times every hour while awake. Encourage continued smoking cessation. 4. Bronchodilators per pulmonology. 5. Increase activity, ambulate as tolerated. PT/OT/cardiac rehab following. 6. Will monitor daily labs and chest x-rays. Electrolyte replacement per protocol. No transfusion. 7. Pain control with current medication regimen. 8. Insulin management per primary care service. 9. Pull atrial and ventricular epicardial pacemaker wires. Bed rest for 1 hour post epicardial pacemaker wire removal. 10. GI/DVT prophylaxis. 11. Transfer orders for 3 S. cardiac stepdown unit, may transfer when bed available. 12. Discharge planning in progress. Home care ordered. Anticipate discharge to home with home care within the next 24 hours. 13. More recommendations to follow based on patient's clinical course. Time with Patient: Greater than 30
[2018-10-15 12:07] LABS: Glucose,Whole Blood 106 mg/dL (75-99)
--- NOTE | 2018-10-15 13:20 | P.PN ---
Subjective Progress Note Date: 10/15/18 On 10/15/2018, the patient is postop day #3. The patient is post two-vessel bypass surgery. The patient is doing extremely well. Sternum stable clean and intact. No chest pain. All of the chest is of removed. Today's chest x-ray shows expansion of the lungs bilaterally and there are some atelectatic changes in lung bases. The patient is achieving more than 1000 on his incentive spirometer. His emanating in the hallway. Currently on room air oxygen. He is hemodynamically stable on no pressors. No nausea. No vomiting. No abdominal pain. No chest pain. All of the surgical wounds as a direct clean and intact. All of the catheters including the [place]-Alejandro catheter and outline catheter has been removed. His cardiac rhythm is sinus. Objective - Vital Signs Vital signs: Vital Signs Temp 98.2 F 10/15/18 12:00 Pulse 83 10/15/18 12:06 Resp 19 10/15/18 12:00 BP 112/71 10/15/18 12:00 Pulse Ox 94 L 10/15/18 12:00 Intake & Output 10/14/18 10/15/18 10/15/18 18:59 06:59 18:59 Intake Total 499 400 Output Total 865 775 Balance -366 -775 400 Weight 100.4 kg Intake: IV 199 Lactated Ringers 1,000 ml 160 @ 20 mls/hr IV .Q24H [facility] Rx#:[id number] Pressure Bag 39 Oral 300 400 Output: Chest Tube Drainage 75 Chest Tube Left Pleural 35 Chest Tube Mediastinal 40 Urine 790 775 Other: Voiding Method Bedside Commode Urinal Urinal # Voids 1 1 2 # Bowel Movements 1 ABP, PAP, CO, CI - Last Documented Arterial Blood Pressure 140/63 Pulmonary Artery Pressure 26/11 Cardiac Output 4.6 Cardiac Index 2.1 - Exam - Constitutional General appearance: Present: cooperative, no acute distress, obese - Respiratory Details: Lungs sounds diminished bilaterally. - Cardiovascular Details: S1, S2 present. Regular rate and rhythm, sinus rhythm on telemetry. Sternum stable. A/V epicardial pacemaker wires grounded - Gastrointestinal Gastrointestinal Comment(s): Abdomen soft, nontender, nondistended. Hypoactive bowel sounds present 4 quadrants. Tolerating clear liquids. Positive belching, positive flatus. - Genitourinary Genitourinary Comment(s): Castelan catheter removed - Integumentary Integumentary Comment(s): Skin is warm and dry with evidence of good perfusion. Anterior chest incision well approximated and covered with dry intact dressing. - Neurologic Neurologic: Present: CNII-XII intact - Musculoskeletal Musculoskeletal: Present: gait normal, strength equal bilaterally - Psychiatric Psychiatric: Present: A&O x's 3, appropriate affect, intact judgment & insight - Labs CBC & Chem 7: 10/15/18 06:13 10/15/18 05:26 Labs: Abnormal Lab Results - Last 24 Hours (Table) 10/14/18 10/15/18 10/15/18 Range/Units 20:51 05:26 06:13 WBC 11.2 H (3.8-10.6) k/uL RBC 3.75 L (4.30-5.90) m/uL Hgb 10.6 L (13.0-17.5) gm/dL Hct 33.7 L (39.0-53.0) % Chloride 109 H (98-107) mmol/L Creatinine 0.61 L (0.66-1.25) mg/dL POC Glucose (mg/dL) 101 H (75-99) mg/dL Calcium 8.3 L (8.4-10.2) mg/dL 10/15/18 Range/Units 12:04 WBC (3.8-10.6) k/uL RBC (4.30-5.90) m/uL Hgb (13.0-17.5) gm/dL Hct (39.0-53.0) % Chloride (98-107) mmol/L Creatinine (0.66-1.25) mg/dL POC Glucose (mg/dL) 106 H (75-99) mg/dL Calcium (8.4-10.2) mg/dL Assessment and Plan Plan: 1 coronary artery disease, symptomatic and the patient underwent two-vessel byp ass surgery with MALHOTRA to LAD and a radial artery graft to obtuse marginal branch. The patient has postop day #2 2 post thoracotomy , extubated the patient is currently on 4 L oxygen by nasal cannula. Output from the chest tube is minimal and the patient has no pneumothorax. 3 obstructive sleep apnea with previous history of CPAP use 4 preop FEV1 of 70% and the patient is a ex-smoker. Plan Remove all of the chest tubes. Discontinue the a line. Discontinue the Castelan catheter. Cardiac medication was noted. Continue using incentive spirometer. Wean off FiO2 as tolerated. We'll continue to follow.
--- NOTE | 2018-10-15 14:07 | P.PN ---
Subjective Patient is status post CABG postoperative day one, clinically doing well patient is extubated patient still has 2 chest tubes currently feeling well sitting on the chair patient's [place]-Alejandro was removed, remains on insulin drip was started on oral Norvasc for radial artery spasm of IV insulin will be discontinued patient will be started on sliding scale 10/14/2018 Chest use was removed. No overnight events. 10/15/2018 No overnight events patient probably will be discharged Tomorrow Constitutional: Denied any fatigue denied any fever. Cardio vascular: denied any chest pain, palpitations Gastrointestinal denied any nausea vomiting Pulmonary: Denied any shortness of breath cough Neurologic denied any new focal deficits All inpatient medications were reviewed and appropriate changes in these medications as dictated in the interval history and assessment and plan. Objective - Vital Signs Vital signs: Vital Signs Temp 98.2 F 10/15/18 12:00 Pulse 88 10/15/18 12:20 Resp 19 10/15/18 12:00 BP 112/71 10/15/18 12:00 Pulse Ox 94 L 10/15/18 12:00 Intake & Output 10/14/18 10/15/18 10/15/18 18:59 06:59 18:59 Intake Total 499 400 Output Total 865 775 Balance -366 -775 400 Weight 100.4 kg Intake: IV 199 Lactated Ringers 1,000 ml 160 @ 20 mls/hr IV .Q24H [facility] Rx#:[id number] Pressure Bag 39 Oral 300 400 Output: Chest Tube Drainage 75 Chest Tube Left Pleural 35 Chest Tube Mediastinal 40 Urine 790 775 Other: Voiding Method Bedside Commode Urinal Urinal # Voids 1 1 2 # Bowel Movements 1 ABP, PAP, CO, CI - Last Documented Arterial Blood Pressure 140/63 Pulmonary Artery Pressure 26/11 Cardiac Output 4.6 Cardiac Index 2.1 - Exam PHYSICAL EXAMINATION: GENERAL: She is alert oriented 3 still has chest tubes feeling well HEENT: Pupils are round and equally reacting to light. EOMI. No scleral icterus. No conjunctival pallor. Normocephalic, atraumatic. No pharyngeal erythema. No thyromegaly. CARDIOVASCULAR: S1 and S2 present. No murmurs, rubs, or gallops. PULMONARY: Chest is clear to auscultation, no wheezing or crackles. Shouldn't has chest tubes as mentioned above ABDOMEN: Soft, nontender, nondistended, normoactive bowel sounds. No palpable organomegaly. MUSCULOSKELETAL: No joint swelling or deformity. EXTREMITIES: No cyanosis, clubbing, or pedal edema. NEUROLOGICAL: Unable to assess SKIN: No rashes. - Labs CBC & Chem 7: 10/15/18 06:13 10/15/18 05:26 Labs: Abnormal Lab Results - Last 24 Hours (Table) 10/14/18 10/15/18 10/15/18 Range/Units 20:51 05:26 06:13 WBC 11.2 H (3.8-10.6) k/uL RBC 3.75 L (4.30-5.90) m/uL Hgb 10.6 L (13.0-17.5) gm/dL Hct 33.7 L (39.0-53.0) % Chloride 109 H (98-107) mmol/L Creatinine 0.61 L (0.66-1.25) mg/dL POC Glucose (mg/dL) 101 H (75-99) mg/dL Calcium 8.3 L (8.4-10.2) mg/dL 10/15/18 Range/Units 12:04 WBC (3.8-10.6) k/uL RBC (4.30-5.90) m/uL Hgb (13.0-17.5) gm/dL Hct (39.0-53.0) % Chloride (98-107) mmol/L Creatinine (0.66-1.25) mg/dL POC Glucose (mg/dL) 106 H (75-99) mg/dL Calcium (8.4-10.2) mg/dL Assessment and Plan Plan: -Unstable angina coronary artery disease with left main stenosis status post bypass grafting patient is doing well postoperatively chest tubes were removed. Patient is on amiodarone drip -hypertension patient is on Norvasc which is being used for vaso-spasm as well. -Obstructive sleep apnea -Nicotine dependence Plan is continue with present management . Continue with the sliding scale insulin. No further recommendations for medicine
[2018-10-15] MEDS: amLODIPine 5 MG TAB PO SCH (14:32)
--- NOTE | 2018-10-15 15:40 | P.PN ---
Subjective Progress Note Date: 10/15/18 This is a 53-year-old gentleman who recently had a strongly positive stress echocardiogram. 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 His undergone aortocoronary bypass surgery with the MALHOTRA graft to the LAD and radial graft to the OM branch. Patient is sitting up in the chair. He does complain of chest pain which is postsurgical. Patient is maintaining sinus rhythm. Patient still has some chest tubes and also [place]-Ale[place]andro catheter from overall he patient symptomatically stable. No arrhythmias detected 10/14/2018: Patient is status post bypass surgery. He is progressing well. Chest keeps were taken out. Complaints of mild chest discomfort. Maintaining sinus rhythm. No arrhythmias detected. Lungs appeared to be clear. Heart is regular. Patient could be transferred to telemetry unit. Possible discharge home in about 24-48 hours. 10/15/2018: This patient is status post aortocoronary bypass surgery. Patient is clinically stable. No arrhythmias. Tolerating activity very well. Lungs are clear. Heart is irregular. Overall, patient has made good progress. Possible discharge tomorrow morning. Increase activity and continue with her incentive spirometry Objective - Vital Signs Vital signs: Vital Signs Temp 98.2 F 10/15/18 12:00 Pulse 88 10/15/18 15:28 Resp 16 10/15/18 15:28 BP 112/71 10/15/18 12:00 Pulse Ox 94 L 10/15/18 12:00 Intake & Output 10/14/18 10/15/18 10/15/18 18:59 06:59 18:59 Intake Total 499 400 Output Total 865 775 Balance -366 -775 400 Weight 100.4 kg Intake: IV 199 Lactated Ringers 1,000 ml 160 @ 20 mls/hr IV .Q24H [facility] Rx#:[id number] Pressure Bag 39 Oral 300 400 Output: Chest Tube Drainage 75 Chest Tube Left Pleural 35 Chest Tube Mediastinal 40 Urine 790 775 Other: Voiding Method Bedside Commode Urinal Urinal # Voids 1 1 2 # Bowel Movements 1 ABP, PAP, CO, CI - Last Documented Arterial Blood Pressure 140/63 Pulmonary Artery Pressure 26/11 Cardiac Output 4.6 Cardiac Index 2.1 - Exam GENERAL EXAM: Patient is alert and oriented and doesn't appear to be in any acute distress HEENT: Normocephalic. Normal reaction of pupils, equal size, normal range of extraocular motion. No erythema or exudates in the throat. NECK: No masses, no nuchal rigidity. CHEST: Post CABG and postsurgical LUNGS: Rales at both bases HEART: S1 and S2 normal with no audible mumurs or gallops. Regular rhythm, femorals equal on both sides.. ABDOMEN: No hepatosplenomegaly, normal bowel sounds, no guarding or rigidity. SKIN: No rashes CENTRAL NERVOUS SYSTEM: No focal deficits. EXTREMITIES: No cyanosis, clubbing or edema. - Labs CBC & Chem 7: 10/15/18 06:13 10/15/18 05:26 Labs: Abnormal Lab Results - Last 24 Hours (Table) 10/14/18 10/15/18 10/15/18 Range/Units 20:51 05:26 06:13 WBC 11.2 H (3.8-10.6) k/uL RBC 3.75 L (4.30-5.90) m/uL Hgb 10.6 L (13.0-17.5) gm/dL Hct 33.7 L (39.0-53.0) % Chloride 109 H (98-107) mmol/L Creatinine 0.61 L (0.66-1.25) mg/dL POC Glucose (mg/dL) 101 H (75-99) mg/dL Calcium 8.3 L (8.4-10.2) mg/dL 10/15/18 Range/Units 12:04 WBC (3.8-10.6) k/uL RBC (4.30-5.90) m/uL Hgb (13.0-17.5) gm/dL Hct (39.0-53.0) % Chloride (98-107) mmol/L Creatinine (0.66-1.25) mg/dL POC Glucose (mg/dL) 106 H (75-99) mg/dL Calcium (8.4-10.2) mg/dL Assessment and Plan (1) Left main coronary artery disease Current Visit: Yes Status: Acute Code(s): I25.10 - ATHSCL HEART DISEASE OF [place] CORONARY ARTERY W/O ANG PCTRS SNOMED Code(s): 077644104 (2) S/P CABG (coronary artery bypass graft) Current Visit: Yes Status: Acute Code(s): Z95.1 - PRESENCE OF AORTOCORONARY BYPASS GRAFT SNOMED Code(s): 536863871 Plan: Patient is progressing well. No arrhythmias. Tolerating activity. Possible discharge in a.m.
[2018-10-15 17:20] LABS: Glucose,Whole Blood 72 mg/dL (75-99)
[2018-10-15] MEDS: METOPROLOL TARTRATE 50 MG TAB PO SCH (19:54)
[2018-10-15] MEDS: FINASTERIDE 5 MG TAB PO SCH (19:54)
[2018-10-15] MEDS: SENNOSIDES-DOCUSATE SODIUM 1 EACH TAB PO SCH (20:02)
[2018-10-15 20:21] LABS: Glucose,Whole Blood 117 mg/dL (75-99)
[2018-10-16 05:20] LABS: HGB 10.6 gm/dL (13.0-17.5); MCHC 33.2 g/dL (31.0-37.0); MCV 87.3 fL (80.0-100.0); Mean Platelet Volume 8.4; Platelet Count 180 k/uL (150-450); RBC 3.66 m/uL (4.30-5.90); RDW 14.7 % (11.5-15.5); WBC 9.3 k/uL (3.8-10.6)
[2018-10-16 05:43] LABS: African American GFR (CKD) >90 (>60 ml/min/1.73 sqM); Anion Gap 5 mmol/L; Blood Urea Nitrogen 16 mg/dL (9-20); Calcium 8.1 mg/dL (8.4-10.2); Carbon Dioxide 26 mmol/L (22-30); Chloride 107 mmol/L (98-107); Glucose 89 mg/dL (74-99); Potassium 4.1 mmol/L (3.5-5.1); Sodium 138 mmol/L (137-145)
[2018-10-16] MEDS: KETOROLAC 30 MG/ML 1 ML VIAL IVP SCH (05:59)
[2018-10-16] MEDS: PANTOPRAZOLE 40 MG TABLET PO SCH (05:59)
--- NOTE | 2018-10-16 06:38 | XR ---
EXAMINATION TYPE: XR chest 2V DATE OF EXAM: 10/16/2018 HISTORY: post cardiac surgery. REFERENCE: Previous study dated 10/15/2017. FINDINGS: There has been a midline sternotomy. There is left basilar atelectasis. There is platelike atelectasis in the right upper lobe.. Pleural s paces appear clear. IMPRESSION: CONTINUING POSTOPERATIVE CHANGE.
[2018-10-16 07:20] LABS: Glucose,Whole Blood 93 mg/dL (75-99)
[2018-10-16] MEDS: IPRATROPIUM-ALBUTEROL 3 ML NEB INHALATION SCH (08:07)
[2018-10-16 08:47] VITALS: BP 107/66; PULSE 94; RESP 16; TEMP 98.1
[2018-10-16] MEDS: INSULIN ASPART (NovoLOG) 100 UNIT/ML VIAL SQ SCH (08:48)
[2018-10-16] MEDS: HEPARIN SODIUM,PORCINE 5,000 UNIT/ML 1 ML VIAL SQ SCH (08:52)
[2018-10-16] MEDS: ASPIRIN 325 MG TAB PO SCH (08:52)
[2018-10-16] MEDS: ATORVASTATIN 40 MG TAB PO SCH (08:52)
[2018-10-16] MEDS: buPROPion SR 100 MG TABLET.ER PO SCH (08:53)
[2018-10-16] MEDS: CLOPIDOGREL 75 MG TAB PO SCH (08:53)
[2018-10-16] MEDS: METOPROLOL TARTRATE 50 MG TAB PO SCH (08:53)
--- NOTE | 2018-10-16 09:41 | P.DS ---
Providers Date of admission: 10/11/18 16:36 Expected date of discharge: 10/16/18 Attending physician: Chuck Tijerina Consults: 10/11/18 10:11 Consult Physician Stat Consulting Provider: Chuck Tijerina Consult Reason/Comments: OPEN HEART CONSULT Do you want consulting provider notified?: Already Contacted 10/11/18 15:17 Consult Physician Routine Consulting Provider: Juan Porras Consult Reason/Comments: preop cabg Do you want consulting provider notified?: Yes Consult Physician Routine Consulting Provider: Gentry Banegas Consult Reason/Comments: medical management Do you want consulting provider notified?: Yes Consult to Anesthesia Routine Consulting Provider: Anesthesia,Services Consult Reason/Comments: Cardiac Surgery Pre-Op 10/12/18 13:51 Consult Physician Routine Consulting Provider: Aung Sheffield Consult Reason/Comments: Air Grinder Consult: post cardiac surgery Do you want consulting provider notified?: Already Contacted Primary care physician: Gentry Banegas Hospital Course: FINAL DIAGNOSIS: 1. Coronary artery disease with left main disease 2. Obstructive sleep apnea with home CPAP use 3. Remote tobacco dependence with preoperative FEV1 70% of predicted 4. Family history of coronary artery disease 5. Postoperative acute blood loss anemia, expected PRINCIPAL PROCEDURE: 1. Left heart catheterization 2. Urgent coronary artery bypass grafting 2 vessels, left internal mammary artery to the left anterior descending coronary artery, radial artery to the obtuse marginal coronary artery 3. Endoscopic harvesting of the left radial artery 4. Epi-aortic ultrasound 5. Intraoperative transesophageal echocardiogram HISTORY OF PRESENT ILLNESS: This is a 53-year-old active gentleman who follows in an outpatient basis with Dr. Gentry Banegas. He had been experiencing exertional chest tightness and burning sensation associated with shortness of breath for approximately 1 year. He did bring this up at his yearly physical exam with his primary care physician, subsequently an EKG was completed in the office which was normal and he was having no other symptoms. The Chest tightness symptoms did continue, he had decreased exercise tolerance also associated with shortness of breath and profuse sweating. Due to the persistence of his symptoms he was referred to Dr. Rutledge from [facility] for further evaluation. He underwent a stress test which demonstrated anterior and lateral wall EKG changes. Subsequently, he was recommended to undergo an elective heart catheterization which demonstrated distal left main disease with an 80-90% stenosis at the bifurcation of the LAD and left circumflex with no other significant coronary artery stenosis. A transthoracic 2-D echocardiogram was completed which demonstrated a normal LV function with an EF 60-65% and no significant valvular pathology. Consultation was placed to Dr. Tijerina from cardiothoracic surgery. He was recommended to undergo urgent coronary bypass surgery. The usual perioperative course was discussed in detail with the patient and his family, all risks and benefits were explained, all questions were answered, and consent was obtained to proceed with surgery. The patient was kept inpatient due to the nature of his disease process. HOSPITAL COURSE: The patient was brought to the preoperative area on 10/12/2018, prepared in the usual fashion, and subsequently taken to the operating room where Dr. Tijerina performed an urgent coronary artery bypass grafting 2 vessels, left internal mammary artery to the left anterior descending coronary artery, radial artery to the obtuse marginal coronary artery, endoscopic harvesting of the left radial artery, epi-aortic ultrasound, and intraoperative transesophageal echocardiogram. Upon completion of surgery the patient was transferred to the cardiovascular intensive care unit where he was recovered, monitored hemodynamically, and where he progressed to cardiac rehabilitation phase 1. He was extubated, all lines, tubes, and supportive drips were discontinued when appropriate, and transfer orders were placed for 3 S. cardiac stepdown unit, however there was no bed availability and the patient remained on ICU as a stepdown patient until discharge. His oxygen was titrated down, he continued to work with physical and occupational therapy, he was tolerating oral diet, his pain was controlled, and he was ready to be discharged to home with home care on postoperative day #4. He has received written and verbal instruction regarding his medications, activity restrictions, signs and symptoms requiring physician notification, and his follow-up appointments. COMPLICATIONS: The patient experienced no postoperative complications. DISCHARGE INSTRUCTIONS: 1. No driving for 4 weeks, or until physician gives their ok. 2. The patient should sleep in their own bed, no medical bed needed. 3. Stairs are not an issue. If the bedroom is upstairs, it is advised that the patient go up at night and down in the morning for the first week. Go slowly, using handrail and take 1 step at a time. 4. TOD hose are to be worn for 30 days or until physician discontinues. 5. Heart hugger is to be worn 100% of the time until physician discontinues.(except when showering) 6. No lifting, pushing, or pulling more than 10 pounds for 12 weeks. The physician will advise of any restriction changes. 7. The patient is expected to continue the prescribed walking program. 8. Continue pain control per as needed orders. 9. Continue with incentive spirometry and splinting/heart hugger until otherwise directed by the physician. 10. Must shower daily using liquid antibacterial soap and a separate white washcloth for each individual incision. 11. Routine sternal incision care. No powders, lotions, ointments on incisions. 12. Please call surgeon/SWIMMING COACH for temp greater than 101 F or purulent drainage from incisions. 13. Narcotic medications were discussed with the patient, including the potential for misuse, addiction, and abuse. Opiod Start Talking form was reviewed with the patient. 14. All prescriptions given by surgeon for 30 days. Refills need to be filled through cardiothoracic surgeon/primary care physician. 15. A Red armband has been placed on the patient. It should be worn for 30 days post surgery and will be removed by the cardiac surgeons. If an ER visit is necessary, please make sure the number on the Red armband is called. HOME HEALTH SERVICES TO PROVIDE: RN SKILLED HOME CARE SERVICES FOR POST-OP SURGICAL PATIENTS WITH THE FOLLOWING: Coronary Artery Bypass Surgery (CABG), Mitral Valve Replacement/Repair ( MVR), Aortic Valve Replacement/Repair (AVR) RN TO CONTINUE EDUCATION FROM ``ROAD TO A HEALTH HEART PATIENT EDUCATION MANUAL (GIVEN TO PATIENT IN THE HOSPITAL) MEDICATION RECONCILIATION WITH EDUCATION NEEDED ON FIRST HOME VISIT EMPHASIZE IMPORTANCE OF WEARING BREAST SUPPORT/HEART HUGGER ENCOURAGE USE OF INCENTIVE SPIROMETER 10 X EVERY HOUR WHILE AWAKE ENCOURAGE UTILIZATION OF LOWER EXTREMITY COMPRESSION STOCKINGS/TOD HOSE and ELEVATE LEGS ABOVE LEVEL OF HEART WHILE AT REST. ENCOURAGE AMBULATION 3-5x/day INCREASING TOLERATES, WHILE AVOID EXTREMES IN TEMPERATURE FREQUENCY: RN TO OPEN THE PATIENT WITHIN 24 HOURS OF DISCHARGE FROM THE HOSPITAL WITH TELEHEALTH INSTALLED AT [facility] [place], RN TO VISIT 2-3 X A WEEK FOR 4 WEEKS ESTABLISHED BY PATIENT NEEDS. LABORATORY: CBC, CMP TO BE DRAWN ON THE THIRD DAY HOME, (RAN STAT) FAX RESULTS TO [phone]. TELEHEALTH PARAMETERS: WEIGHT: NOTIFY MD OF WEIGHT GAIN OF 2 LBS IN 24 HOURS OR 5 LBS IN ONE WEEK HR: NOTIFY MD OF HR <55 BPM OR HR>100 BPM BP: NOTIFY MD IF BP <90/55 OR BP>140/100 O2 SAT: NOTIFY MD IF PO2<93% ON ROOM AIR SEND TELEHEALTH REPORT TO SALES ROUTE DRIVER AND CARDIOVASCULAR SURGEON THE FIRST WEEK OF CARE AND THEN BI-WEEKLY. PLEASE ADDITIONALLY COMMUNICATE ANY ABNORMALS AND NEW FINDINGS TO THE SURGEONS OFFICE. Plan - Discharge Summary Discharge Rx Participant: Yes New Discharge Prescriptions: New Aspirin 325 mg PO DAILY #30 tab Atorvastatin [Lipitor] 40 mg PO DAILY #30 tab Metoprolol Tartrate [Lopressor] 100 mg PO BID #120 tab amLODIPine [Norvasc] 5 mg PO DAILY #30 tab Clopidogrel [Plavix] 75 mg PO DAILY #30 tab Pantoprazole [Protonix] 40 mg PO AC-BRKFST #30 tablet.[address] Rosario-Docusate Sodium [Senokot-S] 2 each PO HS #14 tab Acetaminophen Tab [Tylenol] 1,000 mg PO Q6HR PRN #120 tab PRN Reason: Fever and/ or Mild Pain Continue buPROPion HCL [Wellbutrin SR] 100 mg PO DAILY Dutasteride 0.5 mg PO DAILY Discontinued Metoprolol Tartrate [Lopressor] 12.5 mg PO BID Isosorbide Mononitrate [Isosorbide Mononitrate ER] 30 mg PO DAILY Atorvastatin [Lipitor] 80 mg PO DAILY Aspirin 81 mg PO DAILY Discharge Medication List Dutasteride 0.5 mg PO DAILY 10/07/18 [History] buPROPion HCL [Wellbutrin SR] 100 mg PO DAILY 10/07/18 [History] Acetaminophen Tab [Tylenol] 1,000 mg PO Q6HR PRN #120 tab 10/16/18 [Rx] Aspirin 325 mg PO DAILY #30 tab 10/16/18 [Rx] Atorvastatin [Lipitor] 40 mg PO DAILY #30 tab 10/16/18 [Rx] Clopidogrel [Plavix] 75 mg PO DAILY #30 tab 10/16/18 [Rx] Metoprolol Tartrate [Lopressor] 100 mg PO BID #120 tab 10/16/18 [Rx] Pantoprazole [Protonix] 40 mg PO AC-BRKFST #30 tablet. 10/16/18 [Rx] Sennosides-Docusate Sodium [Senokot-S] 2 each PO HS #14 tab 10/16/18 [Rx] amLODIPine [Norvasc] 5 mg PO DAILY #30 tab 10/16/18 [Rx] Follow up Appointment(s)/Referral(s): Gentry Banegas MD [Primary Care Provider] - 10/27/18 10:40 am Aisha Hickman NPC [Nurse Practitioner] - 10/22/18 10:45 am Aung Sheffield MD [STAFF PHYSICIAN] - 10/26/18 3:00 pm Veronica Chaudhari NPC [Nurse Practitioner] - 11/03/18 2:45 pm [facility], [NON-STAFF] - 1-2 Days Chuck Tijerina MD [STAFF PHYSICIAN] - 11/12/18 10:30 am Ambulatory/Diagnostic Orders: Complete Blood Count w/diff [LAB.AMB] Time Frame: 10/19/18, Facility: [facility], Location: [facility] Comprehensive Metabolic Panel [LAB.AMB] Time Frame: 10/19/18, Facility: [facility], Location: [facility] Activity/Diet/Wound Care/Special Instructions: DISCHARGE INSTRUCTIONS: 1. No driving for 4 weeks, or until physician gives their ok. 2. The patient should sleep in their own bed, no medical bed needed. 3. Stairs are not an issue. If the bedroom is upstairs, it is advised that the patient go up at night and down in the morning for the first week. Go slowly, using handrail and take 1 step at a time. 4. TOD hose are to be worn for 30 days or until physician discontinues. 5. Heart hugger is to be worn 100% of the time until physician discontinues.(except when showering) 6. No lifting, pushing, or pulling more than 10 pounds for 12 weeks. The physician will advise of any restriction changes. 7. The patient is expected to continue the prescribed walking program. 8. Continue pain control per as needed orders. 9. Continue with incentive spirometry and splinting/heart hugger until otherwise directed by the physician. 10. Must shower daily using liquid antibacterial soap and a separate white washcloth for each individual incision. 11. Routine sternal incision care. No powders, lotions, ointments on incisions. 12. Please call surgeon/SWIMMING COACH for temp greater than 101 F or purulent drainage from incisions. 13. Narcotic medications were discussed with the patient, including the potential for misuse, addiction, and abuse. Opiod Start Talking form was reviewed with the patient. 14. All prescriptions given by surgeon for 30 days. Refills need to be filled through cardiothoracic surgeon/primary care physician. 15. A Red armband has been placed on the patient. It should be worn for 30 days post surgery and will be removed by the cardiac surgeons. If an ER visit is necessary, please make sure the number on the Red armband is called. HOME HEALTH SERVICES TO PROVIDE: RN SKILLED HOME CARE SERVICES FOR POST-OP SURGICAL PATIENTS WITH THE FOLLOWING: Coronary Artery Bypass Surgery (CABG), Mitral Valve Replacement/Repair ( MVR), Aortic Valve Replacement/Repair (AVR) RN TO CONTINUE EDUCATION FROM ``ROAD TO A HEALTH HEART PATIENT EDUCATION MANUAL (GIVEN TO PATIENT IN THE HOSPITAL) MEDICATION RECONCILIATION WITH EDUCATION NEEDED ON FIRST HOME VISIT EMPHASIZE IMPORTANCE OF WEARING BREAST SUPPORT/HEART HUGGER ENCOURAGE USE OF INCENTIVE SPIROMETER 10 X EVERY HOUR WHILE AWAKE ENCOURAGE UTILIZATION OF LOWER EXTREMITY COMPRESSION STOCKINGS/TOD HOSE and ELEVATE LEGS ABOVE LEVEL OF HEART WHILE AT REST. ENCOURAGE AMBULATION 3-5x/day INCREASING TOLERATES, WHILE AVOID EXTREMES IN TEMPERATURE FREQUENCY: RN TO OPEN THE PATIENT WITHIN 24 HOURS OF DISCHARGE FROM THE HOSPITAL WITH TELEHEALTH INSTALLED AT [facility] [place], RN TO VISIT 2-3 X A WEEK FOR 4 WEEKS ESTABLISHED BY PATIENT NEEDS. LABORATORY: CBC, CMP TO BE DRAWN ON THE THIRD DAY HOME, (RAN STAT) FAX RESULTS TO [phone]. TELEHEALTH PARAMETERS: WEIGHT: NOTIFY MD OF WEIGHT GAIN OF 2 LBS IN 24 HOURS OR 5 LBS IN ONE WEEK HR: NOTIFY MD OF HR <55 BPM OR HR>100 BPM BP: NOTIFY MD IF BP <90/55 OR BP>140/100 O2 SAT: NOTIFY MD IF PO2<93% ON ROOM AIR SEND TELEHEALTH REPORT TO SALES ROUTE DRIVER AND CARDIOVASCULAR SURGEON THE FIRST WEEK OF CARE AND THEN BI-WEEKLY. PLEASE ADDITIONALLY COMMUNICATE ANY ABNORMALS AND NEW FINDINGS TO THE SURGEONS OFFICE. Discharge Disposition: HOME WITH HOME HEALTH SERVICES
[2018-10-16] MEDS ORDERED: FUROSEMIDE 10 MG/ML 2 ML VIAL IV ONE (09:56)
[2018-10-16] MEDS ORDERED: FUROSEMIDE 20 MG TAB PO STA (11:10)
[2018-10-16] MEDS: amLODIPine 5 MG TAB PO SCH (11:19)
--- NOTE | 2018-10-19 14:46 | P.ARTDOP ---
Arterial Doppler LOWER EXTREMITY ARTERIAL DOPPLER: DATE OF SERVICE: 10/11/2018 Reason for study: Preop CABG. Doppler waveforms: Multiphasic bilaterally throughout Pulse volume recording: []. Pressure gradients: None. Ankle-brachial indices: Greater than 1 bilaterally. Toe pressures: [] on the right, [] on the left Impression: Normal study.
--- NOTE | 2018-10-19 14:48 | P.VSCSTY ---
Greater Saphenous Vein Mapping This is bilateral lower extremity greater saphenous vein mapping. Date of service 10/11/2018 Vein quality and ultrasound appearance no endoluminal thrombus or wall changes are seen. Vein size groin right 4.4 x 5.1 groin left 6.5 x 7.1 High thigh right 5.0 x 4.0 high thigh left 3.5 x 3.5 Mid thigh right 2.7 x 3.3 mid thigh left 2.6 x 3.1 Above-knee right 4.1 x 5.2 above-knee left 1.9 x 3.1 Below knee right 3.7 x 4.6 below-knee left 3.5 x 4.3 Mid calf right 3.0 x 4.2 mid calf left 2.2 x 2.7 Ankle right 3.0 x 4.0 ankle left 1.7 x 2.7 Impression usable bilateral greater saphenous vein. The right is pretty c onsistent throughout. The left thigh appears to be adequate. Parts of the lower leg on the left appear possibly to small for use, especially distally...
== END 2018-10-16 12:28 | disposition home health service (06) | DRG 234 ==
LOC: CATHCVL 06:22 → 2SICU 16:36
PROVIDERS: ADMIT Internal Medicine Interventional Cardiology; ATTEND Surgery
PROC: 4A023N7 Measurement of Cardiac Sampling and Pressure, Left Heart, Percutaneous Approach (ICD-10-PCS; 2018-10-11)
PROC: B2111ZZ Fluoroscopy of Multiple Coronary Arteries using Low Osmolar Contrast (ICD-10-PCS; 2018-10-11)
PROC: 02100Z9 Bypass Coronary Artery, One Artery from Left Internal Mammary, Open Approach (ICD-10-PCS; 2018-10-12)
PROC: 03BC4ZZ Excision of Left Radial Artery, Percutaneous Endoscopic Approach (ICD-10-PCS; 2018-10-12)
PROC: 5A1221Z Performance of Cardiac Output, Continuous (ICD-10-PCS; 2018-10-12)
PROC: B24BZZ4 Ultrasonography of Heart with Aorta, Transesophageal (ICD-10-PCS; 2018-10-12)
PROC: 02100AW Bypass Coronary Artery, One Artery from Aorta with Autologous Arterial Tissue, Open Approach (ICD-10-PCS; principal; 2018-10-12 07:30)
DX: I25.110 Atherosclerotic heart disease of native coronary artery with unstable angina pectoris (principal); D62 Acute posthemorrhagic anemia; I20.1 Angina pectoris with documented spasm; I07.1 Rheumatic tricuspid insufficiency; G47.33 Obstructive sleep apnea (adult) (pediatric); I10 Essential (primary) hypertension; E78.00 Pure hypercholesterolemia, unspecified; Z79.82 Long term (current) use of aspirin; Z79.899 Other long term (current) drug therapy; Z87.891 Personal history of nicotine dependence; Z88.2 Allergy status to sulfonamides; Z91.030 Bee allergy status; Z82.49 Family history of ischemic heart disease and other diseases of the circulatory system
CPT/HCPCS: 36410; 71045; 71046; 76937; 80048; 80053; 80061; 80074; 81003; 82330; 82805; 83036; 83735; 84443; 85025; 85027; 85520; 85610; 85730; 86850; 86891; 86900; 86901; 86920; 87070; 87086; 93458; 93880; 93922; 93970; 94002; 94150; 94640

== ENCOUNTER → 2019-02-21 | Outpatient (CLI) | payer BC ==
--- NOTE | 2019-02-21 15:30 | XR ---
EXAMINATION TYPE: XR chest 2V DATE OF EXAM: 02/21/2019 COMPARISON: 10/16/2018 INDICATION: Post CABG evaluation pain at sternum TECHNIQUE: Frontal and lateral views of the chest are obtained. FINDINGS: The heart size is normal. The pulmonary vasculature is normal. The lungs are clear. Sternotomy wires and midline. Sternal appears intact. IMPRESSION: 1. No acute pulmonary process.
== END | disposition home or self-care (01) ==
LOC: RADXRMAIN 14:56
PROVIDERS: ATTEND Family Medicine
DX: Z09 Encounter for follow-up examination after completed treatment for conditions other than malignant neoplasm (principal)
CPT/HCPCS: 71046

== ENCOUNTER 2020-02-01 08:53 | Day surgery (SDC) | payer BC ==
[2020-01-26 14:03] VITALS: BMI 30.7
[~2020-02-01 08:53] MED LIST changes: -ALPRAZolam 0.25 MG TAB PO PRN; -ALPRAZolam 0.5 MG TAB PO PRN; -ASPIRIN 325 MG TAB PO STA; -ATORVASTATIN 80 MG TAB PO STA; +LIDOCAINE 1% (10MG/ML) FOR IV START INTRADERMA PRN; -NITROGLYCERIN SL TABS 0.4 MG TAB SUBLINGUAL PRN; -SODIUM CHLORIDE 0.9% 1,000 ML in EMPTY BAG 1 BAG IV ONE
[2020-02-01 09:15] VITALS: TEMP 98.9
[2020-02-01] MEDS ORDERED: LIDOCAINE 1% (10MG/ML) FOR IV START INTRADERMA ONE (09:19)
[2020-02-01] MEDS: LACTATED RINGERS 1,000 ML IV SCH ×2 (09:19→09:26)
[2020-02-01] MEDS ORDERED: PROPOFOL 10 MG/ML 20 ML VIAL IV ONE (09:29)
--- NOTE | 2020-02-01 09:32 | P.GSHP ---
History of Present Illness H&P Date: 02/01/20 CHIEF COMPLAINT: Colon screen HISTORY OF PRESENT ILLNESS: The patient is a 54-year-old male who presents for colon screen. Lower endoscopy was offered for further evaluation and management. PAST MEDICAL HISTORY: Please see list. PAST SURGICAL HISTORY: Please see list. MEDICATIONS: Please see list. ALLERGIES: Please see list. SOCIAL HISTORY: No illicit drug use FAMILY HISTORY: No reports of Crohn disease or ulcerative colitis. REVIEW OF ORGAN SYSTEMS: CONSTITUTIONAL: No reports of fevers or chills. PHYSICAL EXAM: VITAL SIGNS: Stable GENERAL: Well-developed pleasant in no acute distress. HEENT: No scleral icterus. Extraocular movements grossly intact. Moist buccal mucosa. NECK: Supple without lymphadenopathy. CHEST: Unlabored respirations. Equal bilateral excursions. CARDIOVASCULAR: Regular rate and rhythm. Distal 2+ pulses. ABDOMEN: Soft, nontender, nondistended. MUSCULOSKELETAL: No clubbing, cyanosis, or edema. ASSESSMENT: 1. Colon screen. PLAN: 1. Recommend proceeding with a lower endoscopy Past Medical History Past Medical History: Chest Pain / Angina, Prostate Disorder, Sleep Apnea/CPAP/BIPAP Additional Past Medical History / Comment(s): chest discomfort & burning w/exertion, pt had sleep study and was given an appliance in 2016. does not wear cpap History of Any Multi-Drug Resistant Organisms: None Reported Past Surgical History: Coronary Bypass/CABG, Hernia Repair Additional Past Surgical History / Comment(s): 10/21 CABG Past Anesthesia/Blood Transfusion Reactions: No Reported Reaction, Motion Sickness Smoking Status: Former smoker - Past Family History Father Family Medical History: Myocardial Infarction ([place]) Additional Family Medical History / Comment(s): Cardiac stenting and 62 years old. Also maternal grandfather of massive myocardial infarction Medications and Allergies Home Medications Medication Instructions Recorded Confirmed Type Acetaminophen Tab [Tylenol] 1,000 mg PO Q6HR PRN #120 tab 10/16/18 02/01/20 Rx Atorvastatin [Lipitor] 40 mg PO DAILY #30 tab 10/16/18 02/01/20 Rx amLODIPine [Norvasc] 5 mg PO DAILY #30 tab 10/16/18 02/01/20 Rx Aspirin [Adult Low Dose Aspirin EC] 81 mg PO DAILY 01/26/20 02/01/20 History Metoprolol Succinate [Toprol XL] 12.5 mg PO DAILY 01/26/20 02/01/20 History Tadalafil [Cialis] 10 mg PO DAILY MDD erectile 01/26/20 02/01/20 History dysfunction Tamsulosin HCl [Flomax] 0.5 mg PO HS 01/26/20 02/01/20 History Allergies Allergy/AdvReac Type Severity Reaction Status Date / Time bee venom protein (honey bee) Allergy Rash/Hives Verified 02/01/20 09:08 latex Allergy Rash/Hives Verified 02/01/20 09:08 Sulfa (Sulfonamide Allergy Rash/Hives Verified 02/01/20 09:08 Antibiotics) Surgical - Exam Vital Signs Temp Pulse Resp BP Pulse Ox 98.9 F 85 18 127/72 96 02/01/20 09:13 02/01/20 09:13 02/01/20 09:13 02/01/20 09:13 02/01/20 09:13
--- NOTE | 2020-02-01 09:53 | P.PCN ---
Date of Procedure: 02/01/20 Description of Procedure: PREOPERATIVE DIAGNOSIS: Colonoscopy screening POSTOPERATIVE DIAGNOSIS: Tubular adenoma transverse colon OPERATION: Colonoscopy to the ileocecal valve and cecum Colonoscopy with cold forceps biopsies SURGEON: Rosa Wang MD. ANESTHESIA: MAC. INDICATIONS: The patient is an 54-year-old male who presents for his first colonoscopy screening. Benefits and risks were described and informed consent was obtained. DESCRIPTION OF PROCEDURE: The patient had undergone Suprep. He had been brought into the operating room and laid in the left lateral decubitus position. After adequate intravenous sedation, the rectum was examined with 2% lidocaine jelly. The prostate was without nodularity. No external hemorrhoids were encountered. The rectal tone was within normal limits. No lesions were palpated in the rectal vault. An Olympus colonoscope was advanced until the cecum, ileocecal valve and appendiceal orifice were clearly viewed. The prep was excellent. No sigmoid diverticulosis was encountered. A tubular adenoma 4 mm in size the proximal transverse colon was removed using cold forceps. No focal colitis was found. Retroflexion of the scope demonstrated no internal hemorrhoids. The colon was desufflated. The patient had tolerated the procedure well. Withdrawal time was over 6 minutes. FINDINGS: Aronchick preparation quality scale 1 (1-5) No internal hemorrhoids No external hemorrhoids No arteriovenous malformations. No sigmoid diverticulosis Removal of 1 polyp: - Cold forceps biopsy at proximal transverse colon, 4 mm polyp. No focal colitis. RECOMMENDATIONS: Repeat colonoscopy in 3 years, 2022 Plan - Discharge Summary Discharge Rx Participant: No New Discharge Prescriptions: Continue Atorvastatin [Lipitor] 40 mg PO DAILY #30 tab amLODIPine [Norvasc] 5 mg PO DAILY #30 tab Acetaminophen Tab [Tylenol] 1,000 mg PO Q6HR PRN #120 tab PRN Reason: Fever and/ or Mild Pain Metoprolol Succinate [Toprol XL] 12.5 mg PO DAILY Tamsulosin HCl [Flomax] 0.5 mg PO HS Aspirin [Adult Low Dose Aspirin EC] 81 mg PO DAILY Tadalafil [Cialis] 10 mg PO DAILY MDD erectile dysfunction Discharge Medication List Acetaminophen Tab [Tylenol] 1,000 mg PO Q6HR PRN #120 tab 10/16/18 [Rx] Atorvastatin [Lipitor] 40 mg PO DAILY #30 tab 10/16/18 [Rx] amLODIPine [Norvasc] 5 mg PO DAILY #30 tab 10/16/18 [Rx] Aspirin [Adult Low Dose Aspirin EC] 81 mg PO DAILY 01/26/20 [History] Metoprolol Succinate [Toprol XL] 12.5 mg PO DAILY 01/26/20 [History] Tadalafil [Cialis] 10 mg PO DAILY MDD erectile dysfunction 01/26/20 [History] Tamsulosin HCl [Flomax] 0.5 mg PO HS 01/26/20 [History] Follow up Appointment(s)/Referral(s): Rosa Wang MD [STAFF PHYSICIAN] - As Needed Patient Instructions/Handouts: Colorectal Polyps (IP) Activity/Diet/Wound Care/Special Instructions: Repeat colonoscopy 3 years, 2022 Discharge Disposition: HOME SELF-CARE
[2020-02-01 09:55] VITALS: RESP 16
[2020-02-01 10:13] VITALS: BP 107/61; PULSE 72
== END 2020-02-01 10:25 | disposition home or self-care (01) ==
LOC: ORWHC2ENDO 08:53
PROVIDERS: ATTEND Surgery Plastic and Reconstructive Surgery
DX: Z12.11 Encounter for screening for malignant neoplasm of colon (principal); D12.3 Benign neoplasm of transverse colon; Z91.040 Latex allergy status; Z88.2 Allergy status to sulfonamides; Z91.030 Bee allergy status; I10 Essential (primary) hypertension; E78.5 Hyperlipidemia, unspecified; Z95.1 Presence of aortocoronary bypass graft; G47.33 Obstructive sleep apnea (adult) (pediatric); N40.0 Benign prostatic hyperplasia without lower urinary tract symptoms; Z79.899 Other long term (current) drug therapy; Z99.89 Dependence on other enabling machines and devices; Z82.49 Family history of ischemic heart disease and other diseases of the circulatory system; Z87.891 Personal history of nicotine dependence; Z98.890 Other specified postprocedural states; Z79.82 Long term (current) use of aspirin
CPT/HCPCS: 88305; 45380; J2704

== ENCOUNTER 2023-04-02 06:13 | Day surgery (SDC) | payer BC ==
[2023-04-02] MEDS ORDERED: NITROGLYCERIN SL TABS 0.4 MG TAB SUBLINGUAL PRN (06:32)
[2023-04-02] MEDS ORDERED: ATORVASTATIN 80 MG TAB PO STA (06:32)
[2023-04-02] MEDS ORDERED: ASPIRIN 325 MG TAB PO STA (06:32)
[2023-04-02] MEDS ORDERED: HEPARIN SODIUM,PORCINE 10,000 UNIT in SODIUM CHLORIDE 0.9% 1,000 ML IRRIGATION PRN (06:32)
[2023-04-02] MEDS ORDERED: SODIUM CHLORIDE 0.9% 1,000 ML in EMPTY BAG 1 BAG IV SCH (06:32)
[2023-04-02] MEDS ORDERED: ALPRAZolam 0.5 MG TAB PO PRN (06:32)
[2023-04-02] MEDS ORDERED: ALPRAZolam 0.25 MG TAB PO PRN (06:32)
[2023-04-02] MEDS ORDERED: HEPARIN SODIUM,PORCINE (1 ML) 2,500 UNIT in SODIUM CHLORIDE 0.9% 250 ML IRRIGATION PRN (06:32)
[2023-04-02] MEDS ORDERED: SODIUM CHLORIDE 0.9% 1,000 ML IV ONE (06:41)
[2023-04-02] MEDS ORDERED: LIDOCAINE 1% INJ 10MG/ML (20 ML MDV) ONE (07:14)
[2023-04-02] MEDS ORDERED: VERAPAMIL 2.5 MG/ML 2 ML AMP ONE (07:14)
[2023-04-02 07:16] VITALS: RESP 16; TEMP 98
[2023-04-02] MEDS ORDERED: MIDAZOLAM 2 MG/2 ML VIAL IVP ONE (07:44)
[2023-04-02] MEDS ORDERED: LIDOCAINE 1% INJ 10MG/ML (20 ML MDV) SQ ONE (07:44)
[2023-04-02] MEDS ORDERED: IOPAMIDOL-370 100ML BTL INJ ONE (08:01)
[2023-04-02] MEDS ORDERED: RX INFO: IV CONTRAST WAS GIVEN 1 EACH MISC MISCELLANE PRN (08:04)
--- NOTE | 2023-04-02 08:08 | P.PCN ---
Date of Procedure: 04/02/23 Operative Findings: CARDIAC CATHETERIZATION PERFORMING PHYSICIAN: Aung Sheffield MD, RPVI PROCEDURE PERFORMED: 1. Selective right and left coronary angiogram 2. Left heart catheterization 3. MALHOTRA into LAD angiogram and radial artery to OM angiogram 4. Selective right common femoral artery under INDICATION: Chest discomfort and shortness of breath this 57-year-old gentleman who is known to have coronary artery disease with prior MALHOTRA to LAD and SVG to OM and he underwent a stress test showed abnormalities COMPLICATION: None APPROACH: Right common femoral artery LEVEL OF SEDATION: Moderate with sedation in length of 15 minutes PROCEDURE DESCRIPTION: After obtaining an informed consent, the patient was brought to cardiac general labor. Local anesthesia was performed using lidocaine subcutaneously. The right common femoral artery was cannulated using Seldinger technique, the guidewire passed easily, following that we advanced a 6 Nigerien sheath dilator assembly, the wire and dilator were removed and sheath was flushed. Selective right and left coronary angiogram using a 6-Nigerien JL4 catheter and Nikunj right catheter. The MALHOTRA into LAD angiogram and radial artery to OM angiogram performed using JR4 catheter. Following that we did left heart catheterization using 6-Nigerien pigtail catheter. The procedure was completed there was no complication. SELECTIVE CORONARY ANGIOGRAM: The right coronary artery: Large caliber vessel and a dominant vessel was mild disease only. Left main: Has significant lesion distally appears to be in the range of 80% The left circumflex: The ostial left circumflex is involved in the lesion in the left main and appears to be disease in the range of 70-80% The left anterior descending artery: The ostial LAD also involved in the lesion from the left main and appears to be disease in the range of 70-80% Coronary bypasses angiogram: The MALHOTRA to LAD is patent The radial artery to OM is patent HEMODYNAMICS: The LVEDP was 8 mmHg was no significant gradient across aortic valve CONCLUSION: 1. Severe disease involving the distal left main coronary artery 2. Patent MALHOTRA to LAD and patent radial artery to OM 3. Mild disease involving the RCA POSTPROCEDURE MANAGEMENT: Medical treatment
[2023-04-02] MEDS ORDERED: SODIUM CHLORIDE 0.9% 1,000 ML IV SCH (08:15)
[2023-04-02 12:40] VITALS: BP 114/65; PULSE 58
== END 2023-04-02 12:37 | disposition home or self-care (01) ==
LOC: CATHCVL 06:13
PROVIDERS: ATTEND Internal Medicine Interventional Cardiology
DX: I25.10 Atherosclerotic heart disease of native coronary artery without angina pectoris (principal); I10 Essential (primary) hypertension; E78.5 Hyperlipidemia, unspecified; F17.210 Nicotine dependence, cigarettes, uncomplicated; I38 Endocarditis, valve unspecified; Z79.82 Long term (current) use of aspirin; Z79.899 Other long term (current) drug therapy; Z91.040 Latex allergy status; Z88.2 Allergy status to sulfonamides
CPT/HCPCS: 93459; C1760; C1769 ×2; C1894; J2250; J2001; Q9967

== ENCOUNTER 2023-08-19 10:19 | Day surgery (SDC) | payer BC ==
--- NOTE | 2023-08-19 08:40 | P.GSHP ---
History of Present Illness H&P Date: 08/19/23 CHIEF COMPLAINT: Colon screen HISTORY OF PRESENT ILLNESS: The patient is a 58-year-old male who presents for colon screen. Lower endoscopy was offered for further evaluation and management. PAST MEDICAL HISTORY: Please see list. PAST SURGICAL HISTORY: Please see list. MEDICATIONS: Please see list. ALLERGIES: Please see list. SOCIAL HISTORY: No illicit drug use FAMILY HISTORY: No reports of Crohn disease or ulcerative colitis. REVIEW OF ORGAN SYSTEMS: CONSTITUTIONAL: No reports of fevers or chills. PHYSICAL EXAM: VITAL SIGNS: Stable GENERAL: Well-developed pleasant in no acute distress. HEENT: No scleral icterus. Extraocular movements grossly intact. Moist buccal mucosa. NECK: Supple without lymphadenopathy. CHEST: Unlabored respirations. Equal bilateral excursions. CARDIOVASCULAR: Regular rate and rhythm. Distal 2+ pulses. ABDOMEN: Soft, nontender, nondistended. MUSCULOSKELETAL: No clubbing, cyanosis, or edema. ASSESSMENT: 1. Colon screen. PLAN: 1. Recommend proceeding with a lower endoscopy Past Medical History Past Medical History: Chest Pain / Angina, Hyperlipidemia, Hypertension, Prostate Disorder, Sleep Apnea/CPAP/BIPAP Additional Past Medical History / Comment(s): SOB w/exertion, pt had sleep study, does not wear cpap, BPH History of Any Multi-Drug Resistant Organisms: None Reported Past Surgical History: Coronary Bypass/CABG, Heart Catheterization, Hernia Repair Additional Past Surgical History / Comment(s): 10/20 CABG double bypass, colonoscopies Past Anesthesia/Blood Transfusion Reactions: No Reported Reaction, Motion Sickness Additional Past Anesthesia/Blood Transfusion Reaction / Comment(s): no Smoking Status: Former smoker - Past Family History Father Family Medical History: Myocardial Infarction ([place]) Additional Family Medical History / Comment(s): Cardiac stenting and 62 years old. Also maternal grandfather of massive myocardial infarction Medications and Allergies Home Medications Medication Instructions Recorded Confirmed Type Atorvastatin [Lipitor] 40 mg PO DAILY #30 tab 10/16/18 08/18/23 Rx Aspirin [Adult Low Dose Aspirin EC] 81 mg PO DAILY 01/26/20 08/18/23 History Metoprolol Succinate [Toprol XL] 12.5 mg PO QAM 01/26/20 08/18/23 History tadalafiL [Cialis] 10 mg PO DAILY MDD erectile 01/26/20 08/18/23 History dysfunction hydroCHLOROthiazide [Hydrodiuril] 50 mg PO DAILY 03/30/23 08/18/23 History Fexofenadine HCl [Kirstin Allergy] 180 mg PO DAILY PRN 08/18/23 08/18/23 History amLODIPine [Norvasc] 5 mg PO QAM 08/18/23 08/18/23 History Allergies Allergy/AdvReac Type Severity Reaction Status Date / Time bee venom protein (honey bee) Allergy Rash/Hives Verified 08/18/23 09:12 latex Allergy Rash/Hives Verified 08/18/23 09:12 Sulfa (Sulfonamide Allergy Rash/Hives Verified 08/18/23 09:12 Antibiotics)
[2023-08-19] MEDS ORDERED: PROPOFOL 10 MG/ML 20 ML VIAL IV ONE (11:07)
[2023-08-19] MEDS ORDERED: MIDAZOLAM 2 MG/2 ML VIAL ONE (11:07)
[2023-08-19] MEDS: LACTATED RINGERS 1,000 ML IV SCH (11:39)
[2023-08-19 11:59] VITALS: RESP 16; TEMP 97
[2023-08-19 12:43] VITALS: PULSE 70
--- NOTE | 2023-08-19 12:54 | P.PCN ---
Date of Procedure: 08/19/23 Description of Procedure: PREOPERATIVE DIAGNOSIS: History of colon polyps Colonoscopy screening. POSTOPERATIVE DIAGNOSIS: Colonoscopy screening. Diverticulosis, scattered. OPERATION: Colonoscopy to the cecum, ileocecal valve and appendiceal orifice. SURGEON: Rosa Wang MD. ANESTHESIA: MAC. INDICATIONS: The patient is a 58-year-old male who presents for colonoscopy screening. Last colonoscopy 5 years ago. Benefits and risks were described and informed consent was obtained. DESCRIPTION OF PROCEDURE: The patient had undergone Sutab prep. The patient had been brought into the operating room and laid in the left lateral decubitus position. After adequate intravenous sedation, the rectum was examined with 2% lidocaine jelly. No external hemorrhoids were encountered. The rectal tone was within normal limits. No lesions were palpated in the rectal vault. An Olympus colonoscope was advan jocelin until the cecum, ileocecal valve and appendiceal orifice were clearly viewed. The prep was excellent. Scattered diverticulosis was encountered. No colonic polyps were found. No evidence of focal colitis was found. Retroflexion of the scope demonstrated grade 1 internal hemorrhoids without active bleeding or inflammation. The colon was desufflated. The patient had tolerated the procedure well. Withdrawal time was over 6 minutes. FINDINGS: Aronchick preparation quality scale 1 (1-5) Internal hemorrhoids, grade 1 No external prolapsed hemorrhoids. No arteriovenous malformations. No adenomatous polyps. No focal colitis. RECOMMENDATIONS: Lower endoscopy in 5 years, 2028 Plan - Discharge Summary Discharge Rx Participant: Yes New Discharge Prescriptions: Continue Atorvastatin [Lipitor] 40 mg PO DAILY #30 tab Metoprolol Succinate [Toprol XL] 12.5 mg PO QAM Aspirin [Adult Low Dose Aspirin EC] 81 mg PO DAILY tadalafiL [Cialis] 10 mg PO DAILY MDD erectile dysfunction Fexofenadine HCl [Kirstin Allergy] 180 mg PO DAILY PRN PRN Reason: Allergy Symptoms hydroCHLOROthiazide [Hydrodiuril] 50 mg PO DAILY amLODIPine [Norvasc] 5 mg PO QAM Discharge Medication List Atorvastatin [Lipitor] 40 mg PO DAILY #30 tab 10/16/18 [Rx] Aspirin [Adult Low Dose Aspirin EC] 81 mg PO DAILY 01/26/20 [History] Metoprolol Succinate [Toprol XL] 12.5 mg PO QAM 01/26/20 [History] tadalafiL [Cialis] 10 mg PO DAILY MDD erectile dysfunction 01/26/20 [History] hydroCHLOROthiazide [Hydrodiuril] 50 mg PO DAILY 03/30/23 [History] Fexofenadine HCl [Kirstin Allergy] 180 mg PO DAILY PRN 08/18/23 [History] amLODIPine [Norvasc] 5 mg PO QAM 08/18/23 [History] Follow up Appointment(s)/Referral(s): Rosa Wang MD [STAFF PHYSICIAN] - As Needed Patient Instructions/Handouts: *Surgery [facility] - (Anesthesia) Discharge Instructions Outpatient Surgery, Diverticulosis (DC), Diverticulosis Diet (GEN) Activity/Diet/Wound Care/Special Instructions: Repeat colonoscopy 5 years, 2028 Discharge Disposition: HOME SELF-CARE
[2023-08-19 13:25] VITALS: BP 108/70
== END 2023-08-19 13:38 | disposition home or self-care (01) ==
LOC: ORWHC2ENDO 10:19
PROVIDERS: ATTEND Surgery Plastic and Reconstructive Surgery
DX: Z12.11 Encounter for screening for malignant neoplasm of colon (principal); K64.0 First degree hemorrhoids; E78.5 Hyperlipidemia, unspecified; G47.30 Sleep apnea, unspecified; I10 Essential (primary) hypertension; Z79.82 Long term (current) use of aspirin; Z79.899 Other long term (current) drug therapy; Z87.891 Personal history of nicotine dependence; Z88.1 Allergy status to other antibiotic agents; Z88.2 Allergy status to sulfonamides; Z91.030 Bee allergy status; Z91.040 Latex allergy status; Z95.1 Presence of aortocoronary bypass graft
CPT/HCPCS: 45378; J2250; J2704

== ENCOUNTER 2024-04-30 05:10 | Emergency (ER) | payer BC ==
[2024-04-30 05:35] LABS: Basophils % (A) 0 %; Eosinophils # (A) 0.2 k/uL (0-0.7); Eosinophils % (A) 2 %; HCT 46.2 % (39.0-53.0); HGB 15.4 gm/dL (13.0-17.5); Lymphocytes # (A) 1.7 k/uL (1.0-4.8); Lymphocytes % (A) 16 %; MCH 28.9 pg (25.0-35.0); MCHC 33.3 g/dL (31.0-37.0); MCV 86.7 fL (80.0-100.0); Mean Platelet Volume 7.6; Monocytes # (A) 0.4 k/uL (0-1.0); Monocytes % (A) 4 %; Neutrophils # (A) 7.9 k/uL (1.3-7.7); Neutrophils % (A) 77 %; Platelet Count 255 k/uL (150-450); RBC 5.33 m/uL (4.30-5.90); RDW 13.2 % (11.5-15.5); WBC 10.3 k/uL (3.8-10.6)
[2024-04-30 05:40] LABS: Prothrombin Time 11.2 sec (10.0-12.5)
[2024-04-30 06:06] LABS: ALT 40 U/L (4-49); AST 32 U/L (17-59); African American GFR (CKD) >90 (>60 ml/min/1.73 sqM); Alkaline Phosphatase 91 U/L (38-126); Anion Gap 6 mmol/L; Blood Urea Nitrogen 15 mg/dL (9-20); Calcium 9.3 mg/dL (8.4-10.2); Carbon Dioxide 30 mmol/L (22-30); Chloride 99 mmol/L (98-107); Glucose 142 mg/dL (74-99); Non-African American GFR(CKD) >90 (>60 ml/min/1.73 sqM); Sodium 135 mmol/L (137-145); Total Bilirubin 1.8 mg/dL (0.2-1.3); Total Protein 6.9 g/dL (6.3-8.2)
[2024-04-30] MEDS: POTASSIUM CHLORIDE ER 20 MEQ TAB.ER PO STA (10:16)
[2024-04-30] MEDS: SODIUM CHLORIDE 0.9% 1,000 ML IV ONE (10:19)
--- NOTE | 2024-04-30 10:39 | XR ---
EXAMINATION TYPE: XR chest 2V DATE OF EXAM: 04/30/2024 10:32 AM COMPARISON: Chest radiographs from 07/06/2023 CLINICAL INDICATION: Male, 58 years old with history of upper respiratory; TECHNIQUE: XR chest 2V Frontal and lateral views of the chest. FINDINGS: Lungs/Pleura: There is no evidence of pleural effusion, focal consolidation, or pneumothorax. Pulmonary vascularity: Unremarkable. Heart/mediastinum: Cardiomediastinal silhouette is unremarkable. Musculoskeletal: No acute osseous pathology. Midline sternotomy wires are noted. IMPRESSION: No acute cardiopulmonary disease/process. [facility], , 04/30/2024 10:36 AM
[2024-04-30 11:54] LABS: Amorphous Sediment,Urine Rare /hpf; Appearance,Urine Turbid (Clear); Bilirubin,Urine Negative (Negative); Blood,Urine Negative (Negative); Color,Urine Yellow; Glucose,Urine (UA) Negative (Negative); Ketones,Urine Negative (Negative); Leukocyte Esterase,Urine Negative (Negative); Mucus,Urine Rare /hpf; Nitrite,Urine Negative (Negative); PH, Urine 7.5 (5.0-8.0); Protein,Urine Trace (Negative); RBC,Urine 3 /hpf (0-5); Specific Gravity,Urine 1.025 (1.001-1.035); WBC,Urine <1 /hpf (0-5)
--- NOTE | 2024-04-30 12:14 | ED ---
General Adult HPI - General Chief complaint: Dizziness Stated complaint: Dizziness,nausea Time Seen by Provider: 04/30/24 09:40 Source: patient, EMS, RN notes reviewed Mode of arrival: EMS Limitations: no limitations - History of Present Illness Initial comments: Patient is a 58-year-old male who presents emergency department complaining of lightheadedness and dizziness. Patient states that he awoke this morning got up and immediately went to the kitchen where he began feeling lightheaded. [place] off balance and lowered himself to the ground. Did not injure himself. Not hit his head. He is only on a baby aspirin. Denies any chest pain, shortness of breath. Has been having some coughing recently. Denies any abdominal pain, nausea, vomiting, diarrhea. Multiple sick contacts as well. Denies any fevers. Presented here for further evaluation. Denies vertigo symptoms. Denies headache or blurry vision. He has a significant cardiac history. Currently has no symptoms. Presents for further evaluation. I evaluate the patient when he was placed in room after laboratory studies returned. - Related Data Home Medications Medication Instructions Recorded Confirmed Aspirin [Adult Low Dose Aspirin EC] 81 mg PO DAILY 01/26/20 08/19/23 Metoprolol Succinate [Toprol XL] 12.5 mg PO QAM 01/26/20 08/19/23 tadalafiL [Cialis] 10 mg PO DAILY MDD erectile 01/26/20 08/19/23 dysfunction hydroCHLOROthiazide [Hydrodiuril] 50 mg PO DAILY 03/30/23 08/19/23 Fexofenadine HCl [Kirstin Allergy] 180 mg PO DAILY PRN 08/18/23 08/19/23 amLODIPine [Norvasc] 5 mg PO QAM 08/18/23 08/19/23 Previous Rx's Medication Instructions Recorded Atorvastatin [Lipitor] 40 mg PO DAILY #30 tab 10/16/18 Allergies Allergy/AdvReac Type Severity Reaction Status Date / Time bee venom protein (honey bee) Allergy Rash/Hives Verified 04/30/24 05:14 latex Allergy Rash/Hives Verified 04/30/24 05:14 Sulfa (Sulfonamide Allergy Rash/Hives Verified 04/30/24 05:14 Antibiotics) Review of Systems ROS Statement: Those systems with pertinent positive or pertinent negative responses have been documented in the HPI. Review of Systems: CONST: Denies fever EYES: Denies blurry vision ENT: Denies nasal congestion C/V: Denies Chest pain RESP: Denies shortness of breath GI: Denies abdominal pain : Denies dysuria SKIN: Denies rash. MSK: Denies joint pain. NEURO: Denies headache ROS Other: All systems not noted in ROS Statement are negative. Past Medical History Past Medical History: Chest Pain / Angina, Hyperlipidemia, Hypertension, Prostate Disorder, Sleep Apnea/CPAP/BIPAP Additional Past Medical History / Comment(s): SOB w/exertion, pt had sleep study, does not wear cpap, BPH History of Any Multi-Drug Resistant Organisms: None Reported Past Surgical History: Coronary Bypass/CABG, Heart Catheterization, Hernia Repair Additional Past Surgical History / Comment(s): 10/20 CABG double bypass, colonoscopies Past Anesthesia/Blood Transfusion Reactions: No Reported Reaction, Motion Sickness Additional Past Anesthesia/Blood Transfusion Reaction / Comment(s): no Past Psychological History: No Psychological Hx Reported Smoking Status: Former smoker Past Alcohol Use History: None Reported Past Drug Use History: None Reported - Past Family History Father Family Medical History: Myocardial Infarction ([place]) Additional Family Medical History / Comment(s): Cardiac stenting and 62 years old. Also maternal grandfather of massive myocardial infarction General Exam - General Exam Comments Initial Comments: General: Appears in no acute distress. HEAD: Normal with no signs of head trauma. EYES: PERRLA, EOMI, conjunctiva normal, no discharge. Pupils are 3 mm and equal bilaterally. ENT: Hearing grossly intact, normal oropharynx. RESPIRATORY: Clear breath sounds bilaterally. No wheezes, rales, or rhonchi. C/V: Regular rate and rhythm. S1 and S2 auscultated, no edema, peripheral pulses 2+ and intact throughout ABD: Abd is soft, nontender, nondistended EXT: Normal range of motion, no obvious deformity SKIN: No rashes or lesions observed on exposed skin. NEURO: Alert and oriented x 4. Cranial nerves II-XII intact. No focal sensory or strength deficits. GCS of 15. NIH is 0. Limitations: no limitations Course Vital Signs 04/30/24 04/30/24 04/30/24 05:13 10:05 12:14 Temperature 97.7 F 98.0 F Pulse Rate 82 80 79 Respiratory 18 22 19 Rate Blood Pressure 115/71 131/73 104/64 O2 Sat by Pulse 98 96 97 Oximetry Medical Decision Making - Medical Decision Making Was pt. sent in by a medical professional or institution (PRICILLA Barksdale, OTOLARYNGOLOGY TEACHER, urgent care, hospital, or usp...) When possible be specific @ -No Did you speak to anyone other than the patient for history (EMS, parent, family, police, friend...)? What history was obtained from this source @ -No Did you review nursing and triage notes (agree or disagree)? Why? @ -I reviewed and agree with nursing and triage notes Were old charts reviewed (outside hosp., previous admission, EMS record, old EKG, old radiological studies, urgent care reports/EKG's, usp records)? Report findings @ -No old charts were reviewed Differential Diagnosis (chest pain, altered mental status, abdominal pain women, abdominal pain men, vaginal bleeding, weakness, fever, dyspnea, syncope, headache, dizziness, GI bleed, back pain, seizure, CVA, palpatations, mental health, musculoskeletal)? @ -Dehydration, orthostatic hypotension, pneumonia, flu, RSV, CAD. This list is not all inclusive. EKG interpreted by me (3pts min.). @ -As above X-rays interpreted by me (1pt min.). @ -Chest x-ray reveals no obvious acute cardiopulmonary process. CT interpreted by me (1pt min.). @ -None done U/S interpreted by me (1pt. min.). @ -None done What testing was considered but not performed or refused? (CT, X-rays, U/S, labs)? Why? @ -None What meds were considered but not given or refused? Why? @ -None Did you discuss the management of the patient with other professionals (professionals i.e. PRICILLA Barksdale, OTOLARYNGOLOGY TEACHER, lab, RT, psych nurse, social worker psychiatric, charge auditor, teacher, state highway police officer, employment case manager)? Give summary @ -No Was smoking cessation discussed for >3mins.? @ -No Was critical care preformed (if so, how long)? @ -No Were there social determinants of health that impacted care today? How? (Homelessness, low income, unemployed, alcoholism, drug addiction, transportation, low edu. Level, literacy, decrease access to med. care, usp, rehab)? @ -No Was there de-escalation of care discussed even if they declined (Discuss DNR or withdrawal of care, Hospice)? DNR status @ -No What co-morbidities impacted this encounter? (DM, HTN, Smoking, COPD, CAD, Cancer, CVA, ARF, Chemo, Hep., AIDS, mental health diagnosis, sleep apnea, morbid obesity)? @ -None Was patient admitted / discharged? Hospital course, mention meds given and route, prescriptions, significant lab abnormalities, going to OR and other pertinent info. @ -Patient presents with lightheadedness episode that occurred this morning that is since resolved. He has no other symptoms other than URI symptoms. Does have a significant cardiac history and is concerned regarding his heart. Vitals are within acceptable limits. Neuroexam unremarkable and patient can ambulate without issue. Patient received basic workup so far when I evaluated him. Labs are remarkable for mild hypokalemia 3.0 which was replenished. Patient has an undetectable troponin. We are awaiting viral swabs, urinalysis, and we will obtain a repeat troponin. Initial EKG unremarkable. Patient was in agreement this plan. He is asymptomatic. He will be given IV fluids. Repeat troponin undetectable. Urinalysis negative. Patient is positive for COVID-19 infection. Repeat EKG shows no signs of acute ischemia no dynamic changes. I updated patient. He remains asymptomatic and can ambulate without issue. He will be discharged home at this time. Discussed results of his workup. He was in agreement this plan. Strict return precautions discussed. Discussed results with the patient. Stated that the lightheadedness episode earlier likely related to the dehydration, and COVID-19 infection. I instructed the patient to follow up with their PCP in the next 1-3 days. I explained that the patient should return to the emergency department if they experience any worsening symptoms. Strict return precautions were discussed with the patient. The patient expressed understanding of these instructions. I answered all questions that the patient had. The patient was discharged home in good condition with their prescriptions and follow up information. Undiagnosed new problem with uncertain prognosis? @ -No Drug Therapy requiring intensive monitoring for toxicity (Heparin, Nitro, Insulin, Cardizem)? @ -No Were any procedures done? @ -No Diagnosis/symptom? @ -Dehydration, COVID-19 infection, hypokalemia Acute, or Chronic, or Acute on Chronic? @ -Acute Uncomplicated (without systemic symptoms) or Complicated (systemic symptoms)? @ -Complicated Side effects of treatment? @ -No Exacerbation, Progression, or Severe Exacerbation? @ -No Poses a threat to life or bodily function? How? (Chest pain, [place], [place], pneumonia, PE, COPD, DKA, ARF, appy, cholecystitis, CVA, Diverticulitis, Homicidal, Suicidal, threat to staff... and all critical care pts) @ -Unlikely - Lab Data Result diagrams: 04/30/24 05:18 04/30/24 05:18 Lab Results 04/30/24 04/30/24 04/30/24 Range/Units 05:18 05:18 05:18 WBC 10.3 (3.8-10.6) k/uL RBC 5.33 (4.30-5.90) m/uL Hgb 15.4 (13.0-17.5) gm/dL Hct 46.2 (39.0-53.0) % MCV 86.7 (80.0-100.0) fL MCH 28.9 (25.0-35.0) pg MCHC 33.3 (31.0-37.0) g/dL RDW 13.2 (11.5-15.5) % Plt Count 255 (150-450) k/uL MPV 7.6 Neutrophils % 77 % Lymphocytes % 16 % Monocytes % 4 % Eosinophils % 2 % Basophils % 0 % Neutrophils # 7.9 H (1.3-7.7) k/uL Lymphocytes # 1.7 (1.0-4.8) k/uL Monocytes # 0.4 (0-1.0) k/uL Eosinophils # 0.2 (0-0.7) k/uL Basophils # 0.0 (0-0.2) k/uL PT 11.2 (10.0-12.5) sec INR 1.0 (<1.2) Sodium 135 L (137-145) mmol/L Potassium 3.0 L (3.5-5.1) mmol/L Chloride 99 (98-107) mmol/L Carbon Dioxide 30 (22-30) mmol/L Anion Gap 6 mmol/L BUN 15 (9-20) mg/dL Creatinine 0.83 (0.66-1.25) mg/dL Est GFR (CKD-EPI)AfAm >90 (>60 ml/min/1.73 sqM) Est GFR (CKD-EPI)NonAf >90 (>60 ml/min/1.73 sqM) Glucose 142 H (74-99) mg/dL Calcium 9.3 (8.4-10.2) mg/dL Total Bilirubin 1.8 H (0.2-1.3) mg/dL AST 32 (17-59) U/L ALT 40 (4-49) U/L Alkaline Phosphatase 91 (38-126) U/L Troponin I (0.000-0.034) ng/mL Total Protein 6.9 (6.3-8.2) g/dL Albumin 4.0 (3.5-5.0) g/dL Urine Color Urine Appearance (Clear) Urine pH (5.0-8.0) Ur Specific [place] (1.001-1.035) Urine Protein (Negative) Urine Glucose (UA) (Negative) Urine Ketones (Negative) Urine Blood (Negative) Urine Nitrite (Negative) Urine Bilirubin (Negative) Urine Urobilinogen (<2.0) mg/dL Ur Leukocyte Esterase (Negative) Urine RBC (0-5) /hpf Urine WBC (0-5) /hpf Amorphous Sediment (None) /hpf Urine Mucus (None) /hpf Influenza Type A (PCR) (Not Detectd) Influenza Type B (PCR) (Not Detectd) RSV (PCR) (Not Detectd) SARS-CoV-2 (PCR) (Not Detectd) 04/30/24 04/30/24 04/30/24 Range/Units 05:18 10:15 10:15 WBC (3.8-10.6) k/uL RBC (4.30-5.90) m/uL Hgb (13.0-17.5) gm/dL Hct (39.0-53.0) % MCV (80.0-100.0) fL MCH (25.0-35.0) pg MCHC (31.0-37.0) g/dL RDW (11.5-15.5) % Plt Count (150-450) k/uL MPV Neutrophils % % Lymphocytes % % Monocytes % % Eosinophils % % Basophils % % Neutrophils # (1.3-7.7) k/uL Lymphocytes # (1.0-4.8) k/uL Monocytes # (0-1.0) k/uL Eosinophils # (0-0.7) k/uL Basophils # (0-0.2) k/uL PT (10.0-12.5) sec INR (<1.2) Sodium (137-145) mmol/L Potassium (3.5-5.1) mmol/L Chloride (98-107) mmol/L Carbon Dioxide (22-30) mmol/L Anion Gap mmol/L BUN (9-20) mg/dL Creatinine (0.66-1.25) mg/dL Est GFR (CKD-EPI)AfAm (>60 ml/min/1.73 sqM) Est GFR (CKD-EPI)NonAf (>60 ml/min/1.73 sqM) Glucose (74-99) mg/dL Calcium (8.4-10.2) mg/dL Total Bilirubin (0.2-1.3) mg/dL AST (17-59) U/L ALT (4-49) U/L Alkaline Phosphatase (38-126) U/L Troponin I <0.012 <0.012 (0.000-0.034) ng/mL Total Protein (6.3-8.2) g/dL Albumin (3.5-5.0) g/dL Urine Color Urine Appearance (Clear) Urine pH (5.0-8.0) Ur Specific [place] (1.001-1.035) Urine Protein (Negative) Urine Glucose (UA) (Negative) Urine Ketones (Negative) Urine Blood (Negative) Urine Nitrite (Negative) Urine Bilirubin (Negative) Urine Urobilinogen (<2.0) mg/dL Ur Leukocyte Esterase (Negative) Urine RBC (0-5) /hpf Urine WBC (0-5) /hpf Amorphous Sediment (None) /hpf Urine Mucus (None) /hpf Influenza Type A (PCR) Not Detected (Not Detectd) Influenza Type B (PCR) Not Detected (Not Detectd) RSV (PCR) Not Detected (Not Detectd) SARS-CoV-2 (PCR) Detected A (Not Detectd) 04/30/24 Range/Units 11:28 WBC (3.8-10.6) k/uL RBC (4.30-5.90) m/uL Hgb (13.0-17.5) gm/dL Hct (39.0-53.0) % MCV (80.0-100.0) fL MCH (25.0-35.0) pg MCHC (31.0-37.0) g/dL RDW (11.5-15.5) % Plt Count (150-450) k/uL MPV Neutrophils % % Lymphocytes % % Monocytes % % Eosinophils % % Basophils % % Neutrophils # (1.3-7.7) k/uL Lymphocytes # (1.0-4.8) k/uL Monocytes # (0-1.0) k/uL Eosinophils # (0-0.7) k/uL Basophils # (0-0.2) k/uL PT (10.0-12.5) sec INR (<1.2) Sodium (137-145) mmol/L Potassium (3.5-5.1) mmol/L Chloride (98-107) mmol/L Carbon Dioxide (22-30) mmol/L Anion Gap mmol/L BUN (9-20) mg/dL Creatinine (0.66-1.25) mg/dL Est GFR (CKD-EPI)AfAm (>60 ml/min/1.73 sqM) Est GFR (CKD-EPI)NonAf (>60 ml/min/1.73 sqM) Glucose (74-99) mg/dL Calcium (8.4-10.2) mg/dL Total Bilirubin (0.2-1.3) mg/dL AST (17-59) U/L ALT (4-49) U/L Alkaline Phosphatase (38-126) U/L Troponin I (0.000-0.034) ng/mL Total Protein (6.3-8.2) g/dL Albumin (3.5-5.0) g/dL Urine Color Yellow Urine Appearance Turbid (Clear) Urine pH 7.5 (5.0-8.0) Ur Specific [place] 1.025 (1.001-1.035) Urine Protein Trace H (Negative) Urine Glucose (UA) Negative (Negative) Urine Ketones Negative (Negative) Urine Blood Negative (Negative) Urine Nitrite Negative (Negative) Urine Bilirubin Negative (Negative) Urine Urobilinogen 2.0 (<2.0) mg/dL Ur Leukocyte Esterase Negative (Negative) Urine RBC 3 (0-5) /hpf Urine WBC <1 (0-5) /hpf Amorphous Sediment Rare H (None) /hpf Urine Mucus Rare H (None) /hpf Influenza Type A (PCR) (Not Detectd) Influenza Type B (PCR) (Not Detectd) RSV (PCR) (Not Detectd) SARS-CoV-2 (PCR) (Not Detectd) - EKG Data -: EKG Interpreted by Me EKG Comments: 12-lead Electrocardiogram Interpretation Note EKG was reviewed and interpreted by myself. 12-lead ECG performed at 0520 is interpreted by me as revealing normal sinus rhythm at a rate of 79 beats per minute. [place] is normal. SD interval is 210 ms, QRS duration is 94 ms, QTc is 418 ms.. There were no ST or T wave abnormalities to suggest myocardial ischemia or injury. R wave progression across the precordium was satisfactory. By my interpretation this EKG is non-diagnostic for acute ischemia. 12-lead Electrocardiogram Interpretation Note EKG was reviewed and interpreted by myself. 12-lead ECG performed at 1155 is interpreted by me as revealing normal sinus rhythm at a rate of 73 beats per minute. [place] is normal. SD interval is 2019 ms, QRS duration is 97 ms, QTc is 429 ms.. There were no ST or T wave abnormalities to suggest myocardial ischemia or injury. R wave progression across the precordium was satisfactory. By my interpretation this EKG is non-diagnostic for acute ischemia. No changes when compared with previous EKG. Disposition Clinical Impression: COVID-19, Hypokalemia, Dehydration Disposition: HOME SELF-CARE Condition: Good Instructions (If sedation given, give patient instructions): Dehydration (ED), Dizziness (ED), COVID-19 (Coronavirus Disease 2019) (ED) Is patient prescribed a controlled substance at d/c from ED?: No Referrals: Gentry Banegas MD [Primary Care Provider] - 1-2 days Time of Disposition: 12:10
[2024-04-30 12:24] VITALS: BP 104/64; PULSE 79; RESP 19; TEMP 98
== END 2024-04-30 13:26 | disposition home or self-care (01) ==
LOC: EC 05:10
DX: U07.1 COVID-19 (principal); E86.0 Dehydration; E87.6 Hypokalemia; Z88.1 Allergy status to other antibiotic agents; Z88.2 Allergy status to sulfonamides; Z91.030 Bee allergy status; Z91.040 Latex allergy status; Z87.891 Personal history of nicotine dependence; Z95.1 Presence of aortocoronary bypass graft
CPT/HCPCS: 36415; 71046; 80053; 81001; 84484; 85025; 85610; 87636; 93005; 96360; 99284